=== PATIENT | female | born 1980 | race Caucasian/White ===

== ENCOUNTER → 2017-11-14 | Outpatient (CLI) | payer MEDICAID, SELFPAY | PROVIDERS: Family Provider Emergency Medicine; Visit Provider Orthopaedic Surgery | DX: Z48.89 Encounter for other specified surgical aftercare (principal) | CPT/HCPCS: 73560 ==

== ENCOUNTER 2017-11-15 17:08 | Emergency (ER) | payer MEDICAID, SELFPAY | END 2017-11-15 18:39 | disposition home or self-care (01) | PROVIDERS: Emergency Provider Emergency Medicine; Family Provider Nurse Practitioner Family; Visit Provider Emergency Medicine | DX: F41.0 Panic disorder [episodic paroxysmal anxiety] (principal); I10 Essential (primary) hypertension; J45.909 Unspecified asthma, uncomplicated; K21.9 Gastro-esophageal reflux disease without esophagitis; E03.9 Hypothyroidism, unspecified | CPT/HCPCS: 36415; 84484; 93005; 99283 ==

== ENCOUNTER → 2017-11-29 15:11 | Outpatient (REF) | payer MEDICAID, SELFPAY ==
[2017-11-29 17:29] LABS: Thyroid Stimulating Hormone 3.79 uIU/ml (0.358-3.740)
== END ==
LOC: LAB 15:11
PROVIDERS: Visit Provider Nurse Practitioner Family
DX: F41.9 Anxiety disorder, unspecified (principal)
CPT/HCPCS: 84439; 84443

== ENCOUNTER → 2018-01-10 12:44 | Outpatient (CLI) | payer MEDICAID, SELFPAY ==
--- NOTE | 2018-01-10 12:49 | US_ITS ---
US transvaginal HISTORY: Left lower quadrant pain, recent IUD in place ITS.REASON: LLQP ORDERING PHYSICIAN: Rajesh Rivas MD PATIENT AGE: 37 years COMPARISON: None FINDINGS: The uterus is slightly enlarged at 9.5 x 4.7 x 5.8 cm. Endometrium is thickened at 16 mm. Nabothian cysts are present measuring up to 13 mm. An IUD is demonstrated in the mid aspect of the endometrial area. The right ovary is 2.7 x 2.5 cm and contains a 1.5 cm cyst and another smaller cyst. The left ovary is 2.3 x 1.4 cm and has an unremarkable appearance. No cul-de-sac fluid is evident. IMPRESSION: 1. Enlarged uterus with thickened endometrium with IUD in place. 2. 1.5 cm right ovarian cyst.
== END ==
PROVIDERS: Family Provider Nurse Practitioner Family; PCP Nurse Practitioner Family; Visit Provider Nurse Practitioner Obstetrics & Gynecology
DX: R10.32 Left lower quadrant pain (principal)
CPT/HCPCS: 76830

== ENCOUNTER → 2018-03-01 12:53 | Outpatient (CLI) | payer MEDICAID, SELFPAY ==
[2018-03-01 15:33] LABS: Free T4 (Free Thyroxine) 0.92 ng/dl (0.76-1.46); Thyroid Stimulating Hormone 1.97 uIU/ml (0.358-3.740)
[2018-03-02 19:05] LABS: Triiodothyronine (T3) Free 2.8 pg/mL (2.0-4.4)
== END ==
PROVIDERS: PCP Nurse Practitioner Family; Visit Provider Otolaryngology
DX: E03.9 Hypothyroidism, unspecified (principal)
CPT/HCPCS: 36415; 84439; 84443; 84481

== ENCOUNTER → 2018-08-16 12:13 | Outpatient (CLI) | payer MEDICAID, SELFPAY ==
[2018-08-16 12:18] LABS: Microscopic, Urine URINE MICROSCOPIC (MICROSCOPIC)
[2018-08-16 12:56] LABS: Appearance,Urine SL CLOUDY (Clear); Blood, Urine Negative (Negative); Glucose,Urine (UA) Negative (Negative); Ketones,Urine 2+ (Negative); Leukocyte Esterase,Urine Negative (Negative); Nitrate,Urine Negative (Negative); Protein,Urine Negative (Negative); Specific Gravity, Urine 1.025 (1.005-1.030); Urobilinogen,Urine 0.2 EU/dl (0.2)
[2018-08-16 13:00] LABS: Color,Urine Dark Yellow (Yellow)
[2018-08-16 13:01] LABS: Bilirubin,Urine Negative (Negative)
[2018-08-16 13:29] LABS: Alanine Aminotransferase 72 U/L (12-78); Albumin Level 4.1 gm/dL (3.4-5.0); Albumin/Globulin Ratio 1.2 (1.1-1.8); Alkaline Phosphatase 134 U/L (46-116); Aspartate Amino Transferase 32 U/L (15-37); Bilirubin,Total 0.8 mg/dL (0.2-1.0); Blood Urea Nitrogen 11 mg/dL (7-18); Calcium 9.3 mg/dL (8.5-10.1); Carbon Dioxide 26 mmol/L (21.0-32.0); Chloride 103 mmol/L (98-107); Estimated Glomerular Filt Rate 94 ml/min (>60); GFR (African American) 114 ML/MIN (>60); Globulin 3.5 gm/dl (1.3-3.2); Glucose 89 mg/dL (74-106); Sodium 140 mmol/L (136-145); T4 (Thyroxine) 10.5 ug/dl (4.7-13.3); Thyroid Stimulating Hormone 0.39 uIU/ml (0.358-3.740); Total Protein,Serum 7.6 gm/dL (6.4-8.2)
[2018-08-16 13:41] LABS: Squamous Epithelial Cell,Urine 50-100 #/hpf (0-5); WBC,Urine Occasional #/hpf (0-3)
[2018-08-16 13:42] LABS: Bacteria,Urine 1+ /lpf
[2018-08-16 17:11] LABS: Basophils % 0.5 % (0.1-2.0); Eosinophils # 0.1 K/mm3 (0.0-0.4); Eosinophils % 1.1 % (0.1-12.0); Hematocrit 40.4 % (37.0-47.0); Hemoglobin 12.7 g/dL (12.2-16.2); Lymphocytes # 1.3 K/mm3 (0.7-4.5); Lymphocytes % 27.2 K/mm3 (10-50); Mean Corpuscular HGB Conc 31.5 g/dL (31.8-35.4); Mean Platelet Volume 9.3 fl (7.4-10.4); Monocytes # 0.4 K/mm3 (0.1-1.0); Monocytes % 7.9 % (1.7-9.3); Neutrophils # 3.1 K/mm3 (1.8-7.8); Neutrophils % 63.3 % (37.0-80.0); Platelet Count 301 K/mm3 (142-424); Red Blood Count 4.39 M/mm3 (4.20-5.40); Red Cell Distribution Width 14.2 % (11.5-17.5)
[2018-08-17 18:20] LABS: Vitamin B12 403 pg/mL (232-1245)
[2018-08-20 02:08] LABS: 1,25-Dihydroxy, Vitamin D-2 <10 pg/mL (.)
[2018-08-20 06:12] LABS: 1,25 Dihydroxy Vitamin D 36 pg/mL (.)
[2018-08-20 06:13] LABS: 1,25-Dihydroxy, Vitamin D-3 36 pg/mL (.)
== END ==
PROVIDERS: PCP Nurse Practitioner Family; Visit Provider Nurse Practitioner Family
DX: R53.83 Other fatigue (principal); R42 Dizziness and giddiness; F41.9 Anxiety disorder, unspecified
CPT/HCPCS: 36415; 80053; 81001; 82607; 82652; 84436; 84443; 85025; 93225; 93226

== ENCOUNTER → 2018-09-10 15:32 | Outpatient (CLI) | payer MEDICAID, SELFPAY ==
[2018-09-10 16:42] LABS: Anion Gap 14.7 mEq/L (5-15); Blood Urea Nitrogen 14 mg/dL (7-18); Calcium 9.2 mg/dL (8.5-10.1); Carbon Dioxide 27 mmol/L (21.0-32.0); Chloride 104 mmol/L (98-107); Creatinine,Serum 0.75 mg/dL (0.55-1.02); Estimated Glomerular Filt Rate 87 ml/min (>60); Free Thyroxine Index 3.4 ug/dL (5.93-13.13); GFR (African American) 105 ML/MIN (>60); Glucose 96 mg/dL (74-106); Potassium 3.7 mmoL/L (3.5-5.1); Sodium 142 mmol/L (136-145); T4 (Thyroxine) 9.3 ug/dl (4.7-13.3); Thyroid Stimulating Hormone 0.54 uIU/ml (0.358-3.740); Triiodothryronine (T3) Uptake 37 % (31-39)
== END ==
PROVIDERS: Family Provider Nurse Practitioner Family; PCP Nurse Practitioner Family; Visit Provider Physician Assistant
DX: R00.2 Palpitations (principal); I47.1 Supraventricular tachycardia; R06.09 Other forms of dyspnea; R07.9 Chest pain, unspecified; Z82.49 Family history of ischemic heart disease and other diseases of the circulatory system
CPT/HCPCS: 36415; 80048; 83735; 84436; 84443; 84479

== ENCOUNTER → 2018-09-19 13:50 | Outpatient (CLI) | payer MEDICAID, SELFPAY ==
--- NOTE | 2018-09-19 13:52 | CA_ITS ---
PROCEDURE: 2-D M-mode and color Doppler study INDICATIONS FOR THE TEST: Chest pain COPD Heart Murmur Tobacco Smoking Palpitations+ Fatigue+ Syncope Edema+ Hypertension Diabetes Mellitus Rheumatic Fever SOB+CHAPA+Obesity+Hyperlipidemia Family History HD+ Additional History SVT,hx of gastric sleeve surgery 07/2018 symptoms worse since then PATIENT INFORMATION HEIGHT: 69 WEIGHT: 324 GENDER: Female B/P: 151/85 2-D/M-MODE INTERPRETATION: 2-D MEASUREMENTS OBSERVED VALUES IN CMS Right Ventricular Dimension (RVDd) 2.5 Interventricular Septum (Thickness)(IVsd) 1.1 Left Ventricular Internal Dimensions(LVIDd) 5.6 Left Ventricular Posterior Wall (Thickness)(LVPWd) 1.1 Aortic Root 3.0 Aortic Cusp Separation 2.4 Left Atrial Dimensions (LAD) 4.3 2D 1. Left atrium is qualitatively mildly enlarged, left ventricle is normal size, there is no concentric left ventricular hypertrophy, visually estimated ejection fraction 55% with no regional wall motion abnormality. 2. Right atrium and right ventricle are normal size and contractility. 3. The aortic, mitral and tricuspid valvular grossly normal. 4. The pulmonic valve is poorly visualized. 5. No significant pericardial effusion noted. DOPPLER INTERROGATION: Doppler interrogation of the aortic, mitral and tricuspid valvular presence of mild mitral and tricuspid regurgitation, tricuspid regurgitation jet velocity is inadequate for calculation of the right ventricular systolic pressure, diastolic parameters are within normal range. CONCLUSION: 1. Mildly enlarged left atrium, normal left ventricular size, visually estimated ejection fraction 55% with no regional wall motion abnormality, diastolic parameters are within normal range. 2. Mild mitral and tricuspid regurgitation 3. No significant pericardial effusion noted.
== END ==
PROVIDERS: PCP Emergency Medicine; Visit Provider Internal Medicine
DX: I47.1 Supraventricular tachycardia (principal); R00.2 Palpitations; R06.09 Other forms of dyspnea; R07.9 Chest pain, unspecified; Z82.49 Family history of ischemic heart disease and other diseases of the circulatory system
CPT/HCPCS: 93306

== ENCOUNTER → 2019-01-02 16:16 | Outpatient (CLI) | payer MEDICAID, SELFPAY ==
[2019-01-02 17:24] LABS: Basophils % 0.6 % (0.1-2.0); Eosinophils # 0.1 K/mm3 (0.0-0.4); Eosinophils % 0.9 % (0.1-12.0); Hematocrit 41.5 % (37.0-47.0); Hemoglobin 13.2 g/dL (12.2-16.2); Mean Corpuscular HGB Conc 31.9 g/dL (31.8-35.4); Mean Corpuscular Hemoglobin 30.2 pg (27.0-31.2); Mean Corpuscular Volume 94.6 fl (81-99); Mean Platelet Volume 7.5 fl (7.4-10.4); Monocytes # 0.4 K/mm3 (0.1-1.0); Monocytes % 5.9 % (1.7-9.3); Neutrophils # 4.6 K/mm3 (1.8-7.8); Neutrophils % 64.6 % (37.0-80.0); Platelet Count 294 K/mm3 (142-424); Red Blood Count 4.39 M/mm3 (4.20-5.40); Red Cell Distribution Width 13.4 % (11.5-17.5); White Blood Count 7.2 K/mm3 (4.8-10.8)
[2019-01-02 18:11] LABS: Alanine Aminotransferase 57 U/L (12-78); Albumin/Globulin Ratio 1.1 (1.1-1.8); Alkaline Phosphatase 113 U/L (46-116); Amylase 41 U/L (25-115); Anion Gap 13.2 mEq/L (5-15); Aspartate Amino Transferase 24 U/L (15-37); Bilirubin,Total 0.6 mg/dL (0.2-1.0); Blood Urea Nitrogen 17 mg/dL (7-18); Calcium 9.4 mg/dL (8.5-10.1); Carbon Dioxide 27 mmol/L (21.0-32.0); Chloride 103 mmol/L (98-107); Creatinine,Serum 0.79 mg/dL (0.55-1.02); Estimated Glomerular Filt Rate 82 ml/min (>60); GFR (African American) 99 ML/MIN (>60); Globulin 3.5 gm/dl (1.3-3.2); Glucose 86 mg/dL (74-106); Lipase 123 u/L (73-393); Potassium 4.2 mmoL/L (3.5-5.1); Sodium 139 mmol/L (136-145); Total Protein,Serum 7.5 gm/dL (6.4-8.2)
[2019-01-04 07:16] LABS: Hep A Ab, IgM Negative (Negative); Hepatitis B Core Antibody IgM Negative (Negative); Hepatitis B Surface Antigen Negative (Negative)
[2019-01-07 09:52] LABS: Hepatitis C Antibody <0.1 s/co ratio (0.0-0.9)
== END ==
PROVIDERS: Visit Provider Nurse Practitioner Family
DX: R74.8 Abnormal levels of other serum enzymes (principal)
CPT/HCPCS: 36415; 80053; 80074; 82150; 83690; 85025

== ENCOUNTER 2019-04-20 12:25 | Emergency (ER) | payer MEDICAID, SELFPAY ==
[2019-04-20 12:35] VITALS: BP 144/85; PULSE 68; RESP 19; TEMP 36.5; O2SAT 99; BMI 37.2
--- NOTE | 2019-04-20 13:37 | HMH.EDUTC ---
[facility] [place]ression: Lower back pain Qualifiers: Chronicity: acute Back pain laterality: left Sciatica presence: with sciatica Sciatica laterality: sciatica of left side Qualified Code(s): M54.42 - Lumbago with sciatica, left side Disposition: Home, Self-Care Condition on Discharge: Good Instructions: Sciatica (Alternative Therapy), Sciatica, Low Back Pain, DI for Low Back Pain, DI for Sciatica, DI for Chronic Pain -- Adult, DI for Back Pain With Sciatica Additional Instructions: *Ibuprofen mick 6 hours with meal as needed for pain/inflammation *Remember you had a Toradol shot in the clinic today, which is similar to Motrin *Not additional anti-inflammatory like motrin, aleve, advil with the above amount of ibuprofen. You can still take Tylenol every 4 hours as needed if you need something else for pain *Ice 20 minutes every 2 hours for the first 48 hours after the initial injury followed by moist heat every 20 minutes 3-4 times a day to affected area *Muscle relaxer every 8 hours as needed for muscle spasms but remember, it WILL cause drowsiness You cannot take it and drive, operate machinery or care for small children. *Keep this area active, no movement leads to more stiffness, However take it easy and avoid heavy lifting pushing or pulling *Follow up with you family doctor if no improvement for further treatment Make sure to do stretches like you was shown in [facility] these may help to relieve sciatica pain Straight to ER if any life threatening symptoms Prescriptions: Cyclobenzaprine HCl [Flexeril 10mg tablet] 10 mg PO TID PRN #12 tab PRN Reason: Muscle Spasm Referrals: Lauren Kwong APRN [Primary Care Provider] - As needed Time of Disposition: 13:46 Medical Decision Making - Carlo Inquiry Pt receiving controlled substance: No Carlo was queried for this patient: No Vital Signs: 04/20/19 12:35 Temperature 97.7 F Temperature Source Oral Pulse Rate [Right Brachial] 68 Respiratory Rate 19 Blood Pressure [Right Arm] 144/85 H Blood Pressure Mean [Right Arm] 104 Blood Pressure Source [Right Arm] Automatic Cuff Blood Pressure Position [Right Arm] Sitting 02 Sat by Pulse Oximetry 99 Oxygen Delivery Method Room Air Orders (Tests/Meds): ED MEDICATIONS Discontinued Medications Generic Name Dose Route Start Last Admin Trade Name Freq PRN Reason Stop Dose Admin Ketorolac Tromethamine 60 mg 04/20/19 13:37 04/20/19 13:49 Toradol 60mg/2ml Vial IM 04/20/19 13:38 60 mg ONCE ONE Administration Methylprednisolone Sodium Succinate 125 mg 04/20/19 13:37 04/20/19 13:49 Solu-Medrol 125mg/2ml Vial IM 04/20/19 13:38 125 mg ONCE ONE Administration - Reevaluation(s) Time: 13:43 Reevaluation #1: Denies [facility] [place] - General Stated complaint: back pain Time Seen by Provider: 04/20/19 13:37 Mode of Arrival: Family Vehicle Source of Information: Patient Limitations: No Limitations Description of Symptoms (Recalled from Triage Doc. by RN): C/O LEFT SIDED SCIATIC PAIN HEENT Symptoms (Recalled from RN notes): No Resp Symptoms (Recalled from RN notes): No Skin Symptoms (Recalled from RN notes): No MS Symptoms (Recalled from RN notes): Yes Functional Status (Recalled from RN notes): N/A - History of Present Illness Provider Complaint: Patient states that she has history of sciatica States that she noticed she was starting to have pain in her lower back area and it was radiating down left leg states it has continued to get worse so she came in to get it checked before it got to bad Denies bowel or bladder involvement - Related Data Home Medications Medication Instructions Recorded Confirmed levonorgestrel 20 mcg/24 hours (5 1 insert INTRAUTERI ONCE 01/08/18 04/10/19 yrs) 52 mg intrauterine device omeprazole 20 mg capsule,delayed 20 mg PO DAILY 30 Days #30 cap 08/16/18 04/10/19 release Albuterol Sulfate [Albuterol HFA 1 puff INHALATION Q6H 08/19/18
--- NOTE | 2019-04-20 13:40 | ED_ITS ---
[facility] [place] Clinical Impression: Lower back pain Qualifiers: Chronicity: acute Back pain laterality: left Sciatica presence: with sciatica Sciatica laterality: sciatica of left side Qualified Code(s): M54.42 - Lumbago with sciatica, left side Disposition: Home, Self-Care Condition on Discharge: Good Instructions: Sciatica (Alternative Therapy), Sciatica, Low Back Pain, DI for Low Back Pain, DI for Sciatica, DI for Chronic Pain -- Adult, DI for Back Pain With Sciatica Additional Instructions: *Ibuprofen mick 6 hours with meal as needed for pain/inflammation *Remember you had a Toradol shot in the clinic today, which is similar to Motrin *Not additional anti-inflammatory like motrin, aleve, advil with the above amount of ibuprofen. You can still take Tylenol every 4 hours as needed if you n eed something else for pain *Ice 20 minutes every 2 hours for the first 48 hours after the initial injury followed by moist heat every 20 minutes 3-4 times a day to affected area *Muscle relaxer every 8 hours as needed for muscle spasms but remember, it WILL cause drowsiness You cannot take it and drive, operate machinery or care for small children. *Keep this area active, no movement leads to more stiffness, However take it easy and avoid heavy lifting pushing or pulling *Follow up with you family doctor if no improvement for further treatment Make sure to do stretches like you was shown in [facility] these may help to relieve sciatica pain Straight to ER if any life threatening symptoms Prescriptions: Cyclobenzaprine HCl [Flexeril 10mg tablet] 10 mg PO TID PRN #12 tab PRN Reason: Muscle Spasm Referrals: Lauren Kwong APRN [Primary Care Provider] - As needed Time of Disposition: 13:46 Medical Decision Making - Carlo Inquiry Pt receiving controlled substance: No Carlo was queried for this patient: No Vital Signs: 04/20/19 12:35 Temperature 97.7 F Temperature Source Oral Pulse Rate [Right Brachial] 68 Respiratory Rate 19 Blood Pressure [Right Arm] 144/85 H Blood Pressure Mean [Right Arm] 104 Blood Pressure Source [Right Arm] Automatic Cuff Blood Pressure Position [Right Arm] Sitting 02 Sat by Pulse Oximetry 99 Oxygen Delivery Method Room Air Orders (Tests/Meds): ED MEDICATIONS Discontinued Medications Generic Name Dose Route Start Last Admin Trade Name Eidlberto PRN Reason Stop Dose Admin Ketorolac Tromethamine 60 mg 04/20/19 13:37 04/20/19 13:49 Toradol 60mg/2ml Vial IM 04/20/19 13:38 60 mg ONCE ONE Administration Methylprednisolone Sodium Succinate 125 mg 04/20/19 13:37 04/20/19 13:49 Solu-Medrol 125mg/2ml Vial IM 04/20/19 13:38 125 mg ONCE ONE Administration - Reevaluation(s) Time: 13:43 Reevaluation #1: Denies [facility] [place] - General Stated complaint: back pain Time Seen by Provider: 04/20/19 13:37 Mode of Arrival: Family Vehicle Source of Information: Patient Limitations: No Limitations Description of Symptoms (Recalled from Triage Doc. by RN): C/O LEFT SIDED SCIATIC PAIN HEENT Symptoms (Recalled from RN notes): No Resp Symptoms (Recalled from RN notes): No Skin Symptoms (Recalled from RN notes): No MS Symptoms (Recalled from RN notes): Yes Functional Status (Recalled from RN notes): N/A - History of Present Illness Provider Complaint: Patient
[2019-04-20 14:00] VITALS: BP 144/85; PULSE 68; RESP 19; TEMP 36.5; O2SAT 99
== END 2019-04-20 14:01 | disposition home or self-care (01) ==
PROVIDERS: Emergency Provider Nurse Practitioner; PCP Nurse Practitioner Family
DX: M54.42 Lumbago with sciatica, left side (principal); J45.909 Unspecified asthma, uncomplicated; F41.8 Other specified anxiety disorders; E03.9 Hypothyroidism, unspecified; E78.5 Hyperlipidemia, unspecified; I10 Essential (primary) hypertension
CPT/HCPCS: 96372; 99201

== ENCOUNTER → 2019-06-23 13:53 | Outpatient (CLI) | payer MEDICAID, SELFPAY ==
[2019-06-23 16:21] LABS: Thyroid Stimulating Hormone 0.63 uIU/ml (0.358-3.740)
== END ==
PROVIDERS: Visit Provider Nurse Practitioner Family
DX: R53.83 Other fatigue (principal)
CPT/HCPCS: 84439; 84443

== ENCOUNTER → 2019-09-24 17:52 | Outpatient (CLI) | payer OTHER, SELFPAY ==
[2019-09-24 19:05] LABS: T4 (Thyroxine) 12.6 ug/dl (4.7-13.3); Thyroid Stimulating Hormone 0.23 uIU/ml (0.358-3.740)
[2019-09-24 19:33] LABS: Hemoglobin A1C 5.5 % (0.0-7.0)
== END ==
PROVIDERS: Visit Provider Nurse Practitioner Family
DX: R79.89 Other specified abnormal findings of blood chemistry (principal); R73.09 Other abnormal glucose
CPT/HCPCS: 83036; 84436; 84443

== ENCOUNTER 2020-09-18 20:08 | Emergency (ER) | payer OTHER, SELFPAY ==
[2020-09-18 20:14] VITALS: BP 141/81; PULSE 68; RESP 19; TEMP 37.1; O2SAT 100; BMI 28.6
--- NOTE | 2020-09-18 20:23 | HMH.EDUTC ---
[facility] [place] Clinical Impression: Lower back pain Qualifiers: Chronicity: unspecified Back pain laterality: left Sciatica presence: with sciatica Sciatica laterality: sciatica of left side Qualified Code(s): M54.42 - Lumbago with sciatica, left side Disposition: Home, Self-Care Condition on Discharge: Good Instructions: Sciatica, Low Back Pain, DI for Low Back Pain, DI for Sciatica, Methocarbamol Additional Instructions: *Ibuprofen mick 6 hours with meal as needed for pain/inflammation *Not additional anti-inflammatory like motrin, aleve, advil with the above amount of ibuprofen. You can still take Tylenol every 4 hours as needed if you need something else for pain *Ice 20 minutes every 2 hours for the first 48 hours after the initial injury followed by moist heat every 20 minutes 3-4 times a day to affected area *Muscle relaxer every 8 hours as needed for muscle spasms but remember, it WILL cause drowsiness You cannot take it and drive, operate machinery or care for small children. *Keep this area active, no movement leads to more stiffness, However take it easy and avoid heavy lifting pushing or pulling *Follow up with you family doctor if no improvement for further treatment Return if needed Take medication as prescribed Start oral steriods tomorrow Straight to ER if any life threatening symptoms Prescriptions: methylPREDNISolone [Medrol 4mg tab] 4 mg PO DIRECTED #21 tab Transmission Status: Received by [id number] methocarbamoL [Methocarbamol 750mg Tab] 750 mg PO BID PRN #10 tab PRN Reason: Muscle Spasm Transmission Status: Received by [id number] Referrals: Lauren Kwong APRN [Primary Care Provider] - As needed Time of Disposition: 20:37 Medical Decision Making - Carlo Inquiry Pt receiving controlled substance: No Carlo was queried for this patient: No Vital Signs: 09/18/20 20:14 Temperature 98.7 F Temperature Source Oral Pulse Rate [Radial] 68 Respiratory Rate 19 Blood Pressure [Right Arm] 141/81 H Blood Pressure Mean [Right Arm] 101 Blood Pressure Source [Right Arm] Automatic Cuff Blood Pressure Position [Right Arm] Sitting 02 Sat by Pulse Oximetry 100 Oxygen Delivery Method Room Air - Lab Data Lab results reviewed: Yes: I reviewed the patient's lab results. Lab Results 09/18/20 20:23: Tst Clinic Negative Orders (Tests/Meds): ED MEDICATIONS Discontinued Medications Generic Name Dose Route Start Last Admin Trade Name Edilberto PRN Reason Stop Dose Admin Methylprednisolone Sodium Succinate 125 mg 09/18/20 20:35 09/18/20 20:39 Methylprednisolone Sod Succ 125mg Vial IM 09/18/20 20:36 125 mg ONCE ONE Administration [facility] [place] - General Stated complaint: left leg pain Time Seen by Provider: 09/18/20 20:23 Mode of Arrival: Ambulatory Source of Information: Patient Limitations: No Limitations Description of Symptoms (Recalled from Triage Doc. by RN): left leg pain HEENT Symptoms (Recalled from RN notes): No Resp Symptoms (Recalled from RN notes): No Skin Symptoms (Recalled from RN notes): No MS Symptoms (Recalled from RN notes): Yes Functional Status (Recalled from RN notes): wnl - History of Present Illness Provider Complaint: Patient states that she has a history of sciatica pain States that for the last 3 days she has been having pain in her left lower back/buttock area that radiates down her left leg States that she has been trying to treat it at home with Ibuprofen but not helped much States that she has had to come in before and get steriods to help with the pain Denies loss of control of bowel or bladder - Related Data Home Medications Medication Instructions Recorded Confirmed Albuterol Sulfate [Ventolin HFA 1 puff INHALATION Q6H 08/19/18 04/09/20 Inhaler] Fluticasone Propionate [Flonase 2 spr NS DAILY 08/19/18 04/09/20 50mcg nasal spray 16gm] cholecalciferol (vitamin D3) 1,250 50,000 unit PO QWEEK 09/10/18 05
[2020-09-18 20:46] LABS: UTC Pregnancy Test, Urine Negative (Negative)
[2020-09-18 20:51] VITALS: BP 141/81; PULSE 68; RESP 19; TEMP 37.1; O2SAT 100
== END 2020-09-18 20:52 | disposition home or self-care (01) ==
PROVIDERS: Emergency Provider Nurse Practitioner; PCP Nurse Practitioner Family
DX: M54.42 Lumbago with sciatica, left side (principal); F41.8 Other specified anxiety disorders; J45.909 Unspecified asthma, uncomplicated; E03.9 Hypothyroidism, unspecified; F14.10 Cocaine abuse, uncomplicated
CPT/HCPCS: 81025; 96372; 99202

== ENCOUNTER → 2020-11-09 12:50 | Outpatient (CLI) | payer OTHER, SELFPAY ==
--- NOTE | 2020-11-09 13:41 | XR_ITS ---
PROCEDURE: XR KNEE RT 4V CLINICAL INDICATION: right knee pain; weightbearing COMPARISON: CR [id number] KNEE-LIMITED 2 VIEWS-RT from 08/13/2017 CR [id number] KNEE-LIMITED 2 VIEWS-RT from 11/14/2017 CR [id number] XR knee LT 3V from 08/19/2018 CR [id number] XR knee RT 2V from 08/19/2018 FINDINGS: Status post ACL repair. There are mild tricompartmental osteoarthritic changes. There is good alignment with no acute fracture or dislocation. Other findings:None. IMPRESSION: Status post ACL repair with mild osteoarthritis Dictated by: Ross Parra MD 11/09/2020 14:59 Ross Parra MD in [place] 11/09/2020 14:59
== END ==
PROVIDERS: PCP Nurse Practitioner Family; Visit Provider Orthopaedic Surgery
DX: M25.561 Pain in right knee (principal)
CPT/HCPCS: 73564

== ENCOUNTER → 2021-03-31 16:32 | Outpatient (CLI) | payer OTHER, SELFPAY ==
[2021-03-31 17:02] LABS: Basophils % 0.9 % (0.1-2.0); Eosinophils # 0.1 K/mm3 (0.0-0.4); Eosinophils % 1.6 % (0.1-12.0); Hematocrit 39.2 % (37.0-47.0); Hemoglobin 12.6 g/dL (12.2-16.2); Lymphocytes # 1.6 K/mm3 (0.7-4.5); Lymphocytes % 36.8 % (10-50); Mean Corpuscular Hemoglobin 30.4 pg (27.0-31.2); Mean Corpuscular Volume 94.7 fl (81-99); Mean Platelet Volume 8.9 fl (7.4-10.4); Monocytes # 0.4 K/mm3 (0.1-1.0); Monocytes % 8.3 % (1.7-9.3); Neutrophils # 2.2 K/mm3 (1.8-7.8); Neutrophils % 52.4 % (37.0-80.0); Platelet Count 298 K/mm3 (142-424); Red Blood Count 4.14 M/mm3 (4.20-5.40); Red Cell Distribution Width 12.9 % (11.5-17.5); White Blood Count 4.2 K/mm3 (4.8-10.8)
[2021-03-31 17:06] LABS: Alanine Aminotransferase 18 U/L (12-78); Albumin Level 4.3 g/dl (3.5-5.0); Albumin/Globulin Ratio 1.4 (1.1-1.8); Alkaline Phosphatase 52 U/L (38-126); Anion Gap 8.1 mEq/L (5-15); Aspartate Amino Transferase 30 U/L (14-36); Bilirubin,Total 0.7 mg/dl (0.2-1.3); Blood Urea Nitrogen 18 mg/dl (7-17); Calcium 9.6 mg/dl (8.4-10.2); Carbon Dioxide 29 mmol/L (22.0-30.0); Chloride 106 mmol/L (98-107); Chol/HDL Ratio 1.9 (1-3.5); Cholesterol 139 mg/dl (140-200); Estimated Glomerular Filt Rate 93 ml/min (>60); GFR (African American) 112 ML/MIN (>60); Glucose 82 mg/dl (74-100); HDL Cholesterol 72 mg/dl (40-60); Potassium 4.1 mmoL/L (3.5-5.1); Sodium 139 mmol/L (136-145); Total Protein,Serum 7.3 g/dl (6.3-8.2); Triglycerides 50 mg/dl (30-150); VLDL Cholesterol 10 mg/dL (0-40)
[2021-03-31 17:18] LABS: Direct LDL Cholesterol 46.91 mg/dL (100-129)
[2021-03-31 17:24] LABS: T4 (Thyroxine) 6.9 ug/dl (5.53-11.0)
[2021-03-31 17:26] LABS: 25-OH Vitamin D, Total 39.1 ng/mL (30-100)
[2021-03-31 17:37] LABS: Thyroid Stimulating Hormone 8.11 uIU/mL (0.465-4.68)
== END ==
PROVIDERS: Visit Provider Nurse Practitioner Family
DX: R73.03 Prediabetes (principal); E78.5 Hyperlipidemia, unspecified; I10 Essential (primary) hypertension; E55.9 Vitamin D deficiency, unspecified; Z79.899 Other long term (current) drug therapy
CPT/HCPCS: 80053; 80061; 82306; 83036; 84436; 84443; 85025

== ENCOUNTER 2021-04-10 14:31 | Emergency (ER) | payer OTHER, SELFPAY ==
[2021-04-10 14:42] VITALS: BP 109/76; PULSE 66; RESP 16; TEMP 36.5; O2SAT 100; BMI 29.3
[2021-04-10 14:54] LABS: Color,Urine Yellow (Yellow)
[2021-04-10 14:55] LABS: Apearance,Urine Clear (Clear); Blood, Urine Negative (Negative); Glucose,Urine (UA) Negative (Negative); Ketones,Urine Negative (Negative); Protein,Urine Trace (Negative); Specific Gravity, Urine 1.025 (1.005-1.030)
[2021-04-10 14:56] LABS: Bilirubin,Urine Negative (Negative); UTC Leukocyte Esterase,Urine 3+ (Negative); UTC Nitrate,Urine Negative (Negative); UTC Pregnancy Test, Urine Negative (Negative); Urobilinogen,Urine 0.2 EU/dl (0.2)
--- NOTE | 2021-04-10 14:59 | HMH.EDUTC ---
[facility] [place] Clinical Impression: Left upper quadrant abdominal pain Disposition: Home, Self-Care Condition on Discharge: Good Instructions: Acute Abdominal Pain, Omeprazole Additional Instructions: Follow up with your primary care doctor. If you pain worsens or if you have any additional concerns, please return and go to the ER. Take the medications as directed. Prescriptions: Ondansetron [Zofran 4mg ODT] 4 mg PO Q8HP PRN #20 tab.rapdis PRN Reason: Nausea Transmission Status: Received by [id number] Omeprazole [Omeprazole 20mg Capsule] 20 mg PO DAILY 30 Days #30 cap Transmission Status: Received by [id number] Referrals: Lauren Kwong APRN [Primary Care Provider] - Time of Disposition: 16:00 Medical Decision Making - Medical Records Medical records reviewed: No: I reviewed the patient's medical records. - Carlo Inquiry Pt receiving controlled substance: No Vital Signs: 04/10/21 14:42 04/10/21 16:09 Temperature 97.7 F 98 F Temperature Source Oral Pulse Rate 70 Pulse Rate [Right] 66 Respiratory Rate 16 14 Blood Pressure 111/74 Blood Pressure [Right Arm] 109/76 L Blood Pressure Mean [Right Arm] 87 Blood Pressure Source [Right Arm] Automatic Cuff Blood Pressure Position [Right Arm] Sitting 02 Sat by Pulse Oximetry 100 - Lab Data Lab results reviewed: Yes: I reviewed the patient's lab results. Lab Results 04/10/21 14:48: Urine Color Yellow, Urine Appearance Clear, Urine pH 6.0, Ur Specific [place] 1.025, Urine Protein Trace, Urine Glucose (UA) Negative, Urine Ketones Negative, Urine Blood Negative, Urine Nitrate Negative, Urine Bilirubin Negative, Urine Urobilinogen 0.2, Ur Leukocyte Esterase 3+ A, Tst Clinic Negative 04/10/21 15:15: WBC 4.7 L, RBC 4.15 L, Hgb 12.9, Hct 38.8, MCV 93.5, MCH 31.0, MCHC 33.1, RDW 13.2, Plt Count 281, MPV 7.8, Neut % (Auto) 55.2, Lymph % (Auto) 36.6, Perry % (Auto) 5.4, Eos % (Auto) 1.7, Baso % (Auto) 1.1, Neut # (Auto) 2.6, Lymph # (Auto) 1.7, Perry # (Auto) 0.3, Eos # (Auto) 0.1, Baso # (Auto) 0.1 04/10/21 15:15: Sodium 138, Potassium 4.1, Chloride 104, Carbon Dioxide 27, Anion Gap 7.0, BUN 14, Creatinine 0.80, Estimated Creat Clear 133, Estimated GFR 79, Est GFR ( Amer) 96, Glucose 97, Calcium 9.0, Total Bilirubin 0.7, AST 26, ALT 18, Alkaline Phosphatase 65, Total Protein 7.7, Albumin 4.6, Globulin 3.1, Albumin/Globulin Ratio 1.5, Amylase 61, Lipase 62 Result diagrams: 04/10/21 15:15 04/10/21 15:15 Orders (Tests/Meds): ORDERS Category Date Time Status Urine Culture Stat Micro 04/10/21 14:52 Received [facility] [place] - General Stated complaint: left side pain Time Seen by Provider: 04/10/21 14:59 Mode of Arrival: Ambulatory Source of Information: Patient Limitations: No Limitations Description of Symptoms (Recalled from Triage Doc. by RN): Pt c/o LUQ abd pain that comes and goes and radiates into her back. HEENT Symptoms (Recalled from RN notes): No Resp Symptoms (Recalled from RN notes): No Skin Symptoms (Recalled from RN notes): No MS Symptoms (Recalled from RN notes): No Functional Status (Recalled from RN notes): na - History of Present Illness Provider Complaint: She c/o left upper quadrant abdominal pain that began around 1 week ago. She rates her pain as a 4/10. She states the pain comes and goes. She cannot identify anything that makes her pain better, but eating has made it worse at times. She has had some nausea with it also. She denies diarrhea or constipation. - Related Data Home Medications Medication Instructions Recorded Confirmed Albuterol Sulfate [Ventolin HFA 1 puff INHALATION Q6H 08/19/18 03/31/21 Inhaler] Fluticasone Propionate [Flonase 2 spr NS DAILY 08/19/18 03/31/21 50mcg nasal spray 16gm] cholecalciferol (vitamin D3) 1,250 50,000 unit PO QWEEK 09/10/18 03/31/21 mcg (50,000 unit) capsule cyanocobalamin (vitamin B-12) 3,000 mcg PO DAILY 01/01/19
[2021-04-10 15:26] LABS: Basophils # 0.1 K/mm3 (0-0.2); Basophils % 1.1 % (0.1-2.0); Eosinophils # 0.1 K/mm3 (0.0-0.4); Eosinophils % 1.7 % (0.1-12.0); Hematocrit 38.8 % (37.0-47.0); Hemoglobin 12.9 g/dL (12.2-16.2); Lymphocytes # 1.7 K/mm3 (0.7-4.5); Lymphocytes % 36.6 % (10-50); Mean Corpuscular HGB Conc 33.1 g/dL (31.8-35.4); Mean Corpuscular Volume 93.5 fl (81-99); Mean Platelet Volume 7.8 fl (7.4-10.4); Monocytes # 0.3 K/mm3 (0.1-1.0); Monocytes % 5.4 % (1.7-9.3); Neutrophils # 2.6 K/mm3 (1.8-7.8); Neutrophils % 55.2 % (37.0-80.0); Platelet Count 281 K/mm3 (142-424); Red Blood Count 4.15 M/mm3 (4.20-5.40); Red Cell Distribution Width 13.2 % (11.5-17.5); White Blood Count 4.7 K/mm3 (4.8-10.8)
[2021-04-10 15:28] LABS: Chloride 104 mmol/L (98-107); Potassium 4.1 mmoL/L (3.5-5.1); Sodium 138 mmol/L (136-145)
[2021-04-10 15:30] LABS: Amylase 61 U/L (30-110)
[2021-04-10 15:31] LABS: Alanine Aminotransferase 18 U/L (12-78); Albumin Level 4.6 g/dl (3.5-5.0); Albumin/Globulin Ratio 1.5 (1.1-1.8); Alkaline Phosphatase 65 U/L (38-126); Aspartate Amino Transferase 26 U/L (14-36); Bilirubin,Total 0.7 mg/dl (0.2-1.3); Blood Urea Nitrogen 14 mg/dl (7-17); Carbon Dioxide 27 mmol/L (22.0-30.0); Creatinine Clearance Estimated 133 mL/min (50-200); Estimated Glomerular Filt Rate 79 ml/min (>60); GFR (African American) 96 ML/MIN (>60); Globulin 3.1 g/dL (1.3-3.2); Glucose 97 mg/dl (74-100); Lipase 62 U/L (23-300); Total Protein,Serum 7.7 g/dl (6.3-8.2)
[2021-04-10 16:09] VITALS: BP 111/74; PULSE 70; RESP 14; TEMP 36.6
== END 2021-04-10 16:09 | disposition home or self-care (01) ==
PROVIDERS: Emergency Provider Nurse Practitioner Family; PCP Nurse Practitioner Family
DX: R10.12 Left upper quadrant pain (principal); E03.9 Hypothyroidism, unspecified; F41.8 Other specified anxiety disorders; Z79.899 Other long term (current) drug therapy
CPT/HCPCS: 80053; 81003; 81025; 82150; 83690; 85025; 87086; 99202; G0463

== ENCOUNTER → 2021-04-29 15:09 | Outpatient (CLI) | payer OTHER, SELFPAY ==
--- NOTE | 2021-04-29 15:10 | CT_ITS ---
PROCEDURE INFORMATION: Exam: CT Abdomen And Pelvis Without Contrast Exam date and time: 04/29/2021 3:10 PM Age: 41 years old Clinical indication: Abdominal pain; Generalized; Patient HX: Left sided abd pain TECHNIQUE: Imaging protocol: Computed tomography of the abdomen and pelvis without contrast. Radiation optimization: All CT scans at this facility use at least one of these dose optimization techniques: automated exposure control; mA and/or kV adjustment per patient size (includes targeted exams where dose is matched to clinical indication); or iterative reconstruction. COMPARISON: ABDPELW CT ABD PELVIS W/ CONTRAST 01/10/2016 9:07 AM FINDINGS: Lungs: Linear atelectasis or scarring within the right middle lobe. Liver: Mild hepatomegaly. Gallbladder and bile ducts: Normal Pancreas: Normal. Spleen: Normal. Adrenal glands: Normal. No mass. Kidneys and ureters: Normal. Stomach and bowel: Changes of prior gastric sleeve procedure. Colonic diverticulosis. Several loops of nondilated, gas and fluid-filled small bowel, which is a nonspecific finding, but can be seen with enteritis. Appendix: Appendix is normal. Intraperitoneal space: Unremarkable. No free air. No significant fluid collection. Vasculature: Unremarkable. No abdominal aortic aneurysm. Lymph nodes: Unremarkable. No enlarged lymph nodes. Urinary bladder: Unremarkable as visualized. Reproductive: 3.5 cm right ovarian cyst. Bones/joints: Multilevel thoracolumbar spine degenerative changes. Soft tissues: Normal. IMPRESSION: 1. Several loops of nondilated, gas and fluid-filled small bowel, which is a nonspecific finding, but can be seen with enteritis. 2. 3.5 cm right ovarian cyst. Consider further evaluation with sonography.
== END ==
PROVIDERS: PCP Nurse Practitioner Family; Visit Provider Nurse Practitioner Family
DX: R10.12 Left upper quadrant pain (principal)
CPT/HCPCS: 74176

== ENCOUNTER → 2021-04-29 15:30 | Outpatient (CLI) | payer OTHER, SELFPAY ==
[2021-04-29 15:40] LABS: Basophils # 0.1 K/mm3 (0-0.2); Basophils % 0.9 % (0.1-2.0); Eosinophils # 0.1 K/mm3 (0.0-0.4); Hematocrit 37.9 % (37.0-47.0); Hemoglobin 12.6 g/dL (12.2-16.2); Lymphocytes # 1.5 K/mm3 (0.7-4.5); Lymphocytes % 19.6 % (10-50); Mean Corpuscular HGB Conc 33.2 g/dL (31.8-35.4); Mean Corpuscular Volume 93.2 fl (81-99); Mean Platelet Volume 7.5 fl (7.4-10.4); Monocytes # 0.5 K/mm3 (0.1-1.0); Monocytes % 6.4 % (1.7-9.3); Neutrophils # 5.5 K/mm3 (1.8-7.8); Neutrophils % 72.1 % (37.0-80.0); Platelet Count 277 K/mm3 (142-424); Red Blood Count 4.07 M/mm3 (4.20-5.40); Red Cell Distribution Width 13.1 % (11.5-17.5); White Blood Count 7.6 K/mm3 (4.8-10.8)
== END ==
PROVIDERS: Visit Provider Nurse Practitioner Family
DX: D72.819 Decreased white blood cell count, unspecified (principal)
CPT/HCPCS: 36415; 85025

== ENCOUNTER 2021-08-13 19:48 | Emergency (ER) | payer OTHER, SELFPAY ==
[2021-08-13 19:50] VITALS: BP 144/69; PULSE 81; RESP 20; TEMP 36.6; O2SAT 100; BMI 31.1
--- NOTE | 2021-08-13 20:10 | HMH.EDUTC ---
[facility] [place] Clinical Impression: Bronchitis Disposition: Home, Self-Care Condition on Discharge: Good Instructions: DI for Acute Bronchitis Additional Instructions: You have been tested for COVID19. Please isolate as if you are positive until test results received. Followup with Lauren this week if not improving. Prescriptions: Albuterol Sulfate [Albuterol Sulfate Hfa] 6.7 gm IH Q4HP PRN 30 Days #1 each PRN Reason: Shortness Of Breath Transmission Status: Pending to [facility] Doxycycline Hyclate [Doxycycline Hyclate 100mg Tablet] 100 mg PO Q12 10 Days #20 tab Transmission Status: Pending to [facility] Guaifenesin/Dextromethorphan [Mucinex Dm ER 1,200-60 mg Tab] 1 tab PO BID 10 Days #20 tab Transmission Status: Pending to [facility] predniSONE [Prednisone 20mg Tab] 20 mg PO BID 5 Days #10 tab Transmission Status: Pending to [facility] Referrals: Lauren Kwong APRN [Primary Care Provider] - Time of Disposition: 20:24 Medical Decision Making - Carlo Inquiry Pt receiving controlled substance: No Vital Signs: 08/13/21 19:50 Temperature 97.9 F Temperature Source Oral Pulse Rate [Right Brachial] 81 Respiratory Rate 20 Blood Pressure [Right Arm] 144/69 H Blood Pressure Mean [Right Arm] 94 Blood Pressure Source [Right Arm] Automatic Cuff Blood Pressure Position [Right Arm] Sitting 02 Sat by Pulse Oximetry 100 Oxygen Delivery Method Room Air Orders (Tests/Meds): ORDERS Category Date Time Status Covid-19 Nasal PCR ([facility]) Routine Lab 08/13/21 20:09 Ordered [facility] [place] - General Stated complaint: cough nausea congestion Time Seen by Provider: 08/13/21 20:10 Mode of Arrival: Ambulatory Source of Information: Patient Limitations: No Limitations Description of Symptoms (Recalled from Triage Doc. by RN): PATIENT C/O NAUSEA, COUGH, HEADACHE, STOMACH ACHE AND DIZZINESS SINCE SUNDAY NIGHT HEENT Symptoms (Recalled from RN notes): Yes Resp Symptoms (Recalled from RN notes): No Skin Symptoms (Recalled from RN notes): No MS Symptoms (Recalled from RN notes): No Functional Status (Recalled from RN notes): WNL - History of Present Illness Provider Complaint: Patient has had cough, nausea, headache, body aches, vomiting X 2 days. She has had fever. Has had two negative rapid COVID tests at work and has been vaccinated. Onset (ago): day(s) (2) Location: chest Relieving factors: none Exacerbating factors: none Associated symptoms: cough, fever/chills, headaches, malaise, nausea/vomiting, shortness of breath Treatments prior to arrival: none - Related Data Home Medications Medication Instructions Recorded Confirmed Albuterol Sulfate [Ventolin HFA 1 puff INHALATION Q6H 08/19/18 04/13/21 Inhaler] Fluticasone Propionate [Flonase 2 spr NS DAILY 08/19/18 04/13/21 50mcg nasal spray 16gm] cholecalciferol (vitamin D3) 1,250 50,000 unit PO QWEEK 09/10/18 04/13/21 mcg (50,000 unit) capsule cyanocobalamin (vitamin B-12) 3,000 mcg PO DAILY 01/01/19 04/13/21 3,000 mcg capsule nebivolol 5 mg tablet 5 mg PO DAILY 09/24/19 04/13/21 thiamine HCl (vitamin B1) 100 mg PO 12/30/19 04/13/21 tablet Previous Rx's Medication Instructions Recorded fluticasone furoate 100 See Rx Instructions .ROUTE 04/10/19 mcg-vilanterol 25 mcg/dose .COMPLEX #60 unspecified inhalation powder montelukast 10 mg tablet 10 mg PO QHS #90 tab 03/31/21 sumatriptan succinate 100 mg tablet 100 mg PO DAILY PRN #9 tab 03/31/21 Omeprazole [Omeprazole 20mg 20 mg PO DAILY 30 Days #30 cap 04/10/21 Capsule] Ondansetron [Zofran 4mg ODT] 4 mg PO Q8HP PRN #20 tab.rapdis 04/10/21 levothyroxine 175 mcg tablet 175 mcg PO DAILY #30 tab 04/11/21 dicyclomine 10 mg capsule 10 mg PO QID #120 cap 04/13/21 bisoprolol fumarate 5 mg tablet See Rx Instructions .ROUTE 06/28/21 .COMPLEX #30 tab cetirizine 10 mg tablet See Rx Instructions .ROUTE 06/28/21 .COMPLEX #90 tab
[2021-08-13 20:31] VITALS: BP 144/69; PULSE 81; RESP 20; TEMP 36.6; O2SAT 100
== END 2021-08-13 20:41 | disposition home or self-care (01) ==
PROVIDERS: Emergency Provider Physician Assistant; PCP Nurse Practitioner Family
DX: J20.9 Acute bronchitis, unspecified (principal); Z20.822 Contact with and (suspected) exposure to COVID-19; F41.8 Other specified anxiety disorders; E03.9 Hypothyroidism, unspecified; Z79.899 Other long term (current) drug therapy
CPT/HCPCS: 96372; 99202; C9803; G0463; U0003; U0005

== ENCOUNTER 2021-10-28 20:25 | Emergency (ER) | payer OTHER, SELFPAY ==
[2021-10-28] VITALS (7 sets, daily range): BP systolic 99–123; BP diastolic 53–78; PULSE 70–81; RESP 12–18; TEMP 36.6; O2SAT 100; BMI 32.5
--- NOTE | 2021-10-28 20:18 | ECG_ITS ---
APPROVED REPORT Exam: Resting ECG HR:71 bpm ECG Measurements Heart Rate 71 AXES FL 194 P 76 QRSd 72 QRS 36 QT 380 T 42 QTc 412 Conclusion Normal sinus rhythm Left atrial abnormality Late R wave progression Abnormal ECG Electronically signed by : Florencio Clark MD 10/29/2021 08:35:22
--- NOTE | 2021-10-28 20:34 | XR_ITS ---
PROCEDURE INFORMATION: Exam: XR Chest Exam date and time: 10/28/2021 8:34 PM Age: 41 years old Clinical indication: Sternal or substernal pain; Additional info: Cp TECHNIQUE: Imaging protocol: XR of the chest. Views: 2 views. COMPARISON: CR CXR CHEST(2 VIEWS-NOT PORTABLE) 07/03/2017 2:24 PM FINDINGS: Lungs: Unremarkable. No consolidation. Pleural spaces: Unremarkable. No pleural effusion. No pneumothorax. Heart/Mediastinum: Unremarkable. No cardiomegaly. Bones/joints: Unremarkable. IMPRESSION: No acute findings.
[2021-10-28 20:46] LABS: Basophils # 0.1 K/mm3 (0-0.2); Basophils % 0.9 % (0.1-2.0); Eosinophils # 0.1 K/mm3 (0.0-0.4); Eosinophils % 1.6 % (0.1-12.0); Hematocrit 40.1 % (37.0-47.0); Hemoglobin 12.6 g/dL (12.2-16.2); Lymphocytes % 30.6 % (10-50); Mean Corpuscular HGB Conc 31.5 g/dL (31.8-35.4); Mean Corpuscular Hemoglobin 29.1 pg (27.0-31.2); Mean Corpuscular Volume 92.5 fl (81-99); Mean Platelet Volume 7.5 fl (7.4-10.4); Monocytes # 0.5 K/mm3 (0.1-1.0); Monocytes % 7.6 % (1.7-9.3); Neutrophils # 3.9 K/mm3 (1.8-7.8); Neutrophils % 59.3 % (37.0-80.0); Platelet Count 338 K/mm3 (142-424); Red Blood Count 4.33 M/mm3 (4.20-5.40); Red Cell Distribution Width 13.4 % (11.5-17.5); White Blood Count 6.6 K/mm3 (4.8-10.8)
[2021-10-28 20:48] LABS: Coronavirus 19, PCR Not Detected (NotDetected); Influenza A, PCR Not Detected (NotDetected); Influenza B, PCR Not Detected (NotDetected)
[2021-10-28 21:03] LABS: Alanine Aminotransferase 25 U/L (12-78); Albumin Level 4.3 g/dl (3.5-5.0); Albumin/Globulin Ratio 1.4 (1.1-1.8); Alkaline Phosphatase 64 U/L (38-126); Anion Gap 8.9 mEq/L (5-15); Aspartate Amino Transferase 43 U/L (14-36); Bilirubin,Total 0.6 mg/dl (0.2-1.3); Blood Urea Nitrogen 20 mg/dl (7-17); Calcium 9.2 mg/dl (8.4-10.2); Carbon Dioxide 28 mmol/L (22.0-30.0); Chloride 105 mmol/L (98-107); Creatinine Clearance Estimated 147 mL/min (50-200); Estimated Glomerular Filt Rate 79 ml/min (>60); GFR (African American) 96 ML/MIN (>60); Globulin 3.1 g/dL (1.3-3.2); Glucose 94 mg/dl (74-100); Potassium 3.9 mmoL/L (3.5-5.1); Sodium 138 mmol/L (136-145); Total Protein,Serum 7.4 g/dl (6.3-8.2)
[2021-10-28 21:08] LABS: C-Reactive Protein 0.4 mg/L (0-4)
--- NOTE | 2021-10-28 21:09 | HMH.EDCP ---
ED Disposition Clinical Impression: Chest pain Qualifiers: Chest pain type: precordial pain Qualified Code(s): R07.2 - Precordial pain Disposition: Home, Self-Care Condition on Discharge: Good Instructions: DI for Chest Pain Additional Instructions: see card sunday at 0900 and use meds Prescriptions: Aspirin [Aspirin 81mg EC Tab] 81 mg PO DAILY #30 tab Transmission Status: Pending to [facility] Isosorbide Mononitrate [Imdur 30mg ER tablet] 30 mg PO DAILY #30 tab Transmission Status: Pending to [facility] Referrals: Lauren Kwong APRN [Primary Care Provider] - - Critical Care Critical Care Time: No Attestation: On 10/28/21, the high probability of a clinically significant, sudden or life threatening deterioration of the following system(s) required my full and direct attention, intervention and personal management. The time I documented below is in addition to time spent performing reported procedures but includes the following listed in this critical care notation. Medical Decision Making - Medical Records Medical records reviewed: Yes: I reviewed the patient's medical records. - Carlo Inquiry Pt receiving controlled substance: No Vital Signs: 10/28/21 20:25 10/28/21 20:27 10/28/21 20:30 Temperature 97.8 F Temperature Source Oral Pulse Rate 81 Pulse Rate [Right] 70 Respiratory Rate 18 12 Blood Pressure 123/78 Blood Pressure [Right Arm] 111/69 Blood Pressure Mean 89 Blood Pressure Mean [Right Arm] 83 02 Sat by Pulse Oximetry 100 100 10/28/21 20:32 10/28/21 21:00 10/28/21 21:30 Temperature Temperature Source Pulse Rate Pulse Rate [Right] Respiratory Rate Blood Pressure 116/73 103/62 L 100/53 L Blood Pressure [Right Arm] Blood Pressure Mean 89 75 66 Blood Pressure Mean [Right Arm] 02 Sat by Pulse Oximetry 10/28/21 22:00 Temperature Temperature Source Pulse Rate Pulse Rate [Right] Respiratory Rate Blood Pressure 99/53 L Blood Pressure [Right Arm] Blood Pressure Mean 65 Blood Pressure Mean [Right Arm] 02 Sat by Pulse Oximetry - Lab Data Lab results reviewed: Yes: I reviewed the patient's lab results. Lab Results 10/28/21 20:28: WBC 6.6, RBC 4.33, Hgb 12.6, Hct 40.1, MCV 92.5, MCH 29.1, MCHC 31.5 L, RDW 13.4, Plt Count 338, MPV 7.5, Neut % (Auto) 59.3, Lymph % (Auto) 30.6, Dougherty % (Auto) 7.6, Eos % (Auto) 1.6, Baso % (Auto) 0.9, Neut # (Auto) 3.9, Lymph # (Auto) 2.0, Dougherty # (Auto) 0.5, Eos # (Auto) 0.1, Baso # (Auto) 0.1 10/28/21 20:28: Sodium 138, Potassium 3.9, Chloride 105, Carbon Dioxide 28, Anion Gap 8.9, BUN 20 H, Creatinine 0.80, Estimated Creat Clear 147, Estimated GFR 79, Est GFR ( Amer) 96, Glucose 94, Calcium 9.2, Total Bilirubin 0.6, AST 43 H, ALT 25, Alkaline Phosphatase 64, Troponin I < 0.01, C-Reactive Protein 0.4, Total Protein 7.4, Albumin 4.3, Globulin 3.1, Albumin/Globulin Ratio 1.4 10/28/21 20:28: Serum HCG, Qual Negative 10/28/21 20:28: ESR 17 10/28/21 20:28: Procalcitonin 0.040 10/28/21 20:38: SARS-CoV-2 (PCR) Not detected, Influenza A Untype (PCR) Not detected, Influenza Type B (PCR) Not detected 10/28/21 23:22: Troponin I < 0.01 Result diagrams: 10/28/21 20:28 10/28/21 20:28 Orders (Tests/Meds): ED MEDICATIONS Generic Name Dose Route Start Last Admin Trade Name Freq PRN Reason Stop Dose Admin Sodium Chloride 1,000 mls @ 999 mls/hr 10/28/21 20:45 10/28/21 20:38 Sod Chlor 0.9% 1000ml Bag IV 10/28/21 21:45 999 mls/hr .Q1H1M FABI Administration Discontinued Medications Generic Name Dose Route Start Last Admin Trade Name Freq PRN Reason Stop Dose Admin Aspirin 324 mg 10/28/21 20:36 12 20:38 Aspirin 81mg Chewable Tablet PO 10/28/21 20:37 324 mg ONCE ONE Administration Iopamidol 70 ml 10/28/21 22:18 10/28/21 22:19 Iopamidol-370 (76%);100ml Bottle IV 10/28/21 22:19 70 ml ONCE ONE Administration Morphine Sulfate 4 mg 10/19
[2021-10-28 21:22] LABS: Erythrocyte Sedimentation Rate 17 mm/hr (0-20)
[2021-10-28 21:26] LABS: Troponin I < 0.01 ng/ml (0.00-0.034)
--- NOTE | 2021-10-28 21:45 | CT_ITS ---
PROCEDURE INFORMATION: Exam: CTA Chest With Contrast Exam date and time: 10/28/2021 9:45 PM Age: 41 years old Clinical indication: Sternal or substernal pain; Additional info: Cp TECHNIQUE: Imaging protocol: Computed tomographic angiography of the chest with contrast. 3D rendering (Not supervised by radiologist): MIP and/or 3D reconstructed images were created by the technologist. Radiation optimization: All CT scans at this facility use at least one of these dose optimization techniques: automated exposure control; mA and/or kV adjustment per patient size (includes targeted exams where dose is matched to clinical indication); or iterative reconstruction. Contrast material: ISOVYE 370; Contrast volume: 70 ml; Contrast route: INTRAVENOUS (IV); COMPARISON: [facility] CT CHEST W/O CONTRAST 01/31/2017 1:36 PM FINDINGS: Pulmonary arteries: Normal. No pulmonary emboli. Aorta: Unremarkable. No aortic aneurysm. No aortic dissection. Lungs: Dependent bilateral lung base opacities favor atelectasis. Pleural spaces: Unremarkable. No pneumothorax. No pleural effusion. Heart: Unremarkable. No cardiomegaly. No pericardial effusion. Lymph nodes: Unremarkable. No enlarged lymph nodes. Stomach and bowel: Postsurgical changes with chain suture material at the left upper quadrant compatible with Crow-en-Y gastric bypass. Bones/joints: Unremarkable. No acute fracture. Soft tissues: Unremarkable. Other findings: Multiple mediastinal and right hilar calcified nodes compatible with prior granulomatous process. IMPRESSION: No CT angiography evidence of pulmonary embolism.
[2021-10-28 21:54] LABS: HCG Qualitative, Serum Negative (Negative)
[2021-10-28 23:51] LABS: Troponin I < 0.01 ng/ml (0.00-0.034)
--- NOTE | 2021-10-29 00:06 | PC.NURSE ---
Dr. Sandhu s/w Dr. To
[2021-10-29 00:08] VITALS: BP 110/62; PULSE 58; RESP 17; TEMP 36.8; O2SAT 99
== END 2021-10-29 00:17 | disposition home or self-care (01) ==
PROVIDERS: Emergency Provider Emergency Medicine; PCP Nurse Practitioner Family
DX: R07.2 Precordial pain (principal); F41.8 Other specified anxiety disorders; J45.909 Unspecified asthma, uncomplicated; Z20.822 Contact with and (suspected) exposure to COVID-19
CPT/HCPCS: 71046; 71275; 80053; 84145; 84484; 84703; 85025; 85651; 86140; 93005; 96365; 96375; 99283; C9803; J2405; Q9967; U0003; U0005

== ENCOUNTER → 2021-11-07 07:34 | Outpatient (CLI) | payer OTHER, SELFPAY ==
--- NOTE | 2021-11-07 07:34 | NM_ITS ---
APPROVED REPORT Exam: Nuclear Stress Test Indication: Chest pain, SOB, Fatigue, Family history Patient Location: Outpatient Stress Tech: Kelly Shepard [place] Tech:Caity Brandon, ARRT, RT (R)(N) Ht: 5 ft 9 in Wt: 220 lbs Bra Size: 32DD HR: 69 bpm BP: 126/82 mmHg BSA: 2.15 m2 BMI: 32.4 History: Chest pain, SOB, Fatigue, Family history Procedure: Patient exercised on Rajat protocol 8:21 minutes and sec, resting heart rate 69 bpm, resting blood pressure 126/82 mmHg, with exercise maximum heart rate achived was 160 bpm which is 89 % of the maximum predicted heart rate and blood pressure was 154/77 mmHg. Test was stopped due to Chest pain and SOB. Patient has good exercise capacity, achieved 10.1 METs of workload on treadmill, the blood pressure response to exercise was Adequate. Electrocardiogram Resting electrocardiogram shows sinus rhythm, with exercise there is less than 1.[address] segment depression noted from the baseline EKG. The EKG portion of the exercise Myoview is negative for ischemia. Cardiac Stress and Resting SPECT Images: Cardiac Stress and Resting SPECT images were obtained using technetium 99m Myoview 32.7 mCi stress and 10.32 mCi at rest. Gated SPECT for analysis of segmental wall motion and calculation of ejection fraction also done. Cardiac stress and rest SPECT images show uniform myocardial activity without segmental perfusion abnormality, computer derived ejection fraction is 53% with no regional wall motion abnormality, right ventricle is normal size and contractility. Conclusion: 1. The EKG portion of the exercise Myoview is negative for ischemia, patient has good exercise capacity achieved 10.1 METs of workload on treadmill, the blood pressure response to exercise was adequate, there was no exercise-induced chest discomfort. 2. No scintigraphic evidence of reversible ischemia seen, computer derived ejection fraction is 53% with no regional wall motion abnormality, right ventricle is normal size and contractility. 3. Normal exercise Myoview study. Electronically signed by : Travon Navas MD 11/07/2021 21:34:35
--- NOTE | 2021-11-07 08:51 | CA_ITS ---
APPROVED REPORT EXAM: Comprehensive 2D, Doppler, and color-flow Echocardiogram [employer] Math Tutor: Lori Dumont RVT Ht: 5 ft 9 in Wt: 224lbs BSA: 2.17 BP: 140/75 mmHg Indications: CP,ABN EKG,PALPS,FATIGUE,HTN,EDEMA,HLD,HX GASTRIC SLEEVE-NEEDS REVISION 2D Dimensions LVOT 2.28 cm (M/F) 1.5-2.5 LA Volume 54.30 mL LA Volume Index 25.13 mL/m2 (M/F) 16-34 M-Mode Dimensions LA Diam 4.06 cm (1.9-4.0) LVDd 5.31 cm (3.5-5.7) Ao Diam 2.83 cm (2.0-3.7) LVDs 3.78 cm (3.5-5.7) IVSd 0.84 cm (0.6-1.1) PWd 0.60 cm (0.6-1.1) EF (Teich) 55.00% FS 28.80% EDV (Teich) 135.90 mL TAPSE 2.48 (<1.7) ESV (Teich) 61.20 mL LV Diastology E Decel Time 240.00 (160-240 msec) E/A Ratio 1.4 MED E' 8.40 (< 7 cm/sec) E'/MED E' Ratio 10.82 (>14) LAT E' 13.90 (<10 cm/sec) E/LAT E' Ratio 6.54 (>14) Mitral Valve MV E Max Roderick. 91.00 (40-130 cm/s) MV A Velocity 65.00 (40-130 cm/s) E/A Ratio 1.40 MV Decel. Time 240.00 (160-240 ms) MV PHT 70.00 ms Pulmonary Valve PV Peak Velocity 68.00 (50-150 cm/s) Tricuspid Valve TR P. Velocity 254.00 cm/s RAP Estimate 10.00 mmHg RVSP 35.70 mmHg Left Ventricle Left atrium is normal size, left ventricle is normal size, there is no concentric left ventricular hypertrophy, visually estimated ejection fraction 55% with no regional wall motion abnormality, grade 1 diastolic dysfunction seen without tissue Doppler evidence of raise left atrial pressure. Right Ventricle Right atrium and right ventricle are normal size and contractility. Aortic Valve Aortic valve is minimally thickened and fibrosed, there is no aortic stenosis or aortic insufficiency. Mitral Valve Mitral valve grossly normal, there is trace mitral regurgitation. Tricuspid Valve Tricuspid valve grossly normal, there is trace tricuspid regurgitation, tricuspid regurgitation jet velocity is inadequate for calculation of the right ventricular systolic pressure. Pulmonic Valve Pulmonic valve is poorly visualized. Great Vessels Aortic root is normal size. Inferior vena cava is mildly dilated with normal inspiratory collapse. Pericardium No significant pericardial effusion noted. Conclusion 1. Normal left ventricular size, preserved left ventricular systolic function, visually estimated ejection fraction 55% with no regional wall motion abnormality, diastolic parameters are within normal range. 2. Trace mitral and tricuspid regurgitation. 3. No significant pericardial effusion noted. 4. Inferior vena cava is mildly dilated with normal inspiratory collapse. Electronically signed by : Travon Navas MD 11/07/2021 20:51:38
--- NOTE | 2021-11-07 09:04 | HMH.ITSHM ---
Current Home Medications as stated by this patient Magda Boyd or special service representative. []SUMATRIPTAN MONTELUKAST VITAMIN B12 VITAMIN D3 BISOPROLOL OMEPRAZOLE LEVOTHYROXINE ISOSORBIDE BREO FLONASE CETIRIZINE ASA
--- NOTE | 2021-11-07 10:24 | CA_ITS ---
APPROVED REPORT Exam: Exercise Treadmill Technologist: Kelly Shepard, Ht: 5 ft 9 in Wt: 224 lbs BSA: 2.17 m2 HR: 69 bpm BP: 126/82 mmHg Medical History Medications: Omeprazole,,,,, Levothyroxine,,,,, Aspirin,,,,, BisOPROLOL,,,,, FluTICASONE,,,,, Imdur,,,,, Sumatriptan,,,,, CetIRIZINE,,,,, MonteKULAST,,,,, Vitamin D3, B12,,,,, Stress Test Details Test: Rajat HR Resting HR: 79 bpm Max Heart Rate (APMHR): 180.014559 bpm Max HR Achieved: 160 bpm Target HR (85% APMHR): 153.150019 bpm % of APMHR: 88.89 Recovery HR: 83 bpm BP Resting BP: 135/78 mmHg Max BP: 154/77 mmHg Recovery BP: 137.0/69.0 mmHg ECG Resting ECG: Sinus Rhythm Clinical Exercise duration: 08:21 min Highest Stage Achieved: Exercise capacity: 10.1 METs Stress ECG Conclusion Rajat Protocol completed Max HR: 160 bpm % of PM: 89% Max BP: 154/77 METs: 10.1 Test stopped due to: CP and shortnes of breath. Symptoms: (+) CP (+) SOB during peak exercise. Resolved in Recovery. Arrhythmias/Ectopy: No ectopy. ST-T Changes: less than 1.[address] Depression. Conclusion: Images to follow. Test Summary REST . . . . . . . Sitting REST . . . . . . . Standing REST 13:36 0.0 0.0 79 . 135/ 78 . . Stage 1 01:00 10.0 1.7 97 . . . . Stage 1 02:00 10.0 1.7 110 . . . . Stage 1 03:00 10.0 1.7 114 . 138/ 90 . . Stage 2 01:00 12.0 2.5 125 . . . . Stage 2 02:00 12.0 2.5 135 . . . . Stage 2 03:00 12.0 2.5 142 . 152/ 96 . . Stage 3 01:00 14.0 3.4 151 . . . . Stage 3 . . . . . . . Cardiolite injected Stage 3 02:00 14.0 3.4 159 . . . . Stage 3 02:21 14.0 3.4 160 . . . Stop exercise at 08:21 RECOVERY 01:00 0.0 0.0 128 . . . . RECOVERY 02:00 0.0 0.0 105 . 154/ 77 . . RECOVERY 03:00 0.0 0.0 89 . 152/ 66 . . RECOVERY 04:00 0.0 0.0 77 . 152/ 66 . . RECOVERY 04:34 0.0 0.0 82 . 137/ 69 . . Electronically signed by : Travon Navas MD 11/07/2021 21:27:39
== END ==
PROVIDERS: PCP Nurse Practitioner Family; Visit Provider Physician Assistant
DX: R07.2 Precordial pain (principal); R94.31 Abnormal electrocardiogram [ECG] [EKG]; I10 Essential (primary) hypertension; E78.2 Mixed hyperlipidemia; E66.01 Morbid (severe) obesity due to excess calories; Z68.33 Body mass index [BMI] 33.0-33.9, adult
CPT/HCPCS: 78452; 93017; 93306; A9502

== ENCOUNTER 2021-12-17 13:54 | Emergency (ER) | payer OTHER, SELFPAY ==
--- NOTE | 2021-12-17 14:36 | HMH.EDUTC ---
[facility] [place] Clinical Impression: Viral syndrome Pharyngitis Qualifiers: Pharyngitis/tonsillitis etiology: unspecified etiology Qualified Code(s): J02.9 - Acute pharyngitis, unspecified Disposition: Home, Self-Care Condition on Discharge: Good Instructions: DI for Pharyngitis/Tonsillopharyngitis -- Adult, DI for COVID-19 (Suspected or Confirmed ), Preventing the Spread of Coronavirus Discharge Instructions Additional Instructions: Drink plenty of fluids. Take tylenol or ibuprofen for pain or fever. Take the medications as directed. Follow up with your regular doctor. GO TO THE ER FOR ANY WORSENING SYMPTOMS Quarantine until you know the results of your covid-19 test. Notify your school or workplace of your results and follow their instructions regarding return to work/school. Prescriptions: Benzonatate [Benzonatate 100mg cap] 100 mg PO TIDP PRN #30 cap PRN Reason: Cough Transmission Status: Received by [facility] guaiFENesin [Mucinex 600mg tablet] 1 - 2 tab PO BIDP PRN #30 tab PRN Reason: Congestion Transmission Status: Received by [facility] Azithromycin [Z-Venkata 250mg Tab*] 250 mg PO UD DOSE PK #6 tab Transmission Status: Received by [facility] Referrals: Lauren Kwong APRN [Primary Care Provider] - Time of Disposition: 14:57 Medical Decision Making - Medical Records Medical records reviewed: No: I reviewed the patient's medical records. - Carlo Inquiry Pt receiving controlled substance: No Vital Signs: 12/17/21 14:45 12/17/21 15:00 Temperature 98.1 F 98.1 F Temperature Source Oral Pulse Rate 65 Pulse Rate [Left] 65 Respiratory Rate 18 18 Blood Pressure 155/93 H Blood Pressure [Right Arm] 155/93 H Blood Pressure Mean [Right Arm] 113 02 Sat by Pulse Oximetry 95 - Lab Data Lab results reviewed: Yes: I reviewed the patient's lab results. Lab Results 12/17/21 14:35: Strep Scn Rapid Clinic Negative Orders (Tests/Meds): ORDERS Category Date Time Status Strep Screen Confirmation Stat Micro 12/17/21 14:35 Received [facility] [place] - General Stated complaint: sore throat,stuffy,ear pain Time Seen by Provider: 12/17/21 14:36 - History of Present Illness Provider Complaint: She states that for the past 4 days she has had sinus congestion, sore throat, ear pain, and chills. She denies signicant chest congestion or shortness of breath. - Related Data Home Medications Medication Instructions Recorded Confirmed Fluticasone Propionate [Flonase 2 spr NS DAILY 08/19/18 10/31/21 50mcg nasal spray 16gm] cholecalciferol (vitamin D3) 1,250 50,000 unit PO QWEEK 09/10/18 10/31/21 mcg (50,000 unit) capsule cyanocobalamin (vitamin B-12) 3,000 mcg PO DAILY 01/01/19 10/31/21 3,000 mcg capsule Cetirizine HCl See Rx Instructions .ROUTE .COMPLEX 10/28/21 10/31/21 Fluticasone/Vilanterol [Breo See Rx Instructions .ROUTE .COMPLEX 10/28/21 10/31/21 Ellipta 100-25 Mcg INH] Levothyroxine Sodium [Synthroid 175 mcg PO DAILY 10/28/21 10/31/21 175mcg (0.175mg) tablet] Omeprazole [Omeprazole 20mg 20 mg PO DAILY 10/28/21 10/31/21 Capsule] bisoproloL fumarate [Bisoprolol See Rx Instructions .ROUTE .COMPLEX 10/28/21 10/31/21 Fumarate] Previous Rx's Medication Instructions Recorded montelukast 10 mg tablet 10 mg PO QHS #90 tab 03/31/21 sumatriptan succinate 100 mg tablet 100 mg PO DAILY PRN #9 tab 03/31/21 Aspirin [Aspirin 81mg EC Tab] 81 mg PO DAILY #30 tab 10/29/21 Isosorbide Mononitrate [Imdur 30mg 30 mg PO DAILY #30 tab 10/29/21 ER tablet] Azithromycin [Z-Venkata 250mg Tab*] 250 mg PO UD DOSE PK #6 tab 12/17/21 Benzonatate [Benzonatate 100mg 100 mg PO TIDP PRN #30 cap 12/17/21 cap] guaiFENesin [Mucinex 600mg tablet] 1 - 2 tab PO BIDP PRN #30 tab 12/17/21 Allergies Allergy/AdvReac Type Severity Reaction Status Date / Time No Known Allergies Allergy Verified 10/31/21 09:17 [facility] Hist
[2021-12-17 14:45] VITALS: BP 155/93; PULSE 65; RESP 18; TEMP 36.7; O2SAT 95; BMI 31.3
[2021-12-17 14:47] LABS: UTC Strep Screen (Rapid) Negative (Negative)
[2021-12-17 15:00] VITALS: BP 155/93; PULSE 65; RESP 18; TEMP 36.7
== END 2021-12-17 15:10 | disposition home or self-care (01) ==
PROVIDERS: Emergency Provider Nurse Practitioner Family; PCP Nurse Practitioner Family
DX: U07.1 COVID-19 (principal); B34.9 Viral infection, unspecified; F41.8 Other specified anxiety disorders; E03.9 Hypothyroidism, unspecified
CPT/HCPCS: 87880; 99203; C9803; G0463; U0003; U0005

== ENCOUNTER → 2021-12-24 14:45 | Outpatient (CLI) | payer OTHER, SELFPAY | PROVIDERS: PCP Nurse Practitioner Family; Visit Provider Nurse Practitioner Family | DX: U07.1 COVID-19 (principal) | CPT/HCPCS: C9803; U0003; U0005 ==

== ENCOUNTER 2022-06-05 14:42 | Emergency (ER) | payer OTHER, SELFPAY ==
[2022-06-05 15:40] VITALS: BP 141/86; PULSE 76; RESP 19; TEMP 36.7; O2SAT 97; BMI 28.0
--- NOTE | 2022-06-05 15:59 | HMH.EDUTC ---
[facility] Dis[facility] Clinical Impression: Sinusitis Qualifiers: Sinusitis location: unspecified location Chronicity: unspecified Qualified Code(s): J32.9 - Chronic sinusitis, unspecified Disposition: Home, Self-Care Condition on Discharge: Good Instructions: Sinusitis, Middle Ear Infection, DI for Sinusitis Additional Instructions: *Monitor Temp, Over the counter Motrin or Tylenol as directed/as needed Tylenol every 4 hours and Motrin every 6 hours (as long as your family doctor has told you that you can take it) for fever or pain. and straight to ER if unable to lower temp less than 101.0 after medication given *Warm salt water gargles may help to soothe the throat *Throat Lozenges *Warm fluids like tea with honey may help to soothe the throat *Sleep elevated *Humidifier/Vaporizer Take medication as prescribed Return if needed Make sure to keep appointment with your Family Doctor for further medication refills Follow up IMMEDIATELY for new or worsening symptoms or no Noticeable improvement over the next 48-72 hours. 911 for difficulty breathing or swallowing Prescriptions: Amoxicillin/Potassium Clav [Amox-Clav 875-125 mg Tablet] 1 tab PO BID #20 tab Transmission Status[facility] Bisoprolol Fumarate [Bisoprolol 5mg Tablet] 5 mg PO DAILY 14 Days #14 tab Transmission Status: Pending to [facility] methylPREDNISolone [Medrol 4mg tab] 4 mg PO DIRECTED #21 tab Transmission Status: Pending to [facility] Referrals: Lauren Kwong APRN [Primary Care Provider] - As needed Time of Disposition: 16:10 Medical Decision Making - Carlo Inquiry Pt receiving controlled substance: No Carlo was queried for this patient: No Vital Signs: 06/05/22 15:40 Temperature 98.0 F Temperature Source Oral Pulse Rate [Right Brachial] 76 Respiratory Rate 19 Blood Pressure [Right Arm] 141/86 H Blood Pressure Mean [Right Arm] 104 Blood Pressure Source [Right Arm] Automatic Cuff Blood Pressure Position [Right Arm] Sitting 02 Sat by Pulse Oximetry 97 Oxygen Delivery Method Room Air - Lab Data Lab Results 06/05/22 15:28: Strep Scn Rapid Clinic Negative Orders (Tests/Meds): ORDERS Category Date Time Status Strep Screen Confirmation Stat Micro 06/05/22 15:28 Received Medical Decision Narrative: discussed with patient and will prescribed 2 weeks of medication (Bisoprolol Fumarate) until her appointment with her PCP to get more [facility] HPI - General Stated complaint: sinus congestion, runny nose, sore throat Time Seen by Provider: 06/05/22 15:59 Mode of Arrival: Ambulatory Source of Information: Patient Limitations: No Limitations Description of Symptoms (Recalled from Triage Doc. by RN): PATIENT C/O HEADACHE, SINUS PRESSURE, AND SORE THROAT X 2 WEEKS HEENT Symptoms (Recalled from RN notes): Yes Resp Symptoms (Recalled from RN notes): No Skin Symptoms (Recalled from RN notes): No MS Symptoms (Recalled from RN notes): No Functional Status (Recalled from RN notes): WNL - History of Present Illness Provider Complaint: Patient states that she has been having sinus pain and pressure along with pain in her left ear for about 2 weeks that has continued to get worse States that today it was worse behind her left eye so she came in States that also she was wanting to see if she could get enough of her regular medications prescribed until she can get in to see her PCP in 2 weeks States that she is out of her medication and worried about going that long without it - Related Data Home Medications Medication Instructions Recorded Confirmed Fluticasone Propionate [Flonase 2 spr NS DAILY 08/19/18 10/31/21 50mcg nasal spray 16gm] cholecalciferol (vitamin D3) 1,250 50,000 unit PO QWEEK 09/10/18 10/31/21 mcg (50,000 unit) capsule cyanocobalamin (vitamin B-12) 3,000 mcg PO DAILY 01/01/19 10/31/21 3,000 mcg capsule Fluticasone/Vilanterol [Breo See Rx Instructions .ROUTE .C
[2022-06-05 16:02] LABS: UTC Strep Screen (Rapid) Negative (Negative)
[2022-06-05 16:11] VITALS: BP 141/86; PULSE 76; RESP 19; TEMP 36.7; O2SAT 97
== END 2022-06-05 16:15 | disposition home or self-care (01) ==
PROVIDERS: Emergency Provider Nurse Practitioner; PCP Nurse Practitioner Family
DX: J32.9 Chronic sinusitis, unspecified (principal)
CPT/HCPCS: 87880; 99212; G0463

== ENCOUNTER 2022-06-30 09:30 | Day surgery (SDC) | payer OTHER, SELFPAY ==
[2022-06-30 09:22] VITALS: BP 128/73; PULSE 83; RESP 18; TEMP 36.6; O2SAT 99; BMI 30.1
[2022-06-30 09:47] VITALS: BP 134/75; PULSE 65; RESP 18; O2SAT 99
--- NOTE | 2022-06-30 09:49 | HMH.PMPROC ---
- Procedure Date: 06/30/22 Time: 09:45 Anesthesiologist:: Jorge Lebron CRNA Complications:: None Pre-procedure Diagnosis:: Shingles Post-procedure Diagnosis:: Same Indications for Procedure:: Patient is a pleasant 42-year-old female that presents today as a new patient. She has a consult from oswaldo hernandez. She presents today with shingles on her right lower abdomen and right mid back. She stated that this first presented on last as a burning, itching sensation on her right lower abdomen. She stated that she initially thought that she had poison roxanne however blisters did begin to present. She went and saw her primary care provider on Sunday and was prescribed acyclovir and gabapentin. Today she rates her pain a 6 out of 10. She states it is all on her right lower abdomen but has began to start on her mid back. Patient states she has not used any [id number] medications or topicals. Patient states this is the first occurrence of shingles that she has ever had. Procedure Details:: Informed consent was obtained and the risk and benefits of the procedure were explained to the patient. Patient was taken to the procedure room. Her right lower abdomen and right mid back were prepped with ChloraPrep as a cleansing solution. Trigger points were palpated and marked. Each of these trigger points were injected with bupivacaine 0.25% 3 mL and Depo-Medrol 10 mg in a fanning fashion. A total of 80 mg of Depo-Medrol was used for bilateral trigger points of her right lower abdomen and right mid back. Bandages were placed over the injection sites. Patient tolerated the procedure well with no complications. Plan and Disposition:: Patient will follow up with her primary care doctor next week. She has been instructed to contact us Sunday if the gabapentin does not appear to be helping. We did discuss with her regarding starting her on Lyrica at that point. Patient has been instructed to contact the clinic with any concerns before the next appointment. Dr. Rosa has reviewed this note and agrees with this plan of care. This note was dictated using voice recognition software and may contain errors or omissions.
== END 2022-06-30 09:48 | disposition home or self-care (01) ==
LOC: SC.PAINP 09:31
PROVIDERS: PCP Nurse Practitioner Family; Visit Provider Nurse Anesthetist, Certified Registered
DX: B02.9 Zoster without complications (principal)
CPT/HCPCS: 20552; J1040

== ENCOUNTER 2022-07-07 07:51 | Day surgery (SDC) | payer OTHER, SELFPAY ==
[2022-07-07 08:09] VITALS: BP 137/75; PULSE 72; RESP 20; TEMP 36.6; O2SAT 100; BMI 29.8
[2022-07-07 08:52] VITALS: BP 138/71; PULSE 64; RESP 20; O2SAT 99
--- NOTE | 2022-07-07 09:42 | HMH.PMPROC ---
- Procedure Date: 07/07/22 Time: 08:40 Anesthesiologist:: Jorge Lebron CRNA Complications:: None Pre-procedure Diagnosis:: Postherpetic neuralgia Post-procedure Diagnosis:: Same Indications for Procedure:: This patient is a pleasant 42-year-old with right side and right lumbar area shingle lesions. She received peripheral nerve block around the lesions at both locations 1 week ago. She reports significant improvement since that injection. We will repeat the injections today. The lesions appear to be healing nicely. However, patient still complaining of pain in the areas. Procedure Details:: Details of the procedure were explained to the patient. The patient was placed in the sitting position on the procedure table. The area over both shingles lesions was cleaned using chlorhexidine as a cleansing solution. Each area was infiltrated in a fanning fashion using a 25-gauge needle and a 10 cc solution of 5 cc of 0.25% Marcaine +5 cc of 1% lidocaine and 40 mg of Depo-Medrol. Patient tolerated the procedure without difficulty. There were no complications. Plan and Disposition:: Patient was discharged without incident.
== END 2022-07-07 08:53 | disposition home or self-care (01) ==
LOC: SC.PAINP 07:53
PROVIDERS: PCP Nurse Practitioner Family; Visit Provider Nurse Anesthetist, Certified Registered
DX: B02.29 Other postherpetic nervous system involvement (principal)
CPT/HCPCS: 64450; J1040

== ENCOUNTER → 2022-07-25 13:20 | Outpatient (CLI) | payer OTHER, SELFPAY ==
--- NOTE | 2022-07-25 13:30 | XR_ITS ---
FINAL REPORT CLINICAL HISTORY: RT FOOT CYST, lateral side FINDINGS: Right foot Three views were obtained. There is no acute fracture or dislocation. The joint spaces appear normal. There is chronic calcification adjacent to the proximal 5th metatarsal and lateral to the proximal 5th metatarsal. No acute soft tissue abnormality is identified. IMPRESSION: No acute process. Reviewed, Interpreted and Dictated by Gabo Dee III, MD Transcribed by Larisa Menard Authenticated and [facility]
== END ==
PROVIDERS: PCP Nurse Practitioner Family; Visit Provider Nurse Practitioner Family
DX: M85.671 Other cyst of bone, right ankle and foot (principal)
CPT/HCPCS: 73630

== ENCOUNTER 2022-11-14 17:53 | Emergency (ER) | payer OTHER, SELFPAY ==
--- NOTE | 2022-11-14 18:38 | EXP.UTC ---
Discharge Plan Disposition Patient Disposition: Home, Self-Care Condition: Good Prescriptions Prescriptions: New azithromycin [Zithromax] 250 mg tablet 250 mg PO UD DOSE PK Qty: 6 0RF Rx Instructions: Take two (2) tablets today, then one (1) tablet days #2 thru #5 benzonatate [benzonatate] 100 mg capsule 100 mg PO TIDP PRN (Reason: Cough) Qty: 30 0RF methylprednisolone 4 mg Tablets,Dose Pack 4 mg PO DIRECTED Qty: 21 0RF No Action montelukast 10 mg tablet 10 mg PO QHS Qty: 90 3RF pregabalin 75 MG capsule 75 mg PO BID omeprazole 20 MG capsule,delayed release(DR/EC) 20 mg PO DAILY levothyroxine 175 MCG tablet 175 mcg PO DAILY Rx Instructions: Take 1 tablet by mouth once daily acyclovir 800 MG tablet 800 mg PO 5XDAY bisoprolol fumarate 5 MG tablet 10 mg PO DAILY Rx Instructions: Take 1 tablet by mouth once daily cetirizine 10 MG tablet See Rx Instructions .Route .COMPLEX Rx Instructions: Take 1 tablet by mouth once daily Referrals Follow up/Referrals: Lauren Kwong APRN [Primary Care Provider] - See instructions Activity Restrictions/Add. Instructions Additional Instructions/Restrictions: Drink plenty of fluids. Take tylenol or ibuprofen for pain or fever. Take the medications as directed. Follow up with your regular doctor. GO TO THE ER FOR ANY WORSENING SYMPTOMS Clinical Impressions Clinical Impression: Pharyngitis, Acute viral syndrome Instructions Patient Instructions: DI for Pharyngitis/Tonsillopharyngitis -- Adult, DI for Viral Syndrome Discharge ED Provider: Brady Cornell [facility] General Stated complaint: Sore throat,Cough Time Seen by Provider: 11/14/22 18:38 History of Present Illness Provider Complaint: she states that for the past 3 days she has had fever, chills, body aches, sore throat and a cough. Related Data Home Medications Medication Instructions Recorded Confirmed omeprazole 20 mg capsule,delayed 20 mg PO DAILY GERD 10/28/21 07/07/22 release acyclovir 800 mg tablet 800 mg PO 5XDAY . 06/30/22 07/07/22 bisoprolol fumarate 5 mg tablet 10 mg PO DAILY Blood pressure 06/30/22 07/07/22 cetirizine 10 mg tablet See Rx Instructions .Route 06/30/22 07/07/22 .COMPLEX Allergies levothyroxine 175 mcg tablet 175 mcg PO DAILY Thyroid 06/30/22 07/07/22 pregabalin 75 mg capsule 75 mg PO BID . 07/07/22 07/07/22 Previous Rx's Medication Instructions Recorded montelukast 10 mg tablet 10 mg PO QHS allergy symptoms #90 03/31/21 tabs azithromycin 250 mg tablet 250 mg PO UD DOSE PK #6 tabs 11/14/22 (Zithromax) benzonatate 100 mg capsule 100 mg PO TIDP PRN Cough #30 caps 11/14/22 methylprednisolone 4 mg tablets in 4 mg PO DIRECTED #21 tabs 11/14/22 a dose pack Allergies Allergy/AdvReac Type Severity Reaction Status Date / Time No Known Allergies Allergy Verified 11/14/22 19:14 [facility] Disclaimer: The information contained in this section may have been updated after the patient was seen, as this information can be updated by other users. Medical History (Updated 11/14/22 @ 19:53 by Brady Cornell APRN) Anxiety Asthma Depression Obesity Palpitations Social History Smoking Status: Never smoker alcohol intake: never substance use type: denies use and crack/cocaine current occupational status: employed Travel in the last 8 weeks: None household members: other housing: house number of children: 2 caffeine: Yes ROS Obtained: Yes All systems reviewed & no additional complaints except as documented Constitutional Constitutional: Reports chills and Reports fever(s) Eyes Eyes: Denies eye discharge ENT Ears, Nose, Mouth, and Throat: Reports as per HPI Cardiovascular Cardiovascular: Denies chest pain Respiratory Respiratory: Denies chest congestion and Reports cough Gastrointestinal
[2022-11-14 19:09] LABS: UTC Strep Screen (Rapid) Negative (Negative)
[2022-11-14 19:11] VITALS: BP 115/64; PULSE 86; RESP 19; TEMP 36.6; O2SAT 100; BMI 33.3
[2022-11-14 19:39] LABS: UTC Influenza A Antigen Negative (Negative)
[2022-11-14 19:40] LABS: UTC Influenza B Antigen Negative (Negative)
[2022-11-14 20:15] LABS: Adenovirus,PCR Not Detected (NotDetected); Bordetella Pertussis Not Detected (NotDetected); Chlamydophila Pneumoniae, PCR Not Detected (NotDetected); Coronavirus 229E Not Detected (NotDetected); Coronavirus NL63 Not Detected (NotDetected); Coronavirus OC43 Not Detected (NotDetected); Coronovirus HKU1,PCR Not Detected (NotDetected); Human Metapneumovirus Not Detected (NotDetected); Influenza A, PCR Not Detected (NotDetected); Influenza AH1, 2009 Not Detected (NotDetected); Influenza AH1, PCR Not Detected (NotDetected); Influenza AH3,PCR Not Detected (NotDetected); Influenza B, PCR Not Detected (NotDetected); Mycoplasma Pneumoniae, PCR Not Detected (NotDetected); Parainfluenza 1, PCR Not Detected (NotDetected); Parainfluenza 2, PCR Not Detected (NotDetected); Parainfluenza 3, PCR Not Detected (NotDetected); Parainfluenza 4, PCR Not Detected (NotDetected); Respiratory Syncytial Virus Not Detected (NotDetected); Rhinovirus/Enterovirus Not Detected (NotDetected)
[2022-11-14 20:22] VITALS: BP 115/64; PULSE 86; RESP 19; TEMP 36.6
[2022-11-15 10:10] LABS: Coronavirus 19, PCR Detected (NotDetected)
== END 2022-11-14 20:23 | disposition home or self-care (01) ==
PROVIDERS: Emergency Provider Nurse Practitioner Family; PCP Nurse Practitioner Family
DX: J02.9 Acute pharyngitis, unspecified (principal); B34.9 Viral infection, unspecified
CPT/HCPCS: 87581; 87632; 87798; 87804; 87880; 99212; C9803; G0463; U0003; U0005

== ENCOUNTER → 2023-03-30 17:57 | Outpatient (CLI) | payer OTHER, SELFPAY | PROVIDERS: PCP Nurse Practitioner Family; Visit Provider Specialist | DX: G47.30 Sleep apnea, unspecified (principal); R06.83 Snoring; E66.01 Morbid (severe) obesity due to excess calories; Z68.43 Body mass index [BMI] 50.0-59.9, adult | CPT/HCPCS: G0399 ==

== ENCOUNTER 2023-04-16 12:39 | Emergency (ER) | payer OTHER, SELFPAY ==
[2023-04-16 13:43] VITALS: BP 140/70; PULSE 54; RESP 16; TEMP 36.8; O2SAT 100; BMI 34.0
--- NOTE | 2023-04-16 13:44 | EXP.UTC ---
Discharge Plan Disposition Patient Disposition: Home, Self-Care Condition: Good Prescriptions Prescriptions: New azithromycin [Zithromax] 250 mg tablet 250 mg PO UD DOSE PK Qty: 6 0RF Rx Instructions: Take two (2) tablets today, then one (1) tablet days #2 thru #5 benzonatate [benzonatate] 100 mg capsule 100 mg PO TIDP PRN (Reason: Cough) Qty: 30 0RF methylprednisolone 4 mg Tablets,Dose Pack 4 mg PO DIRECTED Qty: 21 0RF No Action montelukast 10 mg tablet 10 mg PO QHS Qty: 90 3RF multivitamin Tablet 1 tab PO DAILY melatonin 5 mg capsule See Rx Instructions .ROUTE .COMPLEX Rx Instructions: 5mg po prn; omeprazole 20 MG capsule,delayed release(DR/EC) 20 mg PO DAILY levothyroxine 175 MCG tablet 175 mcg PO DAILY Rx Instructions: Take 1 tablet by mouth once daily bisoprolol fumarate 5 MG tablet 10 mg PO DAILY Rx Instructions: Take 1 tablet by mouth once daily cetirizine 10 MG tablet See Rx Instructions .Route .COMPLEX Rx Instructions: Take 1 tablet by mouth once daily Referrals Follow up/Referrals: Lauren Kwong APRN [Primary Care Provider] - See instructions Activity Restrictions/Add. Instructions Additional Instructions/Restrictions: Drink plenty of fluids. Take tylenol or ibuprofen for pain or fever. Take the medications as directed. Follow up with your regular doctor. GO TO THE ER FOR ANY WORSENING SYMPTOMS Clinical Impressions Clinical Impression: Sinusitis, Otitis media Instructions Patient Instructions: Sinusitis, DI for Sinusitis Discharge ED Provider: Brady Cornell [facility] General Stated complaint: Rt ear pain, nausea, sinus pressure Time Seen by Provider: 04/16/23 13:44 History of Present Illness Provider Complaint: She states that for the past 2 days she has had Rt ear pain, nausea, sinus pressure Related Data Home Medications Medication Instructions Recorded Confirmed omeprazole 20 mg capsule,delayed 20 mg PO DAILY GERD 10/28/21 04/16/23 release bisoprolol fumarate 5 mg tablet 10 mg PO DAILY Blood pressure 06/30/22 04/16/23 cetirizine 10 mg tablet See Rx Instructions .Route 06/30/22 04/16/23 .COMPLEX Allergies levothyroxine 175 mcg tablet 175 mcg PO DAILY Thyroid 06/30/22 04/16/23 melatonin 5 mg capsule See Rx Instructions .Route 03/15/23 04/16/23 .COMPLEX sleep multivitamin 1 tab PO DAILY Supplement 03/15/23 04/16/23 Previous Rx's Medication Instructions Recorded montelukast 10 mg tablet 10 mg PO QHS allergy symptoms #90 03/31/21 tabs azithromycin 250 mg tablet 250 mg PO UD DOSE PK #6 tabs 04/16/23 (Zithromax) benzonatate 100 mg capsule 100 mg PO TIDP PRN Cough #30 caps 04/16/23 methylprednisolone 4 mg tablets in 4 mg PO DIRECTED #21 tabs 04/16/23 a dose pack Allergies Allergy/AdvReac Type Severity Reaction Status Date / Time No Known Allergies Allergy Verified 04/16/23 13:41 [facility] Disclaimer: The information contained in this section may have been updated after the patient was seen, as this information can be updated by other users. Medical History (Updated 04/16/23 @ 13:59 by Brady Cornell APRN) Anxiety Asthma Depression History of gastroesophageal reflux (GERD) Hypothyroid Migraine Obesity Palpitations Surgical History History of repair of ACL History of sleeve gastrectomy Hx of section Hx of gastric bypass Family History (Updated 04/16/23 @ 13:41 by Michelle Biggs RN) Other No significant family history Social History (Updated 04/16/23 @ 13:41 by Michelle Biggs RN) Smoking Status: Never smoker alcohol intake: never substance use type: denies use and crack/cocaine current occupational status: employed Travel in the last 8 weeks: None household members: other housing: house number of children: 2 caffeine: Yes ROS O
[2023-04-16 13:49] LABS: UTC Strep Screen (Rapid) Negative (Negative)
[2023-04-16 14:01] VITALS: BP 140/70; PULSE 54; RESP 16; TEMP 36.8; O2SAT 100
== END 2023-04-16 14:02 | disposition home or self-care (01) ==
PROVIDERS: Emergency Provider Nurse Practitioner Family; PCP Nurse Practitioner Family
DX: J01.90 Acute sinusitis, unspecified (principal); H66.93 Otitis media, unspecified, bilateral; R11.0 Nausea; J45.909 Unspecified asthma, uncomplicated; E03.9 Hypothyroidism, unspecified; F41.9 Anxiety disorder, unspecified; F32.9 Major depressive disorder, single episode, unspecified
CPT/HCPCS: 87880; 99212; 99214; G0463

== ENCOUNTER → 2023-05-30 13:37 | Outpatient (CLI) | payer OTHER, SELFPAY ==
--- NOTE | 2023-05-30 13:37 | CT_ITS ---
FINAL REPORT TECHNIQUE: Thin section axial CT images of the facial bones and sinuses were obtained without contrast. Coronal reformatted images were also obtained.This study was performed with techniques to keep radiation doses as low as reasonably achievable, (ALARA). Individualized dose reduction techniques using automated exposure control or adjustment of mA and/or kV according to the patient''''s size were employed. CLINICAL HISTORY: sinusitis FINDINGS: There is no evidence of mucosal thickening. No fluid levels are identified. The ostiomeatal units have an unremarkable appearance. The nasal septum is in the midline. No fracture or acute bony abnormality is identified. IMPRESSION: No focal abnormality identified of the sinuses. Reviewed, Interpreted and Dictated by Gabo Dee III, MD Transcribed by Larisa Menard Authenticated and [facility]
== END ==
PROVIDERS: PCP Nurse Practitioner Family; Visit Provider Otolaryngology
DX: E03.9 Hypothyroidism, unspecified (principal); E06.3 Autoimmune thyroiditis; J32.9 Chronic sinusitis, unspecified; J34.2 Deviated nasal septum
CPT/HCPCS: 70486

== ENCOUNTER → 2023-06-07 09:31 | Outpatient (CLI) | payer OTHER, SELFPAY ==
[2023-06-07 10:59] LABS: Thyroid Stimulating Hormone 0.15 uIU/mL (0.465-4.68)
== END ==
PROVIDERS: PCP Nurse Practitioner Family; Visit Provider Otolaryngology
DX: E06.3 Autoimmune thyroiditis (principal); E03.9 Hypothyroidism, unspecified; J32.9 Chronic sinusitis, unspecified; J34.2 Deviated nasal septum
CPT/HCPCS: 36415; 84439; 84443

== ENCOUNTER 2023-07-19 15:34 | Emergency (ER) | payer OTHER, SELFPAY ==
[2023-07-19 15:40] VITALS: BP 132/72; PULSE 74; RESP 20; TEMP 36.7; O2SAT 98; BMI 34.5
--- NOTE | 2023-07-19 15:42 | EXP.UTC ---
Discharge Plan Disposition Patient Disposition: Home, Self-Care Condition: Good Prescriptions Prescriptions: New cyclobenzaprine 10 mg Tablet 10 mg PO BID PRN (Reason: Muscle Spasm) Qty: 20 0RF methylprednisolone 4 mg Tablets,Dose Pack 4 mg PO DIRECTED Qty: 21 0RF No Action montelukast 10 mg tablet 10 mg PO QHS Qty: 90 4RF levothyroxine [Synthroid] 175 mcg tablet 175 mcg PO DAILY Qty: 90 1RF fluticasone propionate [Flonase Allergy Relief] 50 mcg/actuation spray,suspension 1 spray intranasal BID Rx Instructions: administer into each nostril levocetirizine [Xyzal] 5 mg tablet 5 mg PO DAILY omeprazole 20 MG capsule,delayed release(DR/EC) 20 mg PO DAILY bisoprolol fumarate 5 MG tablet 10 mg PO DAILY Rx Instructions: Take 1 tablet by mouth once daily Referrals Follow up/Referrals: Lauren Kwong APRN [Primary Care Provider] - See instructions Activity Restrictions/Add. Instructions Additional Instructions/Restrictions: Go home and rest. It would be best if you rested tomorrow too. No heavy lifting. No twisting. Take the oral medications as directed. The muscle relaxer (cyclobenzaprine--Flexeril) will make you drowsy, so don't drive or operate heavy machinery after taking it. Don't start the oral steroids (medrol dose pack) until tomorrow, since you had the shots in here today. Follow up with your regular doctor. GO TO THE ER FOR ANY WORSENING SYMPTOMS OR CONCERN, ESPECIALLY BOWEL OR BLADDER ISSUES, SADDLE AREA NUMBNESS, FEVER, ETC Clinical Impressions Clinical Impression: Low back pain, Left sided sciatica Stand Alone Forms Stand Alone Forms: Work/School Release Instructions Patient Instructions: Low Back Pain, DI for Low Back Pain, Cyclobenzaprine, Methylprednisolone, Ketorolac, Methylprednisolone Injection Discharge ED Provider: Brady Cornell [facility] General Stated complaint: back LT leg pain Time Seen by Provider: 07/19/23 15:42 History of Present Illness Provider Complaint: She states that she has had low back pain that radiates down her left leg for the past 5 days. She denies any injury or falls. She has had episodes of this before. Related Data Home Medications Medication Instructions Recorded Confirmed omeprazole 20 mg capsule,delayed 20 mg PO DAILY GERD 12/10/21 08/31/23 release bisoprolol fumarate 5 mg tablet 10 mg PO DAILY Hypertension 06/30/22 07/19/23 fluticasone propionate 50 1 spray intranasal BID Allergy 07/19/23 07/19/23 mcg/actuation nasal Symptoms spray,suspension (Flonase Allergy Relief) levocetirizine 5 mg tablet (Xyzal) 5 mg PO DAILY Allergy Symptoms 07/19/23 07/19/23 Previous Rx's Medication Instructions Recorded levothyroxine 175 mcg tablet 175 mcg PO DAILY thyroid #90 tabs 06/07/23 (Synthroid) montelukast 10 mg tablet 10 mg PO QHS allergy symptoms #90 06/07/23 tabs cyclobenzaprine 10 mg tablet 10 mg PO BID PRN Muscle Spasm #20 07/19/23 tabs methylprednisolone 4 mg tablets in 4 mg PO DIRECTED #21 tabs 07/19/23 a dose pack Allergies Allergy/AdvReac Type Severity Reaction Status Date / Time No Known Allergies Allergy Verified 06/07/23 09:07 [facility] Disclaimer: The information contained in this section may have been updated after the patient was seen, as this information can be updated by other users. Medical History (Updated 07/19/23 @ 16:15 by Brady Cornell APRN) Anxiety Asthma Depression Deviated septum Rae's disease History of gastroesophageal reflux (GERD) Hypothyroid Hypothyroidism Migraine Obesity Palpitations Sinusitis Surgical History History of repair of ACL History of sleeve gastrectomy Hx of section Hx of gastric bypass Family History Other No significant family history Social History (Reviewed 05/16
[2023-07-19 16:18] VITALS: BP 132/72; PULSE 74; RESP 20; TEMP 36.7; O2SAT 98
== END 2023-07-19 16:20 | disposition home or self-care (01) ==
PROVIDERS: Emergency Provider Nurse Practitioner Family; PCP Nurse Practitioner Family
DX: M54.42 Lumbago with sciatica, left side (principal); J45.909 Unspecified asthma, uncomplicated; E03.9 Hypothyroidism, unspecified; K21.9 Gastro-esophageal reflux disease without esophagitis; F41.9 Anxiety disorder, unspecified; F32.A Depression, unspecified; E66.9 Obesity, unspecified
CPT/HCPCS: 96372; 99212; 99214; G0463

== ENCOUNTER → 2023-10-15 07:29 | Outpatient (CLI) | payer OTHER, SELFPAY ==
--- NOTE | 2023-10-15 07:39 | XR_ITS ---
FINAL REPORT CLINICAL HISTORY: LBP pain shooting down left leg FINDINGS: LUMBAR SPINE, 3 views FINDINGS: No fracture is identified. Mild diffuse degenerative disc changes are present. Endplate spurring is seen at L5-S1. Levoscoliosis is noted. There is no significant subluxation. IMPRESSION: Mild degenerative changes Authenticated and ERN
== END ==
PROVIDERS: PCP Nurse Practitioner Family; Visit Provider Nurse Practitioner Family
DX: M54.50 Low back pain, unspecified (principal)
CPT/HCPCS: 72100

== ENCOUNTER → 2023-11-07 14:23 | Outpatient (CLI) | payer OTHER, SELFPAY ==
--- NOTE | 2023-11-07 14:27 | MR_ITS ---
FINAL REPORT CLINICAL HISTORY: LEFT SIDED LOW BACK PAIN, LEFT LEG NUMBNESS COMPARISON: None FINDINGS: Multiplanar MR imaging of the lumbar spine was performed without contrast. On the sagittal T2-weighted images, there is abnormal decreased signal at the L4-5 and L5-S1 discs. There is moderate loss of height at L5-S1. The vertebral alignment is normal. L1-2: There is no significant canal stenosis or neural foraminal narrowing. L2-3: There is no significant canal stenosis or neural foraminal narrowing. L3-4: There is no significant canal stenosis or neural foraminal narrowing. L4-5: Mild diffuse disc bulge. Mild to moderate bilateral neuroforaminal narrowing. L5-S1: Mild diffuse disc bulge. Mild bilateral neuroforaminal narrowing. IMPRESSION: Disc bulges at L4-5 and L5-S1 with bilateral neuroforaminal narrowing. Reviewed, Interpreted and Dictated by Benjamin Mendoza MD Transcribed by Charu Rankin Authenticated and [facility]
== END ==
PROVIDERS: PCP Nurse Practitioner Family; Visit Provider Nurse Practitioner Family
DX: M54.50 Low back pain, unspecified (principal)
CPT/HCPCS: 72148; 76376

== ENCOUNTER 2024-03-24 09:39 | Emergency (ER) | payer OTHER, SELFPAY ==
[2024-03-24 10:00] VITALS: BP 134/68; PULSE 74; RESP 17; TEMP 36.6; O2SAT 99; BMI 36.3
--- NOTE | 2024-03-24 10:16 | ED_ITS ---
Discharge Plan Disposition Patient Disposition: Home, Self-Care Condition: Good Prescriptions Prescriptions: New amoxicillin 875 mg tablet 875 mg PO Q12H Qty: 20 0RF fluticasone propionate [Flonase Allergy Relief] 50 mcg/actuation spray,suspension 2 spray intranasal DAILY Qty: 16 0RF Rx Instructions: administer into each nostril methylprednisolone [Medrol (Venkata)] 4 mg tablets,dose pack See Rx Instructions .Route .COMPLEX 6 Days Qty: 21 0RF Rx Instructions: taper pack; No Action omeprazole 20 mg capsule,delayed release(DR/EC) 20 mg PO DAILY Patient Comments: TAKE 1 CAPSULE BY MOUTH ONCE DAILY 30 MINUTES BEFORE MORNING MEAL levothyroxine 137 mcg Tablet 137 mcg PO DAILY montelukast 10 mg tablet 10 mg PO DAILY Patient Comments: TAKE 1 TABLET BY MOUTH AT BEDTIME FOR ALLERGY SYMPTOMS Referrals Follow up/Referrals: Lauren Kwong APRN [Primary Care Provider] - See instructions Activity Restrictions/Add. Instructions Additional Instructions/Restrictions: *Monitor Temp, Over the counter Motrin or Tylenol as directed/as needed Tylenol every 4 hours and Motrin every 6 hours (as long as your family doctor has told you that you can take it) for fever or pain. and straight to ER if unable to lower temp less than 101.0 after medication given *Warm salt water gargles may help to soothe the throat *Throat Lozenges? *Warm fluids like tea with honey may help to soothe the throat? *Sleep elevated *Humidifier/Vaporizer Your throat swab was sent for culture. Those results are typically sent to your primary care. Be sure to follow up in 2-3 days with your family doctor/primary care physician if no improvement so they can review those result and treat if necessary. If you don?t have a primary care doctor, I recommend you get one but in the mean time, you will have to return to a walk in clinic Follow up IMMEDIATELY for new or worsening symptoms or no Noticeable improvement over the next 48-72 hours. 911 for difficulty breathing or swallowing Clinical Impressions Clinical Impression: Otitis media Instructions Patient Instructions: Middle Ear Infection, Sore Throat Discharge ED Provider: Elisa Crowell [facility] [place] HPI General Stated complaint: bodyaches, dizzy, ear pain Mode of Arrival: Ambulatory Source of Information: Patient Limitations: No Limitations Time Seen by Provider: 03/24/24 10:16 Description of Symptoms (Recalled from Triage Doc. by RN): PATIENT C/O RIGHT EAR PAIN, NAUSEA, DIZZINESS, BODY ACHES, SORE THROAT, AND HEADACHE THAT STARTED A WEEK AGO BUT GOT WORSE YESTERDAY HEENT Symptoms (Recalled from RN notes): Yes Resp Symptoms (Recalled from RN notes): No Skin Symptoms (Recalled from RN notes): No MS Symptoms (Recalled from RN notes): No Functional Status (Recalled from RN notes): WNL History of Present Illness Provider Complaint: Patient states that for the last week she has been having sore throat, pain and pressure in her ears, dizziness at times when she turns her head too quickly, body aches and over all not feeling well States today she wasnt feeling any better so she came in Related Data Home Medications Medication Instructions Recorded Confirmed omeprazole 20 mg capsule,delayed 20 mg PO DAILY 11/08/23 03/24/24 release levothyroxine 137 mcg tablet 137 mcg PO DAILY 03/24/24 03/24/24 montelukast 10 mg tablet 10 mg PO DAILY 03/24/24 03/24/24 Previous Rx's Medication Instructions Recorded amoxicillin 875 mg tablet 875 mg PO Q12H #20 tabs 03/24/24 fluticasone propionate 50 2 spray intranasal DAILY #16 grams 03/24/24 mcg/actuation nasal spray,suspension (Flonase Allergy Relief) methylprednisolone 4 mg tablets in See Rx Instructions .Route 03/24/24 a dose pack (Medrol (Venkata)) .COMPLEX 6 days #21 tabs Allergies Allergy/AdvReac Type Severity Reaction Status Date / Time No Known Allergies Allergy Verified 11/29/23 13:44 Worker's Comp Is this a Worker's Comp case?: No [facility] Disclaimer: The information contained in this section may have been updated after the patient was seen, as this information can be updated by other users. Medical History (Updated 03/24/24 @ 10:25 by Elisa Crowell APRN) Encounter for gastric sleeve procedure Sleep apnea Osteoarthritis Raynaud disease Migraine Hypothyroidism Rae's disease Hypothyroidism Sinusitis Deviated septum Hypothyroid History of gastroesophageal reflux (GERD) Migraine Anxiety Depression Palpitations Asthma Obesity Surgical History (Updated 11/29/23 @ 13:44 by Melina Moore) H/O: H/O LEEP History of thyroid surgery History of placement of ear tubes H/O knee surgery History of hernia repair H/O endoscopy H/O gastric bypass Hx of gastric bypass Hx of section History of sleeve gastrectomy History of repair of ACL Family History Other No significant family history Social History (System 11/29/23 @ 13:44 by Melina Moore) Smoking Status: Never smoker alcohol intake: never substance use type: denies use and crack/cocaine current occupational status: employed Travel in the last 8 weeks: None household members: other housing: house number of children: 2 caffeine: Yes ROS Obtained: Yes All systems reviewed & no additional complaints except as documented and Yes Systems reviewed as appropriate & no additional complaints except as documented Constitutional Constitutional: Reports system reviewed and no additional complaints, except as documented, Reports as per HPI, Reports body ache, Reports chills and Reports headache(s) ENT Ears, Nose, Mouth, and Throat: Reports system reviewed and no additional complaints, except as documented, Reports as per HPI, Reports dizziness, Reports otalgia, Reports headache(s), Reports nasal congestion, Reports sinus pressure and Reports sore throat Cardiovascular Cardiovascular: Reports system reviewed and no additional complaints, except as documented and Reports as per HPI Respiratory Respiratory: Reports system reviewed and no additional complaints, except as documented and Reports as per HPI Gastrointestinal Gastrointestingal: Reports system reviewed and no additional complaints, except as documented and as per HPI Neurologic Neurologic: Reports dizziness and Reports headache(s) Physical Exam General General appearance: alert and in no apparent distress ENT ENT exam: Present mucous membranes moist Expanded ENT Exam TM/Canal exam: Right TM: erythema and Bilateral TM: bulging Nose exam: Present sinus tenderness Throat exam: Present other (PND noted) Respiratory Respiratory exam: Present normal lung sounds bilaterally; Absent respiratory distress or wheezes Cardiovascular Cardiovascular exam: Present regular rate, normal rhythm and normal heart sounds Neurological Exam Neurological exam: Present alert, oriented X3 and normal gait Medical Decision Making Carlo Inquiry Pt receiving controlled substance: No Carlo was queried for this patient: No Vital Signs: 03/24/24 10:00 Temperature 97.9 F Temperature Source Oral Pulse Rate [Left Brachial] 74 Respiratory Rate 17 Blood Pressure [Left Arm] 134/68 Blood Pressure Mean [Left Arm] 90 Blood Pressure Source [Left Arm] Automatic Cuff Blood Pressure Position [Left Arm] Sitting 02 Sat by Pulse Oximetry 99 Oxygen Delivery Method Room Air
[2024-03-24 10:26] VITALS: BP 134/68; PULSE 74; RESP 17; TEMP 36.6; O2SAT 99
[2024-03-24 10:26] LABS: UTC Strep Screen (Rapid) Negative (Negative)
== END 2024-03-24 10:28 | disposition home or self-care (01) ==
PROVIDERS: Emergency Provider Nurse Practitioner; PCP Nurse Practitioner Family
DX: H66.91 Otitis media, unspecified, right ear (principal); R42 Dizziness and giddiness; R07.0 Pain in throat
CPT/HCPCS: 87880; 99212; 99214; G0463

== ENCOUNTER 2024-12-12 07:54 | Outpatient (CLI) | payer BC, SELFPAY ==
--- NOTE | 2024-12-12 08:04 | US_ITS ---
FINAL REPORT TECHNIQUE: Ultrasound images of the abdomen were obtained. CLINICAL HISTORY: UPPER ABDOMINAL PAIN COMPARISON: None FINDINGS: The pancreas is obscured by bowel gas. The liver is unremarkable. There are numerous echogenic foci with posterior acoustical shadowing noted in the gallbladder, consistent with multiple gallstones. The common duct is normal. The right kidney measures 12 cm in length and is normal in echogenicity without hydronephrosis. The left kidney measures 10.7 cm in length and is normal in echogenicity without hydronephrosis. The spleen is unremarkable. The aorta is normal in caliber. The vena cava is unremarkable. IMPRESSION: Multiple gallstones are present in the gallbladder, without evidence of biliary ductal dilatation. Reviewed, Interpreted and Dictated by Benjamin Mendoza MD Transcribed by Charlene Phillip Authenticated and [facility]
== END 2024-12-12 23:59 | disposition home or self-care (01) ==
LOC: RAD 07:55
PROVIDERS: PCP Nurse Practitioner Family; Visit Provider Nurse Practitioner Family
DX: R10.10 Upper abdominal pain, unspecified (principal)
CPT/HCPCS: 76700

== ENCOUNTER 2024-12-21 16:19 | Emergency (ER) | payer BC, SELFPAY ==
[2024-12-21] VITALS (10 sets, daily range): BP systolic 110–146; BP diastolic 53–81; PULSE 52–75; RESP 16–19; TEMP 36.7–36.8; O2SAT 95–100; BMI 36.4; BMI 34.0
--- NOTE | 2024-12-21 17:19 | ED_ITS ---
<Statement entered by Bc Trammell MD - 12/21/24 22:46> I was consulted by the ALICE, and we discussed the complexity of problems being addressed. I approved the treatment and management plan for this patient's care in the emergency department, thus performing a substantial portion of the medical decision making. Independently performed exam, not overtly tender on my examination, no signs of peritoneal signs. She was resting comfortably and in no acute distress and tolerating oral intake in the emergency department. Negative imaging. Follow- up with bariatric surgeon and return precautions discussed Bc Trammell MD Discharge Plan Disposition Patient Disposition: Home, Self-Care Condition: Good Prescriptions Prescriptions: No Action omeprazole 20 mg capsule,delayed release(DR/EC) 20 mg PO DAILY Patient Comments: TAKE 1 CAPSULE BY MOUTH ONCE DAILY 30 MINUTES BEFORE MORNING MEAL sumatriptan succinate 100 mg tablet 100 mg PO DAILY Patient Comments: TAKE 1 TABLET BY MOUTH ONCE DAILY NEEDED FOR MIGRAINE HEADACHE levocetirizine 5 mg tablet 5 mg PO DAILY Patient Comments: TAKE 1 TABLET BY MOUTH ONCE DAILY FOR 30 DAYS montelukast 10 mg tablet See Rx Instructions .ROUTE .COMPLEX Qty: 90 4RF Dose Instruction: TAKE 1 TABLET BY MOUTH AT BEDTIME FOR ALLERGY SYMPTOMS Rx Instructions: TAKE 1 TABLET BY MOUTH AT BEDTIME FOR ALLERGY SYMPTOMS levothyroxine 137 mcg Tablet 137 mcg PO DAILY bisoprolol fumarate 5 mg tablet 5 mg PO DAILY Patient Comments: TAKE 1 TABLET BY MOUTH ONCE DAILY Referrals Follow up/Referrals: Lauren Kwong APRN [Primary Care Provider] - See instructions Activity Restrictions/Add. Instructions Additional Instructions/Restrictions: Today you were evaluated in the emergency department, your lab work was overall unremarkable and your CT shows some inflamed lymph nodes which should resolve on their own. Please follow-up with your PCP within 7 days. Follow-up with general surgery. Return to the ED at any worsening of your pain. Clinical Impressions Clinical Impression: Abdominal pain Instructions Patient Instructions: DI for Acute Abdominal Pain Print Language Print Language: Surinamese Discharge ED Provider: Bc Trammell [facility] [place] <Elisa Crowell APRN - Last Filed: 12/21/24 20:31> General Chief complaint: Abdominal Pain Stated complaint: Pain and nausea has gallstones Mode of Arrival: Ambulatory Source of Information: Patient Limitations: No Limitations Time Seen by Provider: 12/21/24 17:19 Description of Symptoms (Recalled from Triage Doc. by RN): PATIENT C/O LEFT- SIDED ABDOMINAL PAIN WITH NAUSEA. SHE STATES SHE HAS BEEN HAVING THIS PAIN INTERMITTENLY OVER THE PAST YEAR, BUT STATES LAST NIGHT THE PAIN BECAME CONSTANT. SHE STATES PAIN AT TIMES RADIATES TO HER BACK. PATIENT REPORTS SHE HAD AN ULTRASOUND PERFORMED LAST WEEK AND WAS TOLD SHE HAS GALLSTONES. HEENT Symptoms (Recalled from RN notes): No Resp Symptoms (Recalled from RN notes): No Skin Symptoms (Recalled from RN notes): No MS Symptoms (Recalled from RN notes): No Functional Status (Recalled from RN notes): WNL History of Present Illness Provider Complaint: Patient states that in 2017 she had Gastric Sleeve at [place] by Dr Villasenor and had to have Crow-en-Y [place] [address] Villasenor also States that she has been having intermittent pain in her left side going into her her back for about a year Seen Lauren Kwong APRN and she ordered a UltraSound and she had that done on the and found multiple gallstones States she seen Dr Barker last week and he recommended that she consult with Dr Villasenor in [place] due to pain being more left sided Patient states she has not followed up with Dr Villasenor yet and last night her pain in her left side got worse and more persistent states pain is a 9 out 10 and now constant so she came in Related Data Home Medications ?Medication ?Instructions ?Recorded ?Confirmed omeprazole 20 mg capsule,delayed 20 mg PO DAILY 11/08/23 12/21/24 release levothyroxine 137 mcg tablet 137 mcg PO DAILY 03/24/24 12/21/24 bisoprolol fumarate 5 mg tablet 5 mg PO DAILY 07/19/24 12/21/24 levocetirizine 5 mg tablet 5 mg PO DAILY 12/18/24 12/21/24 sumatriptan succinate 100 mg tablet 100 mg PO DAILY 12/18/24 12/21/24 Previous Rx's ?Medication ?Instructions ?Recorded montelukast 10 mg tablet See Rx Instructions .Route 09/01/24 .COMPLEX #90 tabs Allergies Allergy/AdvReac Type Severity Reaction Status Date / Time No Known Allergies Allergy Verified 12/18/24 09:15 Worker's Comp Is this a Worker's Comp case?: No PFS <Elisa Crowell APRN - Last Filed: 12/21/24 20:31> PFS Disclaimer: The information contained in this section may have been updated after the patient was seen, as this information can be updated by other users. Medical History Encounter for gastric sleeve procedure Sleep apnea Osteoarthritis Raynaud disease Migraine Hypothyroidism Rae's disease Hypothyroidism Sinusitis Deviated septum Hypothyroid History of gastroesophageal reflux (GERD) Migraine Anxiety Depression Palpitations Asthma Obesity Gastric sleeve in 2017, gastric bypass in 2021 Surgical History H/O: H/O LEEP History of thyroid surgery History of placement of ear tubes H/O knee surgery History of hernia repair H/O endoscopy H/O gastric bypass Hx of gastric bypass February 2022 Hx of section History of sleeve gastrectomy History of repair of ACL Family History Other Alcoholism Anxiety Depression Heart disease No significant family history Social History Smoking Status: Never smoker alcohol intake: never substance use type: denies use and crack/cocaine current occupational status: employed Travel in the last 8 weeks: None household members: other housing: house number of children: 2 caffeine: Yes Have you lived/traveled outside [place] in past 30 days?: No Contact w/someone who lives/traveled outside [place] past 30 days?: No Exposure to someone with infectious disease in past 14 days?: No Do you have a fever (greater than 100.4 F or 38 C)?: No Have you tested positive for COVID-19: No Exposed to someone with COVID-19 in past 14 days?: No Do you have a sore throat?: No Do you have a cough?: No Do you have any weakness?: No Do you have any diarrhea?: No Are you experiencing any unusual bleeding?: No Do you have any muscle aches/pain?: No Do you have any abdominal pain?: No Are you experiencing loss of taste or smell?: No <Elisa Crowell APRN - Last Filed: 12/21/24 20:31> ROS Obtained: Yes All systems reviewed & no additional complaints except as documented and Yes Systems reviewed as appropriate & no additional complaints except as documented Constitutional Constitutional: Reports system reviewed and no additional complaints, except as documented, Reports as per HPI, Denies body ache, Denies chills and Denies fever(s) ENT Ears, Nose, Mouth, and Throat: Reports system reviewed and no additional complaints, except as documented Cardiovascular Cardiovascular: Reports system reviewed and no additional complaints, except as documented and Reports as per HPI Respiratory Respiratory: Reports system reviewed and no additional complaints, except as documented and Reports as per HPI Gastrointestinal Gastrointestingal: Reports system reviewed and no additional complaints, except as documented, as per HPI and abdominal pain Musculoskeletal Musculoskeletal: Reports system reviewed and no additional complaints, except as documented and Reports as per HPI Physical Exam <Elisa Crowell APRN - Last Filed: 12/21/24 20:31> General General appearance: alert and in no apparent distress ENT ENT exam: Present mucous membranes moist Respiratory Respiratory exam: Present normal lung sounds bilaterally; Absent respiratory distress or wheezes Cardiovascular Cardiovascular exam: Present regular rate, normal rhythm and normal heart sounds Abdominal Exam Abdominal exam: Present tenderness (reports tenderness with palpation in left upper abdomen going into her back) and normal bowel sounds Neurological Exam Neurological exam: Present alert, oriented X3 and normal gait <Maribel Reed APRN - Last Filed: 12/21/24 21:15> Head Head exam: atraumatic and normocephalic Eye Eye exam: Present normal appearance and PERRL Neck Neck exam: Present normal inspection Chest Chest inspection: Present normal inspection and symmetric chest wall rise; Absent tenderness Abdominal Exam Abdominal exam: Present tenderness (tenderness with palpation in left upper abdomen going into her back) Extremities Exam Extremities exam: Present normal inspection and full ROM Back Exam Back exam: Present normal inspection and full ROM Psychiatric Psychiatric exam: Present normal affect and normal mood Skin Skin exam: Present warm and dry Medical Decision Making <Elisa Crowell APRN - Last Filed: 12/21/24 20:31> Medical Records Screening: Per USPSTF and CDC recommendations, given the prevalence of disease in our region, it is our hospital?s policy to screen for HIV and viral Hepatitis for all patients aged 18 and over and those with ongoing risk factors. Carlo Inquiry Pt receiving controlled substance: No Carlo was queried for this patient: No Vital Signs: 12/21/24 17:00 Temperature 98.3 F Temperature Source Oral Pulse Rate [Left Brachial] 70 Respiratory Rate 19 Blood Pressure [Left Arm] 142/71 H Blood Pressure Mean [Left Arm] 94 Blood Pressure Source [Left Arm] Automatic Cuff Blood Pressure Position [Left Arm] Sitting 02 Sat by Pulse Oximetry 100 Oxygen Delivery Method Room Air Lab Data 12/21/24 17:42 12/21/24 17:42 Medical Decision Narrative: Patient complaining of pain in her left upper abdomen going into her left side of back, that has got worse since last night and rates pain a 9/10 discussed with patient and due to hx and complaint of pain in her abdomen discussed transfer to the ED for further work up and evaluation and she agreed Called ED spoke with staff and was moved to room 6 <Maribel Reed APRN - Last Filed: 12/21/24 21:15> Vital Signs: 12/21/24 17:00 Temperature 98.3 F Temperature Source Oral Pulse Rate [Left Brachial] 70 Respiratory Rate 19 Blood Pressure [Left Arm] 142/71 H Blood Pressure Mean [Left Arm] 94 Blood Pressure Source [Left Arm] Automatic Cuff Blood Pressure Position [Left Arm] Sitting 02 Sat by Pulse Oximetry 100 Oxygen Delivery Method Room Air Medical Decision Narrative: In summary, patient is a 44-year-old female with no significant PMHx who presents to the ED with complaints of left upper quadrant abdominal pain that radiates around to the left side of her back. Patient states she was seen in the ED recently and diagnosed with cholelithiasis, states she followed up with surgery who advised that they were not going to be able to perform any surgery until patient was cleared by her previous bariatric surgeon. Patient states she is having difficulty getting into the bariatric surgeon. Reports that [id number] medications do not relieve her pain. Endorses nausea. Denies fever, chills, body aches, chest pain, shortness of breath, headache, visual disturbances, diarrhea, dysuria. Upon initial physical exam patient is alert, oriented and cooperative. She is stable. She has left upper quadrant abdominal tenderness, epigastric tenderness. Abdomen is soft. Breath sounds are clear bilaterally. Differential diagnosis includes ACS, dissection, pneumonia, pancreatitis, cholelithiasis, cholecystitis, SBO, infectious process, among others. Initial workup will be conducted with hematologic labs, CXR, CT of the abdomen and pelvis. Patient will be symptomatically managed with IV fluids, morphine and Zofran. Serum labs reviewed by me. CBC unremarkable for any leukocytosis, stable H&H. Lactic acid 0.7. CMP unremarkable for any actionable abnormalities, AST 60, ALT 36. Records reviewed from 12/12/2024, patient had an abdominal ultrasound that was remarkable for multiple gallstones present in the gallbladder without evidence of biliary ductal dilatation. Final read of the chest x-ray unremarkable for any acute findings. Final read of the CT abdomen pelvis unremarkable for anything acute, has mesenteric lymphangitis. Upon repeat evaluation patient had near resolution of her abdominal pain, given this I feel that she is safe to be discharged home at this time. I discussed with patient she will need to follow back up with PCP and general surgery for further evaluation. Discussed return precautions to the ED. Patient verbalized understanding. She was hemodynamically stable and ambulatory upon leaving the ED. <Bc Trammell MD - Last Filed: 12/21/24 23:09> Vital Signs: 12/21/24 17:00 Temperature 98.3 F Temperature Source Oral Pulse Rate [Left Brachial] 70 Respiratory Rate 19 Blood Pressure [Left Arm] 142/71 H Blood Pressure Mean [Left Arm] 94 Blood Pressure Source [Left Arm] Automatic Cuff Blood Pressure Position [Left Arm] Sitting 02 Sat by Pulse Oximetry 100 Oxygen Delivery Method Room Air Medical Decision Narrative: In summary, patient is a 44-year-old female with no significant PMHx who presents to the ED with complaints of left upper quadrant abdominal pain that radiates around to the left side of her back. Patient states she was seen in the ED recently and diagnosed with cholelithiasis, states she followed up with surgery who advised that they were not going to be able to perform any surgery until patient was cleared by her previous bariatric surgeon. Patient states she is having difficulty getting into the bariatric surgeon. Reports that [id number] medications do not relieve her pain. Endorses nausea. Denies fever, chills, body aches, chest pain, shortness of breath, headache, visual disturbances, diarrhea, dysuria. Upon initial physical exam patient is alert, oriented and cooperative. She is stable. She has left upper quadrant abdominal tenderness, epigastric tenderness. Abdomen is soft. Breath sounds are clear bilaterally. Differential diagnosis includes ACS, dissection, pneumonia, pancreatitis, cholelithiasis, cholecystitis, SBO, infectious process, among others. Initial workup will be conducted with hematologic labs, CXR, CT of the abdomen and pelvis. Patient will be symptomatically managed with IV fluids, morphine and Zofran. Serum labs reviewed by me. CBC unremarkable for any leukocytosis, stable H&H. Lactic acid 0.7. CMP unremarkable for any actionable abnormalities, AST 60, ALT 36. Records reviewed from 12/12/2024, patient had an abdominal ultrasound that was remarkable for multiple gallstones present in the gallbladder without evidence of biliary ductal dilatation. Final read of the chest x-ray unremarkable for any acute findings. Final read of the CT abdomen pelvis unremarkable for anything acute, has mesenteric lymphangitis. Upon repeat evaluation patient had near resolution of her abdominal pain, given this I feel that she is safe to be discharged home at this time. I discussed with patient she will need to follow back up with PCP and general surgery for further evaluation. Discussed return precautions to the ED. Patient verbalized understanding. She was hemodynamically stable and ambulatory upon leaving the ED. IBc MD independently interpreted the EKG to demonstrate normal sinus rhythm with no acute ischemic ST changes, intervals within normal limits.
[2024-12-21 17:42] LABS: Microscopic, Urine URINE MICROSCOPIC (MICROSCOPIC)
[2024-12-21 17:53] LABS: Appearance,Urine CLEAR (Clear); Bilirubin,Urine Negative (Negative); Blood, Urine Negative (Negative); Color,Urine YELLOW (Yellow); Glucose,Urine (UA) Negative (Negative); Ketones,Urine Negative (Negative); Leukocyte Esterase,Urine Negative (Negative); Nitrate,Urine Negative (Negative); Protein,Urine Negative (Negative); Urobilinogen,Urine 0.2 EU/dl (0.2)
--- NOTE | 2024-12-21 18:03 | XR_ITS ---
PROCEDURE INFORMATION: Exam: XR Chest Exam date and time: 12/21/2024 6:36 PM Age: 44 years old Clinical indication: Pain; Other: Epigastric TECHNIQUE: Imaging protocol: Radiologic exam of the chest. Views: 1 view. COMPARISON: CT ANGIO CHEST PE PROTOCOL 10/28/2021 10:04 PM FINDINGS: Lungs: Unremarkable. No consolidation. Pleural spaces: Unremarkable. No pleural effusion. No pneumothorax. Heart/Mediastinum: Unremarkable. No cardiomegaly. Bones/joints: Unremarkable. IMPRESSION: No acute findings.
--- NOTE | 2024-12-21 18:03 | CT_ITS ---
PROCEDURE INFORMATION: Exam: CT Abdomen And Pelvis With Contrast Exam date and time: 12/21/2024 6:49 PM Age: 44 years old Clinical indication: Abdominal pain; PT stated she knows she has gallstones; Additional info: Luq abd pain TECHNIQUE: Imaging protocol: Computed tomography of the abdomen and pelvis with contrast. Radiation optimization: All CT scans at this facility use at least one of these dose optimization techniques: automated exposure control; mA and/or kV adjustment per patient size (includes targeted exams where dose is matched to clinical indication); or iterative reconstruction. Contrast material: ISOVUE; Contrast volume: 75 ml; Contrast route: IV; COMPARISON: CT ABDOMEN PELVIS WO CON 04/29/2021 3:20 PM FINDINGS: Liver: Normal. No mass. Gallbladder and biliary ducts: No radiopaque gallstones identified. No gallbladder wall thickening. Pancreas: Normal. No ductal dilation. Spleen: Normal. No splenomegaly. Adrenal glands: Normal. No mass. Kidneys and ureters: Normal. No hydronephrosis. Stomach and bowel: Surgical changes of stomach. Sigmoid colonic diverticula without pericolonic fat stranding. Appendix: No evidence of appendicitis. Intraperitoneal space: Unremarkable. No free air. No significant fluid collection. Vasculature: Unremarkable. No abdominal aortic aneurysm. Lymph nodes: Shotty retroperitoneal/mesenteric lymph nodes without lymphadenopathy. Urinary bladder: Unremarkable as visualized. Reproductive: 1.9 cm likely right ovarian cyst. Suboptimally visualized ovaries. Bones/joints: ORIF of left sacroiliac joint. No acute osseous findings. Soft tissues: Unremarkable. IMPRESSION: 1. No radiopaque gallstones identified. Ultrasound more sensitive for identifying non radiopaque gallstones. 2. Likely mesenteric lymphangitis. 3. Colonic diverticulosis.
[2024-12-21 18:11] LABS: Basophils # 0.1 K/mm3 (0-0.2); Eosinophils # 0.1 K/mm3 (0.0-0.4); Eosinophils % 0.8 % (0.1-12.0); Hematocrit 38.3 % (37.0-47.0); Hemoglobin 12.3 g/dL (12.2-16.2); Lymphocytes # 1.6 K/mm3 (0.7-4.5); Lymphocytes % 27.6 % (10-50); Mean Corpuscular HGB Conc 32.1 g/dL (31.8-35.4); Mean Corpuscular Hemoglobin 28.5 pg (27.0-31.2); Mean Corpuscular Volume 88.9 fl (81-99); Mean Platelet Volume 10.5 fl (7.4-10.4); Monocytes # 0.5 K/mm3 (0.1-1.0); Monocytes % 8.6 % (1.7-9.3); Neutrophils # 3.7 K/mm3 (1.8-7.8); Neutrophils % 61.8 % (37.0-80.0); Platelet Count 298 K/mm3 (142-424); Red Blood Count 4.31 M/mm3 (4.20-5.40); Red Cell Distribution Width 14.9 % (11.5-17.5); White Blood Count 5.9 K/mm3 (4.8-10.8)
--- NOTE | 2024-12-21 18:12 | ECG_ITS ---
APPROVED REPORT Exam: Resting ECG HR:63 bpm ECG Measurements Heart Rate 63 AXES NM 159 P 31 QRSd 84 QRS 31 QT 403 T 46 QTc 411 Conclusion SINUS RHYTHM NORMAL ECG UNCONFIRMED REPORT Electronically signed by : Bc Trammell, 12/21/2024 23:18:05
[2024-12-21] MEDS: MORPHINE 4MG/ML SYRINGE 4 MG IV (18:15)
[2024-12-21] MEDS: ONDANSETRON 4MG/2ML VIAL 4 MG IV (18:15)
[2024-12-21 18:23] LABS: Urine Pregnancy, HCG Qual. Negative (Negative)
[2024-12-21 18:26] LABS: Alanine Aminotransferase 36 U/L (12-78); Albumin Level 5.1 g/dl (3.5-5.0); Albumin/Globulin Ratio 1.7 (1.1-1.8); Alkaline Phosphatase 101 U/L (38-126); Anion Gap 13.9 mEq/L (5-15); Aspartate Amino Transferase 60 U/L (14-36); Bilirubin,Total 0.8 mg/dl (0.2-1.3); Blood Urea Nitrogen 16 mg/dl (7-17); Calcium 9.3 mg/dl (8.4-10.2); Carbon Dioxide 22 mmol/L (22.0-30.0); Chloride 105 mmol/L (98-107); Creatinine Clearance Estimated 149 mL/min (50-200); Estimated Glomerular Filt Rate 78 ml/min (>60); GFR (African American) 95 ML/MIN (>60); Glucose 92 mg/dl (74-100); Lipase 102 U/L (23-300); Potassium 3.9 mmoL/L (3.5-5.1); Sodium 137 mmol/L (136-145); Total Protein,Serum 8.1 g/dl (6.3-8.2)
[2024-12-21 18:31] LABS: Lactate Venous 0.7 mmol/L (0.4-2.0)
[2024-12-21 18:32] LABS: Bacteria,Urine Trace /lpf; WBC,Urine Occasional #/hpf (0-3)
[2024-12-21 18:40] LABS: Troponin I < 0.01 ng/ml (0.00-0.034)
[2024-12-21] MEDS: IOPAMIDOL-370 (76%);100ML BOTTLE 75 ML IV (18:50)
[2024-12-21] MEDS: SODIUM CHLORIDE 0.9% 10ML SYR (RAD ONLY) 10 ML IV (18:50)
--- NOTE | 2024-12-21 19:25 | PC.NURSE ---
no complaints this time.
[2024-12-21 19:57] LABS: HIV Combo NEGATIVE (Negative)
[2024-12-21 20:05] LABS: Hepatitis C Ab Qual. W/ RFX NEGATIVE (Negative)
[2024-12-21] MEDS: BELLADONNA ALKALOIDS 60 ML ML PO (20:37)
[2024-12-21] MEDS: KETOROLAC 30MG/ML VIAL 15 MG IV (20:38)
== END 2024-12-21 21:17 | disposition home or self-care (01) ==
LOC: UTC 16:22 → ER 17:29
PROVIDERS: Nurse Practitioner; Emergency Provider Emergency Medicine; PCP Nurse Practitioner Family
DX: R10.9 Unspecified abdominal pain (principal); R11.0 Nausea
CPT/HCPCS: 71045; 74177; 80053; 81001; 81025; 83605; 83690; 84484; 85025; 86803; 87389; 93005; 96374; 96375; 99285; J1885; J2270; J2405; Q9967

== ENCOUNTER 2025-07-21 13:54 | Outpatient (CLI) | payer BC, SELFPAY ==
[2025-07-21 15:11] LABS: Hematocrit 39.5 % (37.0-47.0); Hemoglobin 13.1 g/dL (12.2-16.2); Mean Corpuscular HGB Conc 33.2 g/dL (31.8-35.4); Mean Corpuscular Hemoglobin 29.8 pg (27.0-31.2); Mean Corpuscular Volume 90.0 fl (81-99); Platelet Count 342 K/mm3 (142-424); Red Blood Count 4.39 M/mm3 (4.20-5.40); White Blood Count 7.1 K/mm3 (4.8-10.8)
[2025-07-21 15:32] LABS: Alanine Aminotransferase 28 U/L (12-78); Albumin Level 4.6 g/dl (3.5-5.0); Albumin/Globulin Ratio 1.4 (1.1-1.8); Alkaline Phosphatase 101 U/L (38-126); Anion Gap 13.3 mEq/L (5-15); Aspartate Amino Transferase 33 U/L (14-36); Bilirubin,Total 0.7 mg/dl (0.2-1.3); Blood Urea Nitrogen 15 mg/dl (7-17); Calcium 9.7 mg/dl (8.4-10.2); Carbon Dioxide 25 mmol/L (22.0-30.0); Chloride 104 mmol/L (98-107); Creatinine,Serum 0.80 mg/dl (0.52-1.04); Estimated Glomerular Filt Rate 78 ml/min (>60); GFR (African American) 94 ML/MIN (>60); Globulin 3.2 g/dL (1.3-3.2); Glucose 80 mg/dl (74-100); Potassium 4.3 mmoL/L (3.5-5.1); Sodium 138 mmol/L (136-145); Total Protein,Serum 7.8 g/dl (6.3-8.2)
[2025-07-21 16:01] LABS: Thyroid Stimulating Hormone 0.51 uIU/mL (0.465-4.68)
[2025-07-21 16:13] LABS: RBC Morphology Normal; Total Cells Counted 100
[2025-07-21 16:32] LABS: Hemoglobin A1C 5.3 % (4.0-6.0)
== END 2025-07-21 23:59 | disposition home or self-care (01) ==
LOC: LAB 13:54
PROVIDERS: PCP Nurse Practitioner Family; Visit Provider Obstetrics & Gynecology
DX: I10 Essential (primary) hypertension (principal); E78.2 Mixed hyperlipidemia; R73.03 Prediabetes; E55.9 Vitamin D deficiency, unspecified; N93.9 Abnormal uterine and vaginal bleeding, unspecified; Z68.34 Body mass index [BMI] 34.0-34.9, adult
CPT/HCPCS: 36415; 80053; 83036; 84146; 84443; 85007; 85014; 85018; 85048; 85049

== ENCOUNTER 2025-07-23 07:45 | Outpatient (CLI) | payer BC, SELFPAY ==
--- NOTE | 2025-07-23 08:00 | US_ITS ---
PROCEDURE: US TRANSVAGINAL CLINICAL INDICATION: abnormal uterine bleeding COMPARISON: US US ABDOMEN COMPLETE from 12/12/[address] ABDOMEN PELVIS W CON from 12/21/2024 FINDINGS: Transvaginal sonographic images of the pelvis were obtained. UTERUS: 10.0cm x 6.0cmx 4.6 cm anteverted with a combined endometrial thickness of 10.3mm. The endometrium appears heterogenous and there appears to be a posterior polyp. See image 12. The endometrial basalis appears irregular and this could represent adenomyosis. There are at least 3 nabothian cysts in the cervix. The largest measures 1.2 cm scar is present. There is a small amount of fluid within the cervical canal. LEFT OVARY: 2.3cmx1.7 cmx1.0cm There is a 1 cm follicle in left ovary. RIGHT OVARY: 3.7 cmx 2.4cmx1.8 cm with a volume of 8.4ml. There is a follicle measuring 2.1 cm x 1.9 cm x 1.6 cm. Both ovaries are seen and appear normal. Doppler flow to both ovaries are seen. There is no fluid in the cul-de-sac. IMPRESSION: 1. Anteverted, bulky uterus. The endometrium measures 10.3 mm and the basalis is irregular possibly indicating adenomyosis. On image 12 there appears to be a polyp arising from the posterior endometrium. There is a small amount of fluid in the cervical canal. 2. Both ovaries are seen and appear normal. The left ovary has a 1 cm follicle in the right ovary has a 2.1 cm follicle. 3. No fluid in the cul-de-sac. Dictated by: Rajesh Rivas MD 07/24/2025 06:47 Rajesh Rivas MD in OV 07/24/2025 06:47
== END 2025-07-23 23:59 | disposition home or self-care (01) ==
LOC: RAD 07:45
PROVIDERS: PCP Nurse Practitioner Family; Visit Provider Obstetrics & Gynecology
DX: N85.4 Malposition of uterus (principal); N85.2 Hypertrophy of uterus; N83.02 Follicular cyst of left ovary; N83.01 Follicular cyst of right ovary; R93.89 Abnormal findings on diagnostic imaging of other specified body structures
CPT/HCPCS: 76830

== ENCOUNTER 2025-09-29 21:31 | Emergency (ER) | payer OTHER, SELFPAY ==
[2025-09-29 21:38] VITALS: BP 184/93; PULSE 95; RESP 18; TEMP 36.8; O2SAT 98; BMI 36.3
--- NOTE | 2025-09-29 21:47 | PC.NURSE ---
Pt awake alert and oriented Skin pink warm and dry Resp full and easy Speech clear and appropriate Family at bedside Pt has C-collar in place. Denies paraesthsia denies incontinence
--- NOTE | 2025-09-29 21:52 | CT_ITS ---
PROCEDURE INFORMATION: Exam: CT Head Without Contrast Exam date and time: 09/29/2025 10:46 PM Age: 45 years old Clinical indication: Pain; Headache; Additional info: Fall TECHNIQUE: Imaging protocol: Computed tomography of the head without contrast. Radiation optimization: All CT scans at this facility use at least one of these dose optimization techniques: automated exposure control; mA and/or kV adjustment per patient size (includes targeted exams where dose is matched to clinical indication); or iterative reconstruction. COMPARISON: CT SINUS WO CON 05/30/2023 1:36 PM FINDINGS: Brain: Normal. No hemorrhage. Unremarkable white matter. No mass effect. Cerebral ventricles: No ventriculomegaly. Paranasal sinuses: Visualized sinuses are unremarkable. No fluid levels. Mastoid air cells: Visualized mastoid air cells are well aerated. Bones: Unremarkable. No acute fracture. Soft tissues: Unremarkable. IMPRESSION: No acute intracranial abnormality.
--- NOTE | 2025-09-29 21:52 | XR_ITS ---
PROCEDURE INFORMATION: Exam: XR Right Shoulder Exam date and time: 09/29/2025 10:42 PM Age: 45 years old Clinical indication: Pain; Shoulder; Right TECHNIQUE: Imaging protocol: Radiologic exam of the right shoulder. Views: 2 or more views. COMPARISON: CR XR CHEST PORTABLE 12/21/2024 6:36 PM FINDINGS: Bones/joints: Normal. Soft tissues: Normal. IMPRESSION: No acute findings.
--- NOTE | 2025-09-29 21:52 | CT_ITS ---
PROCEDURE INFORMATION: Exam: CT Cervical Spine Without Contrast Exam date and time: 09/29/2025 10:49 PM Age: 45 years old Clinical indication: Neck pain TECHNIQUE: Imaging protocol: Computed tomography of the cervical spine without contrast. Radiation optimization: All CT scans at this facility use at least one of these dose optimization techniques: automated exposure control; mA and/or kV adjustment per patient size (includes targeted exams where dose is matched to clinical indication); or iterative reconstruction. COMPARISON: CT HEAD/BRAIN WO CON 09/29/2025 10:46 PM FINDINGS: Bones: No acute fracture. Normal alignment. No significant disc bulge or herniation. No severe spinal canal stenosis. No significant neural foraminal narrowing. Mild disc space narrowing and marginal osteophytosis at C4-C5 and C5-C6. Lungs: Lung apices are normal. Soft tissues: Unremarkable. IMPRESSION: 1. No acute cervical spine fracture. 2. Mild degenerative disc disease at C4-C5 and C5-C6.
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
--- OUTSIDE RECORDS SUMMARY | 2025-09-29 21:54 | XMS_ITS | Data Portability ---
Author Organization ADONIS R[facility]Y [facility] RANDY [facility] ADMIN Address [address] [place] [id number] Assessment No assessment recorded. Plan of Treatment Reminders Order Date Submit Date Provider Last Modified By Organization Details Last Modified Time Details Appointments None recorded. Lab CBC w/ auto diff 2024 025 SHAN[facility], [address], [address], [place], [address], 5 14:36:25 CMP, serum or plasma 2024 025 SHANITA [facility], [address], [address], [place], [address], 5 14:36:26 iron + TIBC + ferritin, serum 2024 025 SHANITA [facility], [address], [address], [place], [address], 5 14:36:24 copper, serum or plasma 2024 025 SHANITA [facility], [address], [address], [place], [address], 5 14:36:32 vitamin D, 25-hydroxy, total, serum 2024 025 SHANITA [facility], [address], [address], [place], [address], 5 14:36:29 folate, serum 2024 025 SHANITA [facility], [address], [address], [place], [address], 14:36:29 prealbumin, serum 2024 025 SHANITA [facility], [address], [address], [place], [address], 14:36:32 thiamine, QN, blood 2024 025 SHANITA [facility], [address], [address], [place], [address], 14:36:30 HbA1c (hemoglobin A1c), blood 2024 025 SHANITA [facility], [address], [address], [place], [address], 14:36:28 lipid panel, serum 2024 025 SHANITA [facility], [address], [address], [place], [address], 14:36:27 methylmalon ate, QN, serum or plasma 2024 025 SHANITA [facility], [address], [address], [place], [address], 14:36:31 copper, serum or plasma 2024 025 SHANITA [facility], [address], [address], [place], [address], 5 14:37:17 CBC w/ auto diff 2024 025 SHANITA [facility], [address], [address], [place], [address], 5 14:37:12 iron + TIBC + ferritin, serum 2024 025 SHANITA [facility], [address], [address], [place], [address], 5 14:37:10 vitamin D, 25-hydroxy, total, serum 2024 025 SHANITA [facility], [address], [address], [place], [address], 5 14:37:15 zinc, serum or plasma 2024 025 SHANITA [facility], [address], [address], [place], [address], 5 14:37:17 folate, serum 2024 025 SHANITA [facility], [address], [address], [place], [address], 5 14:37:14 thiamine, QN, blood 2024 025 SHANITA [facility], [address], [address], [place], [address], 5 14:37:16 methylmalon ate, QN, serum or plasma 2024 025 SHANITA [facility], [address], [address], [place], [address], 5 14:37:16 selenium, quantitativ e, blood 2024 025 SHANITA [facility], [address], [address], [place], [address], 5 14:37:19 CMP, serum or plasma 2024 025 SHANITA [facility], [address], [address], [place], [address], 5 14:37:12 vitamin E, serum 2024 025 [facility], [address], [address], [place], [address], 5 14:37:13 vitamin A (retinol), serum 2024 025 [facility], [address], [address], [place], [address], 5 14:37:14 TSH + free T4, serum 2024 025 [facility], [address], [address], [place], [address], 5 14:37:11 prealbumin, serum 2024 025 [facility], [address], [address], [place], [address], 5 14:37:18 Referral None recorded. Procedures None recorded. Surgeries None recorded. Imaging None recorded. Medication Orders Qsymia 3.75 mg-23 mg capsule, extended release 2024 025 [facility], [address] [place] [address], [facility] [address], [place], [address], 5 05:02:48 Qsymia 7.5 mg-46 mg capsule, extended release 2024 025 [facility], [address] [place] [address], [place], [address], 5 12:30:21 omeprazole 20 mg capsule,del ayed release 2024 025 [facility] 591, [address], [address], 10:22:33 Patient Targets Encounter Date Encounter Id Patient Goals Patient Target Last Modified By Organization Details Last Modified Time 06/22/2025 [id number] 1. Eat 5-6 times a day 2. Decrease eating out to 2 times a week 3. Review manual for meal and snack ideas 4. Increase protein to 70-100 gm/day 5. Track carb, fat, and fiber intake in addition to protein and kcal 6. Physical activity 3 times a week 20 min [email or web address] Not available 06/22/2025 13:36:24 Patient InstructionsNo instructions recorded. Reason for Referral None Reported. Results Created Date Observation Date Name Description Value Unit Range Abnormal Flag Note LastModifiedBy Organization Detail LastModifiedTime 12/29/1912/30/2024 FE+TI BC+FE R iron bind.cap.(TI BC) 399 ug/dL 250-45 0 normal Not Available [facility] ([facility]) [address] [place], [address], 01/09/2025 14:37:10 12/29/19 25 12/30/2024 FE+TI BC+FE R UIBC 364 ug/dL 131-42 5 normal Not Available [facility] ([facility]) [address] [place], [address], 01/09/2025 14:37:10 12/29/19 25 12/30/2024 FE+TI BC+FE R iron 35 ug/dL 27-159 normal Not Available [facility] ([facility]) [address] [place], [address], 01/09/2025 14:37:10 12/29/19 25 12/30/2024 FE+TI BC+FE R iron saturation 9 % 15-55 alert low Not Available [facility] ([facility]) [address] [place], [address], 01/09/2025 14:37:10 12/29/19 25 12/30/2024 FE+TI BC+FE R ferritin 16 NG/mL 15-150 normal Not Available [facility] ([facility]) [address] [place], [address], 01/09/2025 14:37:10 12/29/19 25 12/30/2024 TSH+F REE T4 TSH 1.430 uIU/m L 0.450- 4.500 normal Not Available [facility] ([facility]) [address] [place], [address], 01/09/2025 14:37:11 12/29/19 25 12/30/2024 TSH+F REE T4 T4,free(dire ct) 1.39 NG/dL 0.82-1 .77 normal Not Available [facility] ([facility]) [address] [place], [address], 01/09/2025 14:37:11 12/29/19 25 12/30/2024 CBC WITH DIFFE RENTI AL/PL ATELE T WBC 5.2 x10e3 /uL 3.4-10 .8 normal Not Available [facility] ([facility]) [address] [place], [address], 01/09/2025 14:37:11 12/29/19 25 12/30/2024 CBC WITH DIFFE RENTI AL/PL ATELE T RBC 4.34 x10e6 /uL 3.77-5 .28 normal Not Available [facility] ([facility]) [address] [place], [address], 01/09/2025 14:37:11 12/29/19 25 12/30/2024 CBC WITH DIFFE RENTI AL/PL ATELE T hemoglobin 12.5 g/dL 11.1-1 5.9 normal Not Available [facility] ([facility]) [address] [place], [address], 01/09/2025 14:37:11 12/29/19 25 12/30/2024 CBC WITH DIFFE RENTI AL/PL ATELE T hematocrit 39.2 % 34.0-4 6.6 normal Not Available [facility] ([facility]) [address] [place], [address], 01/09/2025 14:37:11 12/29/19 25 12/30/2024 CBC WITH DIFFE RENTI AL/PL ATELE T MCV 90 fL 79-97 normal Not Available [facility] ([facility]) [address] [facility], [place], [address], 01/09/2025 14:37:11 12/29/19 25 12/30/2024 CBC WITH DIFFE RENTI AL/PL ATELE T MCH 28.8 pg 26.6-3 3.0 normal Not Available [facility] ([facility]) [address] [facility], [place], [address], 01/09/2025 14:37:11 12/29/19 25 12/30/2024 CBC WITH DIFFE RENTI AL/PL ATELE T MCHC 31.9 g/dL 31.5-3 5.7 normal Not Available [facility] ([facility]) [address] [place], [address], 01/09/2025 14:37:11 12/29/19 25 12/30/2024 CBC WITH DIFFE RENTI AL/PL ATELE T RDW 14.3 % 11.7-1 5.4 Not Available [facility] ([facility]) [address] [place], [address], 01/09/2025 14:37:11 12/29/19 25 12/30/2024 CBC WITH DIFFE RENTI AL/PL ATELE T platelets 285 x10e3 /uL 150-45 0 normal Not Available [facility] ([facility]) [address] [place], [address], 01/09/2025 14:37:11 12/29/19 25 12/30/2024 CBC WITH DIFFE RENTI AL/PL ATELE T neutrophils 61 % not estab. normal Not Available [facility] ([facility]) [address] [facility], [place], [address], 01/09/2025 14:37:11 12/29/19 25 12/30/2024 CBC WITH DIFFE RENTI AL/PL ATELE T lymphs 30 % not estab. normal Not Available [facility] ([facility]) [address] [facility], [place], [address], 01/09/2025 14:37:11 12/29/19 25 12/30/2024 CBC WITH DIFFE RENTI AL/PL ATELE T monocytes 7 % not estab. normal Not Available [facility] ([facility]) [address] [facility], [place], [address], 01/09/2025 14:37:11 12/29/19 25 12/30/2024 CBC WITH DIFFE RENTI AL/PL ATELE T eos 1 % not estab. normal Not Available [facility] ([facility]) [address] [facility], [place], [address], 01/09/2025 14:37:11 12/29/19 25 12/30/2024 CBC WITH DIFFE RENTI AL/PL ATELE T basos 1 % not estab. normal Not Available [facility] ([facility]) [address] [facility], [place], [address], 01/09/2025 14:37:11 12/29/19 25 12/30/2024 CBC WITH DIFFE RENTI AL/PL ATELE T immature cells OIL MIXER Not Available [facility] ([facility]) [address] [facility], [place], [address], 01/09/2025 14:37:11 12/29/19 25 12/30/2024 CBC WITH DIFFE RENTI AL/PL ATELE T neutrophils (absolute) 3.1 x10e3 /uL 1.4-7. 0 normal Not Available [facility] ([facility]) [address] [place], [address], 01/09/2025 14:37:11 12/29/19 25 12/30/2024 CBC WITH DIFFE RENTI AL/PL ATELE T lymphs (absolute) 1.5 x10e3 /uL 0.7-3. 1 normal Not Available [facility] ([facility]) [address] [facility], [place], [address], 01/09/2025 14:37:11 12/29/19 25 12/30/2024 CBC WITH DIFFE RENTI AL/PL ATELE T monocytes(ab solute) 0.4 x10e3 /uL 0.1-0. 9 normal Not Available [facility] ([facility]) [address] [place], [address], 01/09/2025 14:37:11 12/29/19 25 12/30/2024 CBC WITH DIFFE RENTI AL/PL ATELE T eos (absolute) 0.1 x10e3 /uL 0.0-0. 4 normal Not Available [facility] ([facility]) [address] [place], [address], 01/09/2025 14:37:11 12/29/19 25 12/30/2024 CBC WITH DIFFE RENTI AL/PL ATELE T baso (absolute) 0.1 x10e3 /uL 0.0-0. 2 normal Not Available [facility] ([facility]) [address] [facility], [place], [address], 01/09/2025 14:37:11 12/29/19 25 12/30/2024 CBC WITH DIFFE RENTI AL/PL ATELE T immature granulocytes 0 % not estab. Not Available [facility] ([facility]) [address] [facility], [place], [address], 01/09/2025 14:37:11 12/29/19 25 12/30/2024 CBC WITH DIFFE RENTI AL/PL ATELE T immature grans (abs) 0.0 x10e3 /uL 0.0-0. 1 Not Available [facility] ([facility]) [address], [place], [address], 01/09/2025 14:37:11 12/29/19 25 12/30/2024 CBC WITH DIFFE RENTI AL/PL ATELE T NRBC OIL MIXER Not Available [facility] ([facility]) [address], [place], [address], 01/09/2025 14:37:11 12/29/19 25 12/30/2024 CBC WITH DIFFE RENTI AL/PL ATELE T hematology comments: OIL MIXER Not Available [facility] ([facility]) [address], [place], [address], 01/09/2025 14:37:11 12/29/19 25 12/30/2024 COMP. METAB OLIC PANEL (14) glucose 91 mg/dL 70-99 normal Not Available [facility] ([facility]) [address], [place], [address], 01/09/2025 14:37:12 12/29/19 25 12/30/2024 COMP. METAB OLIC PANEL (14) BUN 14 mg/dL 6-24 normal Not Available [facility] ([facility]) [address] [place] [place], [address], 01/09/2025 14:37:12 12/29/19 25 12/30/2024 COMP. METAB OLIC PANEL (14) creatinine 0.85 mg/dL 0.57-1 .00 normal Not Available [facility] ([facility]) [address] [facility] [place], [address], 01/09/2025 14:37:12 12/29/19 25 12/30/2024 COMP. METAB OLIC PANEL (14) eGFR 87 mL/mi n/1.7 3 >59 normal Not Available [facility] ([facility]) [address] [facility], [place], [address], 01/09/2025 14:37:12 12/29/19 25 12/30/2024 COMP. METAB OLIC PANEL (14) BUN/creatini ne ratio 16 9-23 normal Not Available [facility] ([facility]) [address] [facility], [place], [address], 01/09/2025 14:37:12 12/29/19 25 12/30/2024 COMP. METAB OLIC PANEL (14) sodium 144 mmol/ L 134-14 4 normal Not Available [facility] ([facility]) [address] [facility], [place], [address], 01/09/2025 14:37:12 12/29/19 25 12/30/2024 COMP. METAB OLIC PANEL (14) potassium 4.8 mmol/ L 3.5-5. 2 normal Not Available [facility] ([facility]) [address] [place], [address], 01/09/2025 14:37:12 12/29/19 25 12/30/2024 COMP. METAB OLIC PANEL (14) chloride 103 mmol/ L 96-106 normal Not Available [facility] ([facility]) [address] [place], [address], 01/09/2025 14:37:12 12/29/19 25 12/30/2024 COMP. METAB OLIC PANEL (14) carbon dioxide, total 23 mmol/ L 20-29 normal Not Available [facility] ([facility]) [address] [place], [address], 01/09/2025 14:37:12 12/29/19 25 12/30/2024 COMP. METAB OLIC PANEL (14) calcium 9.8 mg/dL 8.7-10 .2 normal Not Available [facility] ([facility]) [address] [place], [address], 01/09/2025 14:37:12 12/29/19 25 12/30/2024 COMP. METAB OLIC PANEL (14) protein, total 7.7 g/dL 6.0-8. 5 normal Not Available [facility] ([facility]) [address] [place], [address], 01/09/2025 14:37:12 12/29/19 25 12/30/2024 COMP. METAB OLIC PANEL (14) albumin 4.5 g/dL 3.9-4. 9 normal Not Available [facility] ([facility]) [address] [facility], [place], [address], 01/09/2025 14:37:12 12/29/19 25 12/30/2024 COMP. METAB OLIC PANEL (14) globulin, total 3.2 g/dL 1.5-4. 5 Not Available [facility] ([facility]) [address] [place], [address], 01/09/2025 14:37:12 12/29/19 25 12/30/2024 COMP. METAB OLIC PANEL (14) bilirubin, total 0.4 mg/dL 0.0-1. 2 normal Not Available [facility] ([facility]) [address] [place], [address], 01/09/2025 14:37:12 12/29/19 25 12/30/2024 COMP. METAB OLIC PANEL (14) alkaline phosphatase 94 IU/L 44-121 normal Not Available [facility] ([facility]) [address] [place], [address], 01/09/2025 14:37:12 12/29/19 25 12/30/2024 COMP. METAB OLIC PANEL (14) AST (SGOT) 25 IU/L 0-40 normal Not Available [facility] ([facility]) [address] [place], [address], 01/09/2025 14:37:12 12/29/19 25 12/30/2024 COMP. METAB OLIC PANEL (14) ALT (SGPT) 17 IU/L 0-32 normal Not Available [facility] ([facility]) [address] [facility], [place], [address], 01/09/2025 14:37:12 12/29/19 25 01/01/2025 VITAM IN E vitamin E(alpha tocopherol) 8.7 mg/L 7.0-25 .1 Not Available [facility] ([facility]) [address] [facility], [place], [address], 01/09/2025 14:37:13 12/29/19 25 01/01/2025 VITAM IN E vitamin E(gamma tocopherol) 1.3 mg/L 0.5-5. 5 Refer ence inter vals for alpha and gamma -toco phero l deter mined from [facility] tion Exami natio n Surve y, 2004- 2005. Indiv idual s with alpha -toco phero l level s less than 5.0 mg/L are consi dered vitam in E defic ient. Not Available [facility] ([facility]) [address] [facility], [place], [address], 01/09/2025 14:37:13 12/29/19 25 12/30/2024 FOLAT E (FOLI C ACID) , SERUM folate (folic acid), serum 17.0 NG/mL >3.0 normal A serum folat e johny ntrat ion of less than 3.1 ng/mL is consi dered to repre sent clini robert defic iency . Not Available [facility] ([facility]) [address] [facility], [place], [address], 01/09/2025 14:37:14 12/29/19 25 01/01/2025 VITAM IN A, SERUM vitamin A 49.6 ug/dL 20.1-6 2.0 Refer ence inter vals for vitam in A deter mined from [facility] inter nal studi es. Indiv idual s with vitam in A less than 20 ug/dL are consi dered vitam in A defic ient and those with serum johny ntrat ions less than 10 ug/dL are consi dered sever krystina defic ient. This test was jannette galeana and its perfo jenelle e scott eliasri stics deter mined by [facility]. It has not been clear ed or appro saravanan by the Food and Drug Admin istra tion. Not Available [facility] ([facility]) [address] [facility], [place], [address], 01/09/2025 14:37:14 12/29/19 25 12/30/2024 VITAM IN D, 25-HY DROXY vitamin D, 25-hydroxy 30.8 NG/mL 30.0-1 00.0 Vitam in D defic iency has been defin ed by the Insti tute of Medic ine and an Endoc rine Socie ty pract ice guide line as a level of serum 25-OH vitam in D less than 20 ng/mL (1,2) . The Endoc rine Socie ty went on to furth er defin e vitam in D insuf ficie ncy as a level betwe en 21 and 29 ng/mL (2). 1. IOM (Inst itute of Medic ine). 2009. Dieta ry refer ence intak es for calci um and D. Ameila voss [place]: The [facility] . 2. Toni unger MF, Angy ey [place], Rebel off-F errar i KHAN, et al. Evalu ation , treat ment, and preve ntion of vitam in D defic iency : an Endoc rine Socie ty clini robert pract ice guide line. JCEM. 2010; 96(7) :1911 -30. Not Available [facility] ([facility]) [address] [facility], [place], [address], 01/09/2025 14:37:15 12/29/19 25 01/01/2025 VITAM IN B1 (THIA MINE) , BLOOD vit. B1, whole blood 109.8 nmol/ L 66.5-2 00.0 Not Available [facility] ([facility]) [address] [facility], [place], [address], 01/09/2025 14:37:16 12/29/19 25 12/31/2024 METHY LMALO CHUN ACID, SERUM methylmaloni c acid, serum 2061 nmol/ L 0-378 above high normal Not Available [facility] ([facility]) [address] [place], [address], 01/09/2025 14:37:16 12/29/19 25 01/02/2025 COPPE R, SERUM OR PLASM A copper, serum or plasma 101 ug/dL 80-158 Detec tion Limit = 5 Not Available [facility] ([facility]) [address] [place], [address], 01/09/2025 14:37:17 12/29/19 25 01/02/2025 ZINC, PLASM A OR SERUM zinc, plasma or serum 64 ug/dL 44-115 normal Detec tion Limit = 5 Not Available [facility] ([facility]) [address] [place], [address], 01/09/2025 14:37:17 12/29/19 25 12/30/2024 PREAL BUMIN prealbumin 22 mg/dL 12-34 Not Available [facility] ([facility]) [address] [place], [address], 01/09/2025 14:37:18 12/29/19 25 01/09/2025 SELEN IUM, BLOOD selenium, blood 160 ug/L 100-34 0 Detec tion Limit = 10 Not Available [facility] ([facility]) [address] [place], [address], 01/09/2025 14:37:19 03/23/20 25 03/24/2025 FE+TI BC+FE R iron bind.cap.(TI BC) 393 ug/dL 250-45 0 normal Not Available [facility] ([facility]) [address] [place], [address], 03/29/2025 14:36:24 03/23/20 25 03/24/2025 FE+TI BC+FE R UIBC 366 ug/dL 131-42 5 normal Not Available [facility] ([facility]) [address] [place], [address], 03/29/2025 14:36:24 03/23/20 25 03/24/2025 FE+TI BC+FE R iron 27 ug/dL 27-159 normal Not Available [facility] ([facility]) [address] [place], [address], 03/29/2025 14:36:24 03/23/20 25 03/24/2025 FE+TI BC+FE R iron saturation 7 % 15-55 alert low Not Available [facility] ([facility]) [address] [place], [address], 03/29/2025 14:36:24 03/23/20 25 03/24/2025 FE+TI BC+FE R ferritin 16 NG/mL 15-150 normal Not Available [facility] ([facility]) [address] [place], [address], 03/29/2025 14:36:24 03/23/20 25 03/24/2025 CBC WITH DIFFE RENTI AL/PL ATELE T WBC 4.8 x10e3 /uL 3.4-10 .8 normal Not Available [facility] ([facility]) [address] [place], [address], 03/29/2025 14:36:25 03/23/20 25 03/24/2025 CBC WITH DIFFE RENTI AL/PL ATELE T RBC 4.12 x10e6 /uL 3.77-5 .28 normal Not Available [facility] ([facility]) [address] [place], [address], 03/29/2025 14:36:25 03/23/20 25 03/24/2025 CBC WITH DIFFE RENTI AL/PL ATELE T hemoglobin 12.0 g/dL 11.1-1 5.9 normal Not Available [facility] ([facility]) [address] [facility], [place], [address], 03/29/2025 14:36:25 03/23/20 25 03/24/2025 CBC WITH DIFFE RENTI AL/PL ATELE T hematocrit 38.2 % 34.0-4 6.6 normal Not Available [facility] ([facility]) [address] [place], [address], 03/29/2025 14:36:25 03/23/2003/24/2025 CBC WITH DIFFE RENTI AL/PL ATELE T MCV 93 fL 79-97 normal Not Available [facility] ([facility]) [address] [place], [address], 03/29/2025 14:36:25 03/23/20 25 03/24/2025 CBC WITH DIFFE RENTI AL/PL ATELE T MCH 29.1 pg 26.6-3 3.0 normal Not Available [facility] ([facility]) [address] [place], [address], 03/29/2025 14:36:25 03/23/20 25 03/24/2025 CBC WITH DIFFE RENTI AL/PL ATELE T MCHC 31.4 g/dL 31.5-3 5.7 below low normal Not Available [facility] ([facility]) [address] [place], [address], 03/29/2025 14:36:25 03/23/20 25 03/24/2025 CBC WITH DIFFE RENTI AL/PL ATELE T RDW 13.3 % 11.7-1 5.4 Not Available [facility] ([facility]) [address] [place], [address], 03/29/2025 14:36:25 03/23/20 25 03/24/2025 CBC WITH DIFFE RENTI AL/PL ATELE T platelets 295 x10e3 /uL 150-45 0 normal Not Available [facility] ([facility]) [address] [facility], [place], [address], 03/29/2025 14:36:25 03/23/20 25 03/24/2025 CBC WITH DIFFE RENTI AL/PL ATELE T neutrophils 57 % not estab. normal Not Available [facility] ([facility]) [address] [facility], [place], [address], 03/29/2025 14:36:25 03/23/20 25 03/24/2025 CBC WITH DIFFE RENTI AL/PL ATELE T lymphs 32 % not estab. normal Not Available [facility] ([facility]) [address] [facility], [place], [address], 03/29/2025 14:36:25 03/23/20 25 03/24/2025 CBC WITH DIFFE RENTI AL/PL ATELE T monocytes 8 % not estab. normal Not Available [facility] ([facility]) [address] [facility], [place], [address], 03/29/2025 14:36:25 03/23/20 25 03/24/2025 CBC WITH DIFFE RENTI AL/PL ATELE T eos 2 % not estab. normal Not Available [facility] ([facility]) [address] [facility], [place], [address], 03/29/2025 14:36:25 03/23/20 25 03/24/2025 CBC WITH DIFFE RENTI AL/PL ATELE T basos 1 % not estab. normal Not Available [facility] ([facility]) [address] [facility], [place], [address], 03/29/2025 14:36:25 03/23/20 25 03/24/2025 CBC WITH DIFFE RENTI AL/PL ATELE T immature cells OIL MIXER Not Available [facility] ([facility]) [address] [place], [address], 03/29/2025 14:36:25 03/23/2003/24/2025 CBC WITH DIFFE RENTI AL/PL ATELE T neutrophils (absolute) 2.7 x10e3 /uL 1.4-7. 0 normal Not Available [facility] ([facility]) [address] [place], [address], 03/29/2025 14:36:25 03/23/20 25 03/24/2025 CBC WITH DIFFE RENTI AL/PL ATELE T lymphs (absolute) 1.5 x10e3 /uL 0.7-3. 1 normal Not Available [facility] ([facility]) [address] [place], [address], 03/29/2025 14:36:25 03/23/20 25 03/24/2025 CBC WITH DIFFE RENTI AL/PL ATELE T monocytes(ab solute) 0.4 x10e3 /uL 0.1-0. 9 normal Not Available [facility] ([facility]) [address] [place], [address], 03/29/2025 14:36:25 03/23/20 25 03/24/2025 CBC WITH DIFFE RENTI AL/PL ATELE T eos (absolute) 0.1 x10e3 /uL 0.0-0. 4 normal Not Available [facility] ([facility]) [address] [place], [address], 03/29/2025 14:36:25 03/23/20 25 03/24/2025 CBC WITH DIFFE RENTI AL/PL ATELE T baso (absolute) 0.1 x10e3 /uL 0.0-0. 2 normal Not Available [facility] ([facility]) [address] [place], [address], 03/29/2025 14:36:25 03/23/20 25 03/24/2025 CBC WITH DIFFE RENTI AL/PL ATELE T immature granulocytes 0 % not estab. Not Available [facility] ([facility]) [address] [facility], [place], [address], 03/29/2025 14:36:25 03/23/20 25 03/24/2025 CBC WITH DIFFE RENTI AL/PL ATELE T immature grans (abs) 0.0 x10e3 /uL 0.0-0. 1 Not Available [facility] ([facility]) [address] [facility], [place], [address], 03/29/2025 14:36:25 03/23/20 25 03/24/2025 CBC WITH DIFFE RENTI AL/PL ATELE T NRBC OIL MIXER Not Available [facility] ([facility]) [address] [facility], [place], [address], 03/29/2025 14:36:25 03/23/20 25 03/24/2025 CBC WITH DIFFE RENTI AL/PL ATELE T hematology comments: OIL MIXER Not Available [facility] ([facility]) [address] [facility], [place], [address], 03/29/2025 14:36:25 03/23/20 25 03/24/2025 COMP. METAB OLIC PANEL (14) glucose 87 mg/dL 70-99 normal Not Available [facility] ([facility]) [address] [facility], [place], [address], 03/29/2025 14:36:26 03/23/20 25 03/24/2025 COMP. METAB OLIC PANEL (14) BUN 20 mg/dL 6-24 normal Not Available [facility] ([facility]) [address] [facility], [place], [address], 03/29/2025 14:36:26 03/23/20 25 03/24/2025 COMP. METAB OLIC PANEL (14) creatinine 0.96 mg/dL 0.57-1 .00 normal Not Available [facility] ([facility]) [address], [place], [address], 03/29/2025 14:36:26 03/23/20 25 03/24/2025 COMP. METAB OLIC PANEL (14) eGFR 75 mL/mi n/1.7 3 >59 normal Not Available [facility] ([facility]) [address] [place], [address], 03/29/2025 14:36:26 03/23/20 25 03/24/2025 COMP. METAB OLIC PANEL (14) BUN/creatini ne ratio 21 9-23 normal Not Available [facility] ([place] [facility]) [address] [place] [place], [address], 03/29/2025 14:36:26 03/23/20 25 03/24/2025 COMP. METAB OLIC PANEL (14) sodium 139 mmol/ L 134-14 4 normal Not Available [facility] ([place] [facility]) [address] [facility], [place], [address], 03/29/2025 14:36:26 03/23/20 25 03/24/2025 COMP. METAB OLIC PANEL (14) potassium 4.6 mmol/ L 3.5-5. 2 normal Not Available [facility] ([place] [facility]) [address] [place] [place], [address], 03/29/2025 14:36:26 03/23/20 25 03/24/2025 COMP. METAB OLIC PANEL (14) chloride 104 mmol/ L 96-106 normal Not Available [facility] ([place] [facility]) [address] [place] [place], [address], 03/29/2025 14:36:26 03/23/20 25 03/24/2025 COMP. METAB OLIC PANEL (14) carbon dioxide, total 23 mmol/ L 20-29 normal Not Available [facility] ([place] [facility]) [address] [place] [place], [address], 03/29/2025 14:36:26 03/23/20 25 03/24/2025 COMP. METAB OLIC PANEL (14) calcium 9.5 mg/dL 8.7-10 .2 normal Not Available [facility] ([facility]) [address] [place], [address], 03/29/2025 14:36:26 03/23/20 25 03/24/2025 COMP. METAB OLIC PANEL (14) protein, total 7.3 g/dL 6.0-8. 5 normal Not Available [facility] ([facility]) [address] [place], [address], 03/29/2025 14:36:26 03/23/20 25 03/24/2025 COMP. METAB OLIC PANEL (14) albumin 4.3 g/dL 3.9-4. 9 normal Not Available [facility] ([facility]) [address] [place], [address], 03/29/2025 14:36:26 03/23/20 25 03/24/2025 COMP. METAB OLIC PANEL (14) globulin, total 3.0 g/dL 1.5-4. 5 Not Available [facility] ([facility]) [address] [place], [address], 03/29/2025 14:36:26 03/23/20 25 03/24/2025 COMP. METAB OLIC PANEL (14) bilirubin, total 0.4 mg/dL 0.0-1. 2 normal Not Available [facility] ([facility]) [address] [place], [address], 03/29/2025 14:36:26 03/23/20 25 03/24/2025 COMP. METAB OLIC PANEL (14) alkaline phosphatase 91 IU/L 44-121 normal Not Available [facility] ([facility]) [address] [place], [address], 03/29/2025 14:36:26 03/23/20 25 03/24/2025 COMP. METAB OLIC PANEL (14) AST (SGOT) 22 IU/L 0-40 normal Not Available [facility] ([facility]) [address] [place] [place], [address], 03/29/2025 14:36:26 03/23/20 25 03/24/2025 COMP. METAB OLIC PANEL (14) ALT (SGPT) 19 IU/L 0-32 normal Not Available [facility] ([facility]) [address] [place], [address], 03/29/2025 14:36:26 03/23/20 25 03/24/2025 LIPID PANEL cholesterol, total 136 mg/dL 100-19 9 normal Not Available [facility] ([facility]) [address] [place], [address], 03/29/2025 14:36:27 03/23/20 25 03/24/2025 LIPID PANEL triglyceride s 74 mg/dL 0-149 normal Not Available [facility] ([facility]) [address] [place], [address], 03/29/2025 14:36:27 03/23/20 25 03/24/2025 LIPID PANEL HDL cholesterol 61 mg/dL >39 normal Not Available [facility] ([facility]) [address] [place], [address], 03/29/2025 14:36:27 03/23/20 25 03/24/2025 LIPID PANEL VLDL cholesterol robert 15 mg/dL 5-40 Not Available [facility] ([facility]) [address] [place], [address], 03/29/2025 14:36:27 03/23/20 25 03/24/2025 LIPID PANEL LDL chol calc ([facility]) 60 mg/dL 0-99 Not Available [facility] (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) [address] [facility], [place], [address], 03/29/2025 14:36:27 03/23/2003/24/2025 HEMOG LOBIN A1C hemoglobin A1C 5.3 % 4.8-5. 6 normal Predi abete s: 5.7 - 6.4 Diabe serena: >6.4 Glyce khai contr ol for adult s with diabe serena: <7.0 Not Available [facility] ([facility]) [address] [facility], [place], [address], 03/29/2025 14:36:28 03/23/20 25 03/24/2025 FOLAT E (FOLI C ACID) , SERUM folate (folic acid), serum 18.7 NG/mL >3.0 normal A serum folat e johny ntrat ion of less than 3.1 ng/mL is consi dered to repre sent clini robert defic iency . Not Available [facility] ([facility]) [address] [facility], [place], [address], 03/29/2025 14:36:28 03/23/2003/24/2025 VITAM IN D, 25-HY DROXY vitamin D, 25-hydroxy 27.8 NG/mL 30.0-1 00.0 below low normal Vitam in D defic iency has been defin ed by the Insti tute of Medic ine and an Endoc rine Socie ty pract ice guide line as a level of serum 25-OH vitam in D less than 20 ng/mL (1,2) . The Endoc rine Socie ty went on to furth er defin e vitam in D insuf ficie ncy as a level betwe en 21 and 29 ng/mL (2). 1. IOM (Inst itute of Medic ine). 2010. Dieta ry refer ence intak es for calci um and D. Washi ngton [place]: [facility] . 2. Toni unger MF, Angy chavez [place], Rebel off-F errar i KHAN, et al. Evalu ation , treat ment, and preve ntion of vitam in D defic iency : an Endoc rine Socie ty clini robert pract ice guide line. JCEM. 2010; 96(7) :1911 -30. Not Available [facility] ([facility]) [address] [place], [address], 03/29/2025 14:36:29 03/23/20 25 03/27/2025 VITAM IN B1 (THIA MINE) , BLOOD vit. B1, whole blood 119.4 nmol/ L 66.5-2 00.0 Not Available [facility] ([facility]) [address] [place], [address], 03/29/2025 14:36:30 03/23/20 25 03/29/2025 METHY LMALO CHUN ACID, SERUM methylmaloni c acid, serum 244 nmol/ L 0-378 Not Available [facility] ([facility]) [address] [place], [address], 03/29/2025 14:36:31 03/23/20 25 03/26/2025 COPPE R, SERUM OR PLASM A copper, serum or plasma 103 ug/dL 80-158 Detec tion Limit = 5 Not Available [facility] ([facility]) [address] [place], [address], 03/29/2025 14:36:32 03/23/20 25 03/24/2025 PREAL BUMIN prealbumin 21 mg/dL 12-34 Not Available [facility] ([facility]) [address] [place], [address], 03/29/2025 14:36:32 Result Notes None recorded. Problems Name Problem SNOMED Code Status Onset Date Resolution Date Notes Provider Name and Address Organization Details Recorded Time Cholelithiasi s without obstruction 05997064 Active 2024 JOSUE Duran [address], [place], [address] , [place] - [facility] - [place] & [place] 5 13:25:46 Vitamin D deficiency 28930958 Active 2024 JOSUE Duran [address], [place], [address] , [place] - [facility] & [place] 5 13:29:08 Iron deficiency 87034244 Active 2024 JOSUE Duran [address], [place], [address] , [place] - [facility] [place] & [place] 5 13:29:18 Intentional weight loss 531919240 Active 2024 JOSUE Duran [address] , [place], [address] , [place] - [facility] & [place] 5 13:30:16 Obesity 168674283 Active 2024 JOSUE Duran [address] , [place], [address] , [place] - [facility] & [place] 5 10:19:29 Postoperative pain 810593031 Active 2024 JOSUE Duran [address] , [place], [address] , [place] - [facility] & [place] 5 13:48:30 Disorder of function of stomach 441999677 Active 2024 JOSUE Duran [address], [place], [address] , [place] - [facility] & [place] 5 08:59:01 Cobalamin deficiency 558239720 Active 2024 JOSUE Duran [address], [place], [address] , [place] - [facility] & [place] 5 08:59:52 Body mass index 30+ - obesity 954798717 Active [address], [place], [address] , [facility] - [facility] & [place] 10:02:16 Problem Notes None recorded. Procedures Surgical History Date Name Laterality Status Provider Name and Address Organization Details Recorded Time 025 Cholecystectomy completed Zoie Sinclair [place] - [facility] & [place] 01/19/2025 10:05:49 022 Crow-en-Y gastrojejunostomy completed [address], [place], [place], [address] [place] [address], [facility] - [facility] & [place] 12/29/2024 13:41:14 sleeve resection of stomach completed JOSUE [address], [place], [place], [address] [place] [address], [facility] & [place] 12/29/2024 13:41:[address], [place], [place], [address] [place] [address], [facility] - [facility] & [place] 12/29/2024 13:40:28 reconstruction of anterior cruciate ligament of knee joint completed JOSUE [address] Rd, [place], [place], [address] [place] [address], [facility] - [facility] & [place] 12/29/2024 13:40:39 thyroidectomy completed [address], [place], [place], [address] [place] [address], [facility] - [facility] & [place] 12/29/2024 13:41:03 fusion of sacroiliac joint by posterior approach completed J[address], [place], [address] [place] [address], [facility] - [facility] & [place] 12/29/2024 13:42:37 Imaging Results None recorded. Procedure Notes None recorded. Medical Equipment None Reported. Allergies No known drug allergies Medications Name Sig Start Date Stop Date Status Note LastModified by Organization Details LastModified Time neomycin-po lymyxin-hyd rocort 3.5 mg/mL-10,00 0 unit/mL-1 % ear solution 03/23 completed Not Available Not Available Not Available levothyroxi ne 137 mcg tablet TAKE 1 TABLET BY MOUTH ONCE DAILY . APPOINTME NT REQUIRED FOR FUTURE REFILLS active Not Available Not Available No t Available sumatriptan 100 mg tablet TAKE 1 TABLET BY MOUTH ONCE DAILY NEEDED FOR MIGRAINE HEADACHE active Not Available Not Available No t Available sulfamethox azole 800 mg-trimetho prim 160 mg tablet TAKE 1 TABLET BY MOUTH TWICE DAILY FOR 5 DAYS 12/29 completed Not Available Not Available Not Available bisoprolol fumarate 5 mg tablet TAKE 1 TABLET BY MOUTH ONCE DAILY active Not Available Not Available No t Available amoxicillin 875 mg tablet TAKE 1 TABLET BY MOUTH EVERY 12 HOURS 12/29 completed Not Available Not Available Not Available hydrocodone 7.5 mg-acetamin ophen 325 mg tablet TAKE 1 TABLET BY MOUTH EVERY 6 HOURS IF NEEDED FOR SEVERE PAIN FOR UP TO 5 DAYS 12/29 completed Not Available Not Available Not Available cephalexin 500 mg capsule TAKE 1 CAPSULE BY MOUTH TWICE DAILY FOR 5 DAYS 12/29 completed Not Available Not Available Not Available cyanocobala min (vit B-12) 1,000 mcg/mL injection solution INJECT 1ML SUBCUTANE OUSLY ONCE WEEKLY FOR 6 WEEKS active Not Available Not Available No t Available gabapentin 300 mg capsule TAKE 1 CAPSULE BY MOUTH THREE TIMES DAILY FOR 7 DAYS 01/19 completed Not Available Not Available Not Available omeprazole 20 mg capsule,del ayed release TAKE 1 CAPSULE BY MOUTH ONCE DAILY active Not Available Not Available No t Available montelukast 10 mg tablet TAKE 1 TABLET BY MOUTH AT BEDTIME FOR ALLERGY SYMPTOMS active Not Available Not Available No t Available mupirocin 2 % topical ointment APPLY TO BOTH NOSTRILS TWICE DAILY FOR 5 DAYS BEFORE SURGERY 12/29 completed Not Available Not Available Not Available methylpredn isolone 4 mg tablets in a dose pack TAKE BY MOUTH DIRECTED ON INSIDE OF PACKAGE 12/29 completed Not Available Not Available Not Available celecoxib 100 mg capsule TAKE 1 CAPSULE BY MOUTH TWICE DAILY FOR 7 DAYS 01/19 completed Not Available Not Available Not Available fluticasone propionate 50 mcg/actuati on nasal spray,suspe nsion USE 2 SPRAY(S) IN EACH NOSTRIL ONCE DAILY active Not Available Not Available No t Available levocetiriz ine 5 mg tablet TAKE 1 TABLET BY MOUTH ONCE DAILY active Not Available Not Available No t Available tranexamic acid 650 mg tablet TAKE 2 TABLETS BY MOUTH EVERY 8 HOURS FOR HEAVY BLEEDING DURING MENSTRUAT ION THIS MEDICAITI ON IS FOR HEAVY BLEEDING NOT TO BE USED DAILY active Not Available Not Available No t Available Qsymia 3.75 mg-23 mg capsule, extended release Take 1 capsule every day by oral route for 14 days. 07/13 completed Not Available Not Available Not Available Qsymia 7.5 mg-46 mg capsule, extended release Take 1 capsule every day by oral route. 2024 active Not Available Not Available Not Avai lable Vitals Date Recorded Body height Body mass index (BMI) Body weight Heart rate Body temperature Systolic And Diastolic Provider Name and Address Organization Details Last Updated DateTime 5 175.26 cm 36.9 kg/m2 825646. 73 g 63 /min 97.9 [degF] 127/58 mm[Hg] [facility] & [place] 5 13:17:22 Date Recorded Body height Body mass index (BMI) Body weight Body temperature Heart rate Systolic And Diastolic Provider Name and Address Organization Details Last Updated DateTime 5 175.26 cm 36.7 kg/m2 459349. 7 g 97.1 [degF] 59 /min 137/84 mm[Hg] Zoie Sinclair [facility] & [place] 5 10:06:11 Date Recorded Body height Body temperature Heart rate Body mass index (BMI) Body weight Systolic And Diastolic Provider Name and Address Organization Details Last Updated DateTime 5 175.26 cm 98.3 [degF] 55 /min 38.5 kg/m2 287231. 45 g 125/74 mm[Hg] [facility] & [place] 5 09:03:40 Date Recorded Body height Body mass index (BMI) Body weight Heart rate Systolic And Diastolic Provider Name and Address Organization Details Last Updated DateTime 06/22/2025 175.26 cm 38.7 kg/m2 538882.6 4 g 64 /min 137/79 mm[Hg] [facility] [place] 06/22/2025 09:32:22 Social History None recorded. Functional Status Question Answer Note LastModified by Organization D etails LastModified Time What is your level of alcohol consumption? None [email or web address] Information not available 06/22/2025 Mental Status None recorded. Family History Relationship Description Onset Age of this Age Resolved Age Notes LastModified by Organization Details LastModified Time Paternal Grandfather Myocardial infarction pt. added direct ly (12/26) [email or web address] Not available 12/26/2024 20:19:50 Paternal Grandfather Heart disease pt. added direct ly (12/26) [email or web address] Not available 12/26/2024 20:20:11 Paternal Uncle Myocardial infarction pt. added direct ly (12/26) [email or web address] Not available 12/26/2024 20:19:50 Paternal Uncle Heart disease pt. added direct ly (12/26) [email or web address] Not available 12/26/2024 20:20:12 Maternal Grandfather Heart disease pt. added direct ly (12/26) [email or web address] Not available 12/26/2024 20:20:12 Brother Obesity pt. added direct ly (12/26) [email or web address] Not available 12/26/2024 20:20:39 Daughter Obesity pt. added direct ly (12/26) [email or web address] Not available 12/26/2024 20:20:39 Maternal Grandmother Obesity pt. added direct ly (12/26) [email or web address] Not available 12/26/2024 20:20:39 Maternal Aunt Obesity pt. added direct ly (12/26) [email or web address] Not available 12/26/2024 20:20:39 Medical History Condition Response Anxiety Disorder Y Autoimmune disease Y Bleeding Disorder N Anemia Y Arthritis Y Liver Disease N Heart Disease N Pulmonary Embolism N Deep Vein Thrombosis N Hypothyroidism Y Kidney Disease N Gynecological HistoryNo gynecological history recorded. Obstetrics History GPAL:G 0 P 0 0 0 0 Immunizations Vaccine Type Date Status Note Provider Nam e and Address Organization Details Recorded Time influenza, unspecified formulation 08/05/2024 completed Kylah casanova [place] - [facility] & [place] 12/29/2024 13:14:26 Past Encounters Encounter ID Performer Location Encounter Start Date Encounter Closed Date Diagnosis/Indication Diagnosis SNOMED-CT Code Diagnosis ICD10 Code Diagnosis IMO Codes Diagnosis Note [id number] JOSUE Duran [facility] and [facility] [address] [place] [address] 12/29/2024 12:58:34 12/29/2024 14:04:22 Cholelithiasis without obstruction 31381444 K80.20 Patient is to have robotic multiport cholecyste ctomy. All risks, complicati ons, alternativ es were explained to the patient agreed upon. These include but not limited to nausea, vomiting, diarrhea, bowel/blad graciela/vessel injury, bile duct injury, bile leak and need for additional surgery or open surgery. Patient has been given education an opportunit y to voice all questions and agrees to proceed. Patient will return to clinic for postoperat marla visit 2 weeks after surgery. Vitamin D deficiency 347 54938 E55.9 We are checking bariatric vitamin panel today. We will contact patient to manage deficiency Iron deficiency 73084275 E61.1 We are checking bariatric vitamin panel today. We will contact patient to manage deficiency History of gastrectomy 005353138 Z90.3 Advised qid intake 50% protein 1200 calories/d y less than 100 carbs/dyLo ng discussion today of InBody results including PBF(percen t body fat) SMM (skeletal muscle mass) Visceral fat level level BMR Segmental Fat Analysis and Segmental Lean Analysis.E ncouraged pt to take minimal calories as per BMR and to anticipate changes in SMM and PBF values not just total weight.Fol low-up with Repeat MAGDALENE in 3mth suggested Patient is status post bariatric surgery and at increased risk for vitamin deficienci es and malnutriti on.Specifi robles discussed the importance of iron B12 and B1 supplement ation status post Crow-en-Y gastric bypass. Specifical ly discussed long-term poor sequela of chronic thiamine deficiency .Strongly encouraged routine bariatric followup skilled nursing with our office.Bar iatric vitamin panel ordered today. Patient will be contacted to correct any vitamin deficienci es. At [facility] ed risk of nutritional deficit 518124554 Z91.89 Obesity 246124698 E66.9 Medical weight loss options discussed with the patient today. Discussed possible options of Contrave and Qsymia as these may be more affordable out-of-poc Kevin tang we will discuss this further once she is healed status post cholecyste ctomy. [id number] JOSUE Duran vishnu Bariat[facility] [address] [facility] [address] [place] [address] 01/19/2025 09:52:30 01/20/2025 10:22:39 Postoperative visit 314856146 Z48.89 Patient is doing well status post cholecyste ctomy. Encouraged patient to return to typical bariatric diet. She is to focus on high-prote in low-fat low sugar options.Josue reyna is to report any worsening abdominal symptoms.Juan hollis bariatric follow-up March 2025 [id number] JOSUE Duran vishnu [facility] [address] [facility] [address] [place] [id number] 03/23/2025 08:56:58 03/23/2025 10:24:29 Disorder of function of stomach 063295497 K31.9 R10.13 [id number] Patient is to continue PPI. She is to report any worsening reflux or prandial issue.Foll ow up 3 months Iron deficiency 42762238 E61.1 We are checking bariatric vitamin panel today. We will contact patient to manage deficiency Vitamin D deficiency 347 09794 E55.9 We are checking bariatric vitamin panel today. We will contact patient to manage deficiency Cobalamin deficiency 190 127076 E53.8 [id number] Patient has now completed 6 weeks of B12 injections . She is to continue to take oral B12 supplement ation. We are checking bariatric lab panel today and will contact patient to continue to manage deficiency History of gastrectomy 242040701 Z90.3 Advised qid intake 50% protein 1200 calories/d y less than 100 carbs/dyLo ng discussion today of InBody results including PBF(percen t body fat) SMM (skeletal muscle mass) Visceral fat level level BMR Segmental Fat Analysis and Segmental Lean Analysis.E ncouraged pt to take minimal calories as per BMR and to anticipate changes in SMM and PBF values not just total weight.Fol low-up with Repeat MAGDALENE in 3mth suggested Patient is status post bariatric surgery and at increased risk for vitamin deficienci es and malnutriti on. Bariatric vitamin panel ordered today. Patient will be contacted to correct any vitamin deficienci es. At [facility] ed risk of nutritional deficit 572753555 Z91.89 Body mass index 30+ - obesity 517970845 E66.9 [id number] Encouraged patient to refocus on bariatric basics. Advised she track carbs calories and protein. Advised healthy protein/ca lories for breakfast each morning instead of only copy until noon. Encouraged patient to continue to shift carbonated beverages to noncarbona estevan options as carbonatio n may exacerbate reflux issues.Adv ised she continue 80 g of protein in 1200 calories daily.Diet itian visit advisedFol low up 3 months [id number] JOSUE Duran [facility] vishnu Bariatric s and Adv Surg [address] [place] [address] 06/22/2025 09:24:21 06/22/2025 10:43:25 Disorder of function of stomach 889731516 K31.9 R10.13 [id number] Patient is to continue PPI. She is to report any worsening reflux or prandial issue.Foll ow up 3 months Cobalamin deficiency 190 679009 E53.8 [id number] Patient has now completed 6 weeks of B12 injections . She is to continue to take oral B12 supplement ation.Pt will be due for repeat labs at next office visit 2 mth Vitamin D deficiency 347 59869 E55.9 Pt will be due for repeat labs at next office visit 2 mth Iron deficiency 57595654 E61.1 Pt will be due for repeat labs at next office visit 2 mth Obesity 669939571 E66.81 2 Z68.38 Z98.84 [id number] Medical weight loss options discussed with the patient today. Discussed possible options of Contrave and Qsymia as these may be more affordable out-of-poc ket.We will start patient on Qsymia.Dis cussed medication mechanism of action to include decreased hunger and that is better control of caloric intake. Patient advise medication has no mechanism to just start weight loss. She must adjust her daily habits to see desired weight loss.Discu ssed ramping schedule this medication . Discussed side effect profile of this medication . Patient is advised she may see elevated blood pressure while starting this medication . She is advised to check blood pressure and report any elevated readings.P atient advised weight loss can cause change in fertility. Patient advised to use control measures Dietary changes discussed at length today.Enco uraged patient track carbs calories and protein Advised patient focus on 12-1300 calories less than 100carbs and 70-80 g of protein daily.Nicolle ent advised she is access to our dietitian as needed Follow up 2 months History of gastrectomy 014671034 Z90.3 [id number] Advised qid intake 50% protein 1200 calories/d y less than 100 carbs/dyLo ng discussion today of InBody results including PBF(percen t body fat) SMM (skeletal muscle mass) Visceral fat level level BMR Segmental Fat Analysis and Segmental Lean Analysis.E ncouraged pt to take minimal calories as per BMR and to anticipate changes in SMM and PBF values not just total weight.Fol low-up with Repeat MAGDALENE in ELISA BRITO RD, LD [facility]ariat[facility] Adv Surg [address] [place] [address] 06/22/2025 09:53:48 06/22/2025 10:07:30 Morbid obesity 027767478 E66.01 70341 BMI 38.7 wt loss Diet education [id number] Z71.3 [id number] Health Concerns Section Related Observation LastModified by Organization Detai ls LastModified Time None Recorded Concern Status LastModified by Organization Details LastModified Time None Recorded Advance Directives Directive None Recorded Payers Insurance Date Sequence Insurance Name Policy Number Policy Billings Covered Member ID Billings Member ID Guarantor Name 12/25/2024 2 [employer] (MEDICAID REPLACEMENT - HMO) [id number] Magda Boyd [id number] Magda Barnes 08/19/2025 1 [place] [id number] Magda Barnes [id number] Magda Barnes 12/25/2024 1 [employer] [facility] (MEDICAID HMO) Magda Boyd [id number] Magda Barnes Notes Date Note Type Note Provider Name and Address Organization Details Recorded Time 12/29/2024 text/html ROS as noted in the HPI 44yo s/p LSG 2017, ligamentum teres cardiopexy 2018, and RNY revision May 2022 Dr Shiva Villasenor.Patient has not been seen in our office since Februaryatient presents today to discuss gallbladder removal. Patient states she has had intermittent abdominal pain over the last year. The pain started left upper quadrant into her back but here recently has been more significantly right upper quadrant obstructive-type pain. She states when it is hit his is severe. PCP did check gallbladder ultrasound 12/12/2024 showing multiple stones. Patient sates she was seen at [facility] ED over the weekend and had CT abdomen. ED records reviewed.Patient does have reflux disease requiring daily omeprazole. Denies NV hematemesis. She does continue to focus on high-protein diet. She does take vitamins as recommended. Patient has a history of vitamin-D deficiencyIn body today shows patient has gained 28 lb since February 2022. Current BMI is 36.9 with 47.9% body fat basal metabolic rate 1646. Patient states PCP did discuss additional weight loss with her and attempt to start her on Wegovy. This was $1300 out of pocket and patient is not able to afford this. She would like to discuss additional medical weight loss options after she has address GB issue. 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 She has less abdominal symptoms. She is tolerating returned to routine diet. She does report some left abdomen discomfort after eating. Denies nausea vomiting loose stool.Denies : Fever Pain Swelling upper extremities. Shortness of breath/Dyspnea.Activi ty limited per postop restriction. Ambulating often.Tolerating po intake and progressing diet back to their norm.Recent labs show elevated MMA. Patient is now taking injections and sublingually B12 as instructed. JOSUE Duran [address], [place], [address], [facility] & [place] 01/19/2025 10:28:03 03/23/2025 text/html ROS as noted in the HPI 44yo s/p LSG 2018, ligamentum teres cardiopexy 2019, and RNY revision May 2022 Dr Shiva Villasenor.Patient presents the office today for routine follow-up status post bariatric surgery. Patient doing well. She reports continued improvement status post cholecystectomy.Revie w of in body shows patient has gained 10 lb total of which 4.4 lb of skeletal muscle. Current BMI is 38.4 47% body fat basal metabolic rate 1722Review of patient's diet shows patient drinks copy each morning and has no intake until 10/19. She also reports recent change from mountain dew 2 0 sugar carbonated beverages. She reports 2 daily. She estimates calories greater than 1200 and 80 g of protein daily.Taking routine vitamins as advised. Hx of iron vit D deficiency Dec MMA 2060. Patient did do 6 weeks of B12 injections. She continues to take oral B12 supplementation. She is due for labs todayHeartburn/gastro esophageal reflux: Continues to take omeprazole Denies breakthrough symptomsPt Denies : abdominal pain, prandial issues Nausea, Vomiting, bowel or bladder issuesPt is happy with their quality of life after Weight loss Surgery. @01/19/25 OV - Patient presents for Post-Op Check s/p 01/05/25 [address] Path benignPatient reports she is feeling better now status post cholecystectomy. She has less abdominal symptoms. She is tolerating returned to routine diet. She does report some left abdomen discomfort after eating. Denies nausea vomiting loose stool.Denies : Fever Pain Swelling upper extremities. Shortness of breath/Dyspnea.Activi ty limited per postop restriction. Ambulating often.Tolerating po intake and progressing diet back to their norm.Recent labs show elevated MMA. Patient is now taking injections and sublingually B12 as instructed. 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 She is asking for medical weight loss options today. She states she needs something to jump start her weight loss. She has added protein shake each morning for breakfast as recommended.Review of in body shows patient has gained an additional 2 lb while losing 1.3 lb of skeletal muscle mass. Current BMI 38.7 with 48.4% body fat basal metabolic rate 1696 73.4 lb skeletal muscle mass which is 118% predictedPatient denies prandial issue Reports q.i.d. small meal intake. Reports >70g/dy protein intake and good hydration. Daily Calories 1200Taking routine vitamins as advised. Hx of iron vit D deficiency Feb MMA 2060Heartburn/gastroe sophageal reflux: controlled on omeprazole. Pt is needing refillPt Denies : abdominal pain, prandial issues Nausea, Vomiting, bowel or bladder issuesPt states no chance of due to abstinance March2025 OV - Patient doing well. She reports continued improvement status post cholecystectomy.Revie w of in body shows patient has gained 10 lb total of which 4.4 lb of skeletal muscle. Current BMI is 38.4 47% body fat basal metabolic rate 1722Review of patient's diet shows patient drinks copy each morning and has no intake until 10/19. She also reports recent change from [employer] dew 2 0 sugar carbonated beverages. She reports 2 daily. She estimates calories greater than 1200 and 80 g of protein daily.Taking routine vitamins as advised. Hx of iron vit D deficiency b MMA 2060. Patient did do 6 weeks of B12 injections. She continues to take oral B12 supplementation. She is due for labs todayHeartburn/gastro esophageal reflux: Continues to take omeprazole Denies breakthrough symptomsPt Denies : abdominal pain, prandial issues Nausea, Vomiting, bowel or bladder issuesPt is happy with their quality of life after Weight loss Surgery. @01/19/25 OV - Patient presents for Post-Op Check s/p 01/05/25 [address] Path benignPatient reports she is feeling better now status post cholecystectomy. She has less abdominal symptoms. She is tolerating returned to routine diet. She does report some left abdomen discomfort after eating. Denies nausea vomiting loose stool.Denies : Fever Pain Swelling upper extremities. Shortness of breath/Dyspnea.Activi ty limited per postop restriction. Ambulating often.Tolerating po intake and progressing diet back to their norm.Recent labs show elevated MMA. Patient is now taking injections and sublingually B12 as instructed. JOSUE Duran [address] , [place], [address], [facility] & [place] 06/22/2025 10:31:21 06/22/2025 text/html ADIME TemplateA: RDN met w/Magda Barnes for MWL f/up via office visit s/p RNY 2021 Current Weight: 262.4#Notes on weight: Signs/SymptomsN/V/C/D : None Pertinent Labs/Meds/Vitamin regimen: taking vitamins as recommended Physical activity: walks, [place] further away Tracking food/beverages consumed: Est. daily kcal intake: 1200 Est. daily protein intake: 65-70 gm Est. daily fluid intake: 64 oz Meal Pattern: Eats 4 times a day Additional notes/concerns: Patient states she snacks a lot. She is drinking a protein shake for breakfast, eats fries for lunch, eats a lot of past and eats out a lot. Patient eating a lot of high kcal foods with little fiber or protein, Recommended decreasing eating out to 2 times a week and work on increasing protein and fiber. Provided manual with sample menu and meal and snack ideas I: RDN Recommendations/Goals :1. Eat 5-6 times a day2. Decrease eating out to 2 times a week3. Review manual for meal and snack ideas4. Increase protein to 70-100 gm/day5. Track carb, fat, and fiber intake in addition to protein and kcal6. Physical activity 3 times a week 20 min Pt verbally agreed to recommendations and goals. Denied further questions/concerns. M/E: RDN will monitor weight loss, labs, and lifestyle modifications. Will f/up as scheduled or PRN. at EST. ELISA BRITO RD, LD [address] [facility], [place], [address], [facility] & [place] 06/22/2025 13:36:55 OBGyn Episode No OBEpisode recorded.
--- NOTE | 2025-09-29 21:56 | PC.NURSE ---
2140- patient placed in c collar in triage
--- NOTE | 2025-09-29 22:00 | ECG_ITS ---
APPROVED REPORT Exam: Resting ECG HR:74 bpm ECG Measurements Heart Rate 74 AXES MD 164 P 56 QRSd 85 QRS 59 QT 368 T 23 QTc 396 Conclusion SINUS RHYTHM NORMAL ECG UNCONFIRMED REPORT Normal sinus rhythm. No ST elevation or depression. QTc normal at 396. Electronically signed by : CANDIDA SAGASTUME, 10/03/2025 07:12:12
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
[2025-09-29] MEDS: ORPHENADRINE CITRATE 60MG/2ML VIAL 60 MG IV (22:03)
[2025-09-29] MEDS: ACETAMINOPHEN 1,000MG/100ML VIAL 1000 MG IV (22:03)
[2025-09-29] MEDS: ONDANSETRON 4MG/2ML VIAL 4 MG IV (22:03)
--- NOTE | 2025-09-29 22:15 | PC.NURSE ---
Pt ambulatory to restroom
[2025-09-29 22:18] VITALS: BP 141/89; PULSE 75; O2SAT 99
[2025-09-29 22:30] VITALS: BP 130/88; PULSE 68; O2SAT 99
[2025-09-29 22:30] LABS: Microscopic, Urine URINE MICROSCOPIC (MICROSCOPIC)
[2025-09-29 22:33] LABS: Bilirubin,Urine Negative (Negative); Color,Urine YELLOW (Yellow); Glucose,Urine (UA) Negative (Negative); Ketones,Urine Negative (Negative); Leukocyte Esterase,Urine 3+ (Negative); PH,Urine 7.0 (5.0-8.5); Protein,Urine Negative (Negative); Specific Gravity, Urine 1.010 (1.005-1.030); Urobilinogen,Urine 1.0 EU/dl (0.2)
[2025-09-29 22:37] LABS: Urine Pregnancy, HCG Qual. Negative (Negative)
[2025-09-29 22:53] VITALS: PULSE 74; O2SAT 97
[2025-09-29 22:53] LABS: Amorphous Sediment,Urine 2+ /lpf; Bacteria,Urine 3+ /lpf; WBC,Urine 20-50 #/hpf (0-3)
[2025-09-29 23:00] VITALS: BP 121/73
[2025-09-29 23:23] VITALS: BP 120/70; PULSE 74; RESP 20; TEMP 36.8; O2SAT 97
== END 2025-09-29 23:35 | disposition home or self-care (01) ==
PROVIDERS: Nurse Practitioner; Emergency Provider Student in an Organized Health Care Education/Training Program; PCP Nurse Practitioner Family
DX: M54.2 Cervicalgia (principal); N39.0 Urinary tract infection, site not specified; V87.7XXA Person injured in collision between other specified motor vehicles (traffic), initial encounter
CPT/HCPCS: 70450; 71045; 72125; 73030; 81001; 81025; 87086; 93005; 96374; 96375; 99285; J0131; J2360; J2405